=== PATIENT | female | born 1955 | race African-American/Black ===

== ENCOUNTER 2016-06-27 09:41 | Emergency (ER) ==
[2016-06-27 10:24] VITALS: BP 158/82
--- NOTE | 2016-06-27 10:49 | PROVIDER DOCUMENTATION ---
HPI-Rash/Wound/ReCheck - General Chief Complaint: Abscess Stated Complaint: ABSCESS Time Seen by Provider: 06/27/16 10:31 Source: patient Allergies/Adverse Reactions: Allergies Allergy/AdvReac Type Severity Reaction Status Date / Time amoxicillin Allergy Unknown RASH Verified 06/27/16 10:25 Home Medications: Home Medication List Medication Instructions Recorded Confirmed Last Taken Type Amlodipine [Norvasc] 5 mg PO DAILY 01/25/16 01/29/16 01/28/16 18:00 History Cyclobenzaprine [Flexeril] 10 mg PO TID 01/25/16 01/29/16 01/28/16 18:00 History Divalproex Sodium 125 mg PO DAILY 01/25/16 01/29/16 01/28/16 18:00 History Fenofibrate [Tricor] 145 mg PO QHS 01/25/16 01/29/16 01/28/16 18:00 History Gabapentin 300 mg PO DAILY 01/25/16 01/29/16 01/28/16 18:00 History Metoprolol [Lopressor] 25 mg PO DAILY 01/25/16 01/29/16 01/28/16 18:00 History Doxycycline 100 mg PO BID #20 capsule 02/01/16 Unknown Rx Oxycodone HCl/Acetaminophen 1 each PO DAILY #10 tablet 02/01/16 Unknown Rx [Endocet 7.5-325 mg Tablet] Hydrocodone/Acetaminophen [[place] 1 each PO Q4-6H PRN PRN #12 tablet 06/27/16 Unknown Rx 5-325 Tablet] - History of Present Illness-Dermatology Nature of Presenting Problem: Pt is 61 y/o F presents to the ED with pain at her perirectal region. Pt states having bilateral above the knee amputations due to poor circulation. Pt states pain has been present for 4 days. Location: reports: other (perirectal region) Quality: reports: painful Severity: reports: mild Onset/Duration: reports: 4 days ago Timing: reports: still present Context/Associated Symptoms: reports: denies symptoms Identifiable cause?: No Exposure: reports: unknown cause Locality of Occurance: Home Similar Symptoms Previously?: Yes Recently seen or treated by another doctor?: No Review of Systems - Adult - REVIEW OF SYSTEMS - ADULT Constitutional: denies: chills, fever Eyes: denies: blurred vision, double vision Ears, Nose, Mouth & Throat: denies: ear pain, nose pain, throat pain Cardiovascular: denies: chest pain, heart murmur, irregular heart rate Respiratory: denies: cough, shortness of breath, wheezing Gastrointestinal: denies: abdominal pain, diarrhea, nausea, vomiting Genitourinary: denies: dysuria, hematuria Musculoskeletal: denies: bone pain, joint pain, neck pain Integumentary: denies: hives, itching, rash Neurological: denies: dizziness/vertigo, headache/migraines Psychiatric: reports: anti-depressant use Hematologic/Lymphatic: reports: no symptoms reported Allergic/Immunologic: reports: no symptoms reported All Other Systems: Reviewed and Negative Past History - Adult - PAST MEDICAL HISTORY-ADULT Review of Records: reports: Nursing Assessment Review, Medications Reviewed, Social history reviewed & non-contributory. Major Childhood Illnesses: reports: denies history Cardiovascular: reports: CAD, HTN, hyperlipidemia, PVD Respiratory: reports: asthma, sleep apnea Gastrointestinal: reports: denies history Obstetrical/Gynecological: reports: denies history Genitourinary: reports: denies history Musculoskeletal: reports: denies history Neurological: reports: denies history Psychiatric: reports: psychiatric problems Endocrine/Immune: reports: HIV/AIDS Other Conditions: reports: other (atherosclerosis) - PRIOR SURGERIES/PROCEDURES Surgical/Procedure History: reports: hysterectomy, other (bilateral BKA, right big toe amputation) - IMMUNIZATION STATUS Childhood Immunizations: See Nurse Assessment Flu Vaccine: See Nurse Assessment - FAMILY HISTORY Family History: reviewed, not pertinent - SOCIAL HISTORY Smoking: quit greater than 1 year, cigarettes Provider spent 3-5 mins advising pt. on dangers of tobacco.: Discussed manners to quit use, and f/u contacts for add'l counseling. Substance Use: denies Living Situation: family Physical Exam-General - PHYSICAL EXAM-ADULT Initial Vital Signs Reviewed: Yes - CONSTITUTIONAL General Appearance: appears well, alert, no apparent distress - EYES Eyes: PERRL/EOMI, pink conjunctivae, fundi clear, no AV nicking - HEAD, EARS, NOSE, MOUTH & THROAT HENMT: normocephalic/atraumatic, moist mucous membranes, normal ENT inspection, TMs normal, pharynx normal - NECK Neck: non-tender, full range of motion, supple, normal inspection - RESPIRATORY Respiratory: chest non-tender, lungs clear, normal breath sounds, no pleuratic chest pain, no respiratory distress, no accessory muscle use - CARDIOVASCULAR Cardiovascular: normal peripheral pulses, regular rate, rhythm, no edema, no gallop, no JVD, no murmur - GASTROINTESTINAL (ABDOMEN) Abdominal Exam: normal bowel sounds, non tender, soft, no organomegaly, no pulsatile mass - LYMPHATIC Lymphatic: no adenopathy - MUSCULOSKELETAL Back Exam: normal inspection, no CVA tenderness, no vertebral tenderness Extremity: normal range of motion, non-tender - SKIN Integumentary: normal color, normal turgor, warm/dry, erythema (1 cm of erythema to perirectal region) - NEUROLOGIC Neurologic: 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 nml as tested, grossly normal, no motor/sensory deficits - PSYCHIATRIC Psych/Mental Status: normal mood/affect, normal thought content, normal thought process, oriented x 3 Progress - PLAN OF CARE/RESULTS Progress/Plan/Lab Results: Vital Signs - 24 hr 06/27/16 10:20 Temperature 96.5 F L Pulse Rate 78 Respiratory 18 Rate Blood Pressure 158/82 O2 Sat by Pulse 98 Oximetry Departure - Departure Time of Disposition Order: 10:50 DIAGNOSIS: Skin ulcer of perirectal region Qualifiers: Non-pressure ulcer stage: unspecified non-pressure ulcer stage Qualified Code(s ): L98.499 - Non-pressure chronic ulcer of skin of other sites with unspecified severity Disposition: HOME 01 Certified Medical Emergency: Emergent Condition: Stable Additional Instructions: Cleanse area of pain well then apply Edinson's butt paste maximum strength and place tucks pad over butt paste. ED Follow Up Instructions: You have been treated by a care provider in the Emergency Department. These instructions are being provided to you so you can have an understanding of how to care for yourself upon discharge. Upon discharge from the Emergency Department, you are responsible for making arrangements for follow-up care by a physician of your choice. Take all prescribed medications as directed. Return to the Emergency Department immediately for any new or worsening symptoms. You may call the Physician Referral phone number at [phone] to obtain a list of Physicians who are taking new patients. Attestation - Scribe Verification/Attestation Scribe:: Marline Ponce Acting as Scribe for:: Karina Melo Scribe documention review:: This chart was documented by a scribe and accurately reflects the service the provider performed and the decisions made by the provider.
== END 2016-06-27 11:03 | disposition home or self-care (01) ==
LOC: P.ED 09:41
DX: K62.6 Ulcer of anus and rectum (principal); K62.89 Other specified diseases of anus and rectum; L53.9 Erythematous condition, unspecified; I25.10 Atherosclerotic heart disease of native coronary artery without angina pectoris; I10 Essential (primary) hypertension; E78.5 Hyperlipidemia, unspecified; Z79.899 Other long term (current) drug therapy; Z89.612 Acquired absence of left leg above knee; Z89.611 Acquired absence of right leg above knee; Z89.411 Acquired absence of right great toe; Z87.891 Personal history of nicotine dependence
CPT/HCPCS: 99282

== ENCOUNTER 2016-08-29 16:20 | Inpatient (IN) ==
[2016-08-29] MEDS ORDERED: NS 1,000 ML IV ONE ×3 (19:20→23:27)
[2016-08-29] MEDS ORDERED: TYLENOL PR ONE (19:56)
[2016-08-29 20:18] LABS: ALLEN TEST YES; BLOOD TYPE ARTERIAL; DRAW SITE R RADIAL; METHB 1.9 % (0.0-1.5); O2(CT) 16.5 mL/dL (15.0-23.0); PCO2(98.6) 29 mmHg (35-45); PO2(98.6) 54 mmHg (60-100); SAMPLE BLOOD; SAO2 93.4 % (95.0-100.0); THB 13.1 g/dL (11.5-17.4); pH(98.6) 7.54 (7.35-7.45)
[2016-08-29 20:23] LABS: MODALITY CANNULA
[2016-08-29 20:36] LABS: BASO% 0.2 % (0.0-0.8); EOS# 2.49 X1000 (0.0-0.7); EOS% 13.9 % (0.0-10.0); HEMATOCRIT 36.8 % (37.0-47.0); HEMOGLOBIN 11.9 g/dL (12.0-16.0); IMM GRAN# 0.07 X1000 (0.0-0.04); IMM GRAN% 0.4 % (0.0-0.5); LYMPH# 2.12 X1000 (1.2-3.4); LYMPH% 11.8 % (20.5-51.1); MANUAL DIFF NEEDED? NO; MCH 29.2 PG (27-31); MCHC 32.3 g/dL (33-37); MCV 90.4 FL (81-99); MONO# 0.45 X1000 (0.11-0.59); MONO% 2.5 % (1.7-9.3); MPV 10.3 FL (7.4-10.4); NEUT% 71.2 % (42.2-75.2); PLT 113 X1000 (130-400); RBC 4.07 XMIL (4.2-5.4)
[2016-08-29 20:39] LABS: INR 1.34; PROTIME 14.3 Seconds (9.2-11.7)
[2016-08-29 21:01] LABS: AGAP 19; ALBUMIN 2.8 g/dL (3.5-5.0); ALKALINE PHOSPHATASE 74 U/L (32-104); BUN 15 mg/dL (8-22); CALCIUM 8.4 mg/dL (8.8-10.2); CHLORIDE 100 mmol/L (98-107); CK PROFILE 84 U/L (24-173); COSMO 284; GOT 30 U/L (10-30); GPT 10 U/L (10-36); POTASSIUM 3.8 mmol/L (3.5-5.1); SODIUM 142 mmol/L (136-145); TCO2 23 mmol/L (25-35); TOTAL BILIRUBIN 0.61 mg/dL (0.20-1.00); TOTAL PROTEIN 6.5 g/dL (6.3-8.3)
[2016-08-29 21:33] LABS: URINE SOURCE CATH
[2016-08-29 21:38] LABS: BILIRUBIN URINE SMALL (NEGATIVE); BLOOD URINE TRACE-INTACT (NEGATIVE); CLARITY CLEAR (CLEAR); COLOR YELLOW; GLUCOSE URINE NEGATIVE (NEGATIVE); LEUKOCYTES URINE NEGATIVE (NEGATIVE); NITRITE URINE NEGATIVE (NEGATIVE); PROTEIN URINE NEGATIVE (NEGATIVE); SP GRAVITY URINE 1.015; UROBILINOGEN URINE >= 8.0 EU/dL (0.2-1.0)
[2016-08-29 21:39] LABS: URINE CULTURE NEEDED? YES; URINE EPITHELIAL CELLS <10 /HPF (<10); URINE RBC <10 /HPF (<10); URINE WBC <10 /HPF (<10)
[2016-08-29 21:55] LABS: UR AMPHETAMINES QUAL NONE DETECTED (NONE DETECT); UR BARBITUATES QUAL NONE DETECTED (NONE DETECT); UR BENZODIAZEPIN QUAL NONE DETECTED (NONE DETECT); UR CANNABINOIDS QUAL NONE DETECTED (NONE DETECT); UR COCAINE QUAL NONE DETECTED (NONE DETECT); UR METHADONE QUAL NONE DETECTED (NONE DETECT); UR OPIATES QUAL NONE DETECTED (NONE DETECT); UR OXYCODONE QUAL PRESUMPTIVE POSITIVE (NONE DETECT); UR PCP QUAL NONE DETECTED (NONE DETECT)
[2016-08-29] MEDS ORDERED: LEVAQUIN 750 MG/D5W 750 MG/150 ML IVPB IV ONE (22:07)
[2016-08-29] MEDS ORDERED: OFIRMEV 1000 MG/ISOTONIC SOLN 1,000 MG/100 ML BOTTLE ONE (22:09)
[2016-08-29] MEDS ORDERED: OFIRMEV 1000 MG/ISOTONIC SOLN 1,000 MG/100 ML BOTTLE IV ONE (22:16)
[2016-08-29] MEDS ORDERED: OFIRMEV 1000 MG/ISOTONIC SOLN 1,000 MG/100 ML BOTTLE IV SCH (23:00)
[2016-08-29] MEDS ORDERED: MAXIPIME 2 GM/NS 2 GM/100 ML IVPB IV ONE (23:50)
[2016-08-29] MEDS ORDERED: VANCOMYCIN 1 GM/NS 1 GM/250 ML IVPB IV ONE (23:50)
[2016-08-30] MEDS: LEVOPHED 8 MG in D5 1/2 NS 250 ML IV SCH ×2 (01:00→09:46)
--- NOTE | 2016-08-30 02:19 | HISTORY AND PHYSICAL ---
PRIMARY CARE PHYSICIAN: Dr. Gary Calero. REASON FOR ADMISSION: Altered mental status change since this morning. HISTORY OF PRESENT ILLNESS: Ms. Makenzie Castillo is a 61-year-old lady with a past medical history of peripheral artery disease, status post left AKA and right AKA, secondary to peripheral artery disease, type 2 diabetes. Also has a history of hypertension, hyperlipidemia, bipolar disease, diverticulosis. Patient was brought in today by family members, i.e. her , because the patient began having rigors and broke out in blisters on her hands and all over her body. This was preceded by intense itching the day before. She also was brought in because she was significantly confused and restless in bed, unable to answer any questions. When I tried to communicate with the patient, she is able to tell me her name, and she knows that she is in [facility], but she keeps engaging in echolalia, and repeats the questions when I ask her, and repeats her answers over and over. She says she has been a little short of breath, and she has been coughing up some phlegm, cannot tell what color it is. Admits to having fever. She cannot tell me she has any belly problems, any neurological problems. REVIEW OF SYSTEMS: Very limited, due to patient's cognitive status. PAST MEDICAL HISTORY: Includes asthma, hyperlipidemia, and psychotic illness. She is allergic to amoxicillin, which causes her to have a rash. HOME MEDICATIONS: Amlodipine 5 mg daily, divalproex sodium 125 mg daily, Tricor 145 mg at bedtime, gabapentin 300 mg b.i.d., omeprazole 20 mg daily, oxycodone 1 tablet t.i.d., pravastatin 80 mg at bedtime, Ambien 5 mg at bedtime. SURGICAL HISTORY: Includes bilateral BKA, with subsequent left AKA. Prior toe amputations on the left foot. Exploratory laparotomy. Hysterectomy. She has also had a prior total knee replacement. SOCIAL HISTORY: Does not smoke, drink, or use illicit drugs. She lives at home. FAMILY HISTORY: Could not be obtained for obvious reasons. LABORATORY WORK: Chest film showed a questionable right middle lobe infiltrate. However, when I reviewed the CTA of her chest, I did not see any overt infiltrates. I did notice, however, that there may have been some wall thickening of the descending colon. Although, the x-ray was very poor study due to patient's movement. Also, the CT angiogram was a relatively poor study. I did not see any overt PE, but also, there was a lot of movement, motion artifact noted. CT of the head preliminary report did not show any acute bleed. White count 17,000, hemoglobin and hematocrit of 11 and 36, platelets 113,000, with 71% neutrophils. Her chemistries and troponin are totally normal. Lactate 3.4. PT 14. INR 1.3. UDS only positive for oxycodone. Alcohol level was undetected. Urinalysis just shows greater than 8 urobilinogen level, pH 7.54, pCO2 29, PO2 54, and lactulose 3.3. This was done on 2 L nasal cannula. Patient had wound cultures also sent off from both hands. She has bullous lesions, which are exuding purulent material. Other lab work: Ammonia was 56, albumin 2.8. Anion gap 19. Bicarbonate 23. EKG shows sinus tachycardia, with ST depressions in V5 and V6. PHYSICAL EXAMINATION: VITAL SIGNS: Blood pressure was initially 161/66, heart was 139, respiratory rate was in the 30s. Temperature was 103. When I saw her in the ER, her blood pressure had dropped to 80/46, and this was after 2 L. GENERAL: She is a middle-aged woman, who is in [id number] respiratory distress. She is alert and oriented to person and place, but not to time. HEENT: Head is normocephalic, atraumatic. Eyes: PERRLA, EOMI. Icteric, conjunctiva is pale. ENT and Oropharynx: Exam is grossly normal. She will follow basic commands, however. NECK: Supple. No JVD or carotid bruit. No thyromegaly. CHEST: Decreased air entry in both lung love. A few scattered wheezes. No crepitations heard. CARDIOVASCULAR: First and second heart sounds heard. No gallops, murmurs, or rubs. Rhythm is regular. ABDOMEN: Slightly protuberant, soft. No focal areas of tenderness. No rebound or guarding. Bowel sounds are hypoactive. RECTAL: Deferred at this time. EXTREMITIES: Patient has bilateral BKAs, with no breakdown of the stumps. No edema noted. No warmth or erythema of the stumps. Extremities are warm to touch. NEUROLOGICAL: Moves all extremities, including her lower extremities. No gross cranial nerve deficits. SKIN: A lot of palmar bullous lesions, with purulent material on both hands. Findings somewhat consistent probably superimposed infection of an allergic reaction preceding this. No erythema of the dorsum of her hands however, but they are warm. MUSCULOSKELETAL: Grossly unremarkable, within normal limits. ASSESSMENT AND PLAN: 1. Septicemia. Etiology could be from a skin infection. Cannot rule out an occult colitis. Start patient on vancomycin and Maxipime for broad spectrum coverage. However, patient does not seem to improve because she has a documented history of VRE and MRSA. Will consider switching the vancomycin to Zyvox. Consult ID for further management. Continue with IV fluid resuscitation. Check lactate levels to determine if we need to continue this. The patient will be initiated on Levophed in the interim. 2. Skin infection of hands. This could be from MRSA. Continue with vancomycin for now. The patient may have had an allergic reaction to her hand, i.e. pompholyx, and continued to itch, and this may have led to the infection seen on her hands. May consider starting on clindamycin for broader coverage if the patient continues to be septic. 3. Peripheral arterial disease. Consider Plavix at a later date. 4. Thrombocytopenia. Could be a sepsis effect. However, we need to follow this closely to ensure this is not an onset of disseminated intravascular coagulation. 5. Type 2 diabetes. Initiate sliding scale. Check A1c. 6. Hypertension. Withhold all antihypertensives. 7. Bipolar disorder. Withhold any ACCOUNTS PAYABLE REPRESENTATIVE-acting medications due to the patient's acute confusion, so as not to muddy the sanderson. 8. History of diverticulosis. CT scan findings will need to be assessed to see if the patient does not have infected diverticulitis. TIME SPENT: Total critical care time on this patient was 35 minutes. cc: Tyrone Shelby MD
[2016-08-30] MEDS ORDERED: VANCOMYCIN IV PER PHARMACY MISC SCH (03:21)
[2016-08-30] MEDS: PERCOCET-5 PO PRN ×2 (03:25→09:30)
[2016-08-30] MEDS: NS 1,000 ML IV SCH ×4 (03:30→22:56)
[2016-08-30] MEDS: LOVENOX SUBQ SCH (03:31)
[2016-08-30 04:23] LABS: AGAP 17; ALBUMIN 2.2 g/dL (3.5-5.0); ALKALINE PHOSPHATASE 57 U/L (32-104); BUN 14 mg/dL (8-22); CALCIUM 7.7 mg/dL (8.8-10.2); CHLORIDE 105 mmol/L (98-107); CK PROFILE 199 U/L (24-173); COSMO 285; GOT 28 U/L (10-30); GPT 7 U/L (10-36); SODIUM 144 mmol/L (136-145); TCO2 22 mmol/L (25-35); TOTAL BILIRUBIN 0.54 mg/dL (0.20-1.00); TOTAL PROTEIN 4.8 g/dL (6.3-8.3)
[2016-08-30 04:25] LABS: BASO% 0.3 % (0.0-0.8); EOS% 6.5 % (0.0-10.0); HEMATOCRIT 32.2 % (37.0-47.0); HEMOGLOBIN 10.4 g/dL (12.0-16.0); IMM GRAN# 0.07 X1000 (0.0-0.04); IMM GRAN% 0.5 % (0.0-0.5); LYMPH# 1.68 X1000 (1.2-3.4); LYMPH% 10.9 % (20.5-51.1); MANUAL DIFF NEEDED? YES; MCH 29.6 PG (27-31); MCHC 32.3 g/dL (33-37); MCV 91.7 FL (81-99); MONO# 0.91 X1000 (0.11-0.59); MONO% 5.9 % (1.7-9.3); MPV 11.5 FL (7.4-10.4); NEUT% 75.9 % (42.2-75.2); PLT 118 X1000 (130-400); RBC 3.51 XMIL (4.2-5.4)
[2016-08-30] MEDS: BLISTEX MEDICATED BERRY LIP BALM TOP PRN ×2 (04:39→19:32)
[2016-08-30 04:49] LABS: CK INDEX 1.6 (0.0-2.5); CK-MB 3.22 ng/mL (0.0-5.0)
[2016-08-30] MEDS ORDERED: VANCOMYCIN 1,400 MG in NS 250 ML IV ONE (05:00)
[2016-08-30 06:37] LABS: BANDS 2 % (0-1); EOS 8 % (1-10); LYMPHS 10 % (21-51); MONO 2 % (1-9); NRBC 3 % (0-0)
[2016-08-30 06:46] LABS: BASO% 0.3 % (0.0-0.8); EOS# 0.84 X1000 (0.0-0.7); HEMATOCRIT 31.7 % (37.0-47.0); HEMOGLOBIN 10.2 g/dL (12.0-16.0); IMM GRAN# 0.22 X1000 (0.0-0.04); IMM GRAN% 1.1 % (0.0-0.5); LYMPH# 1.94 X1000 (1.2-3.4); LYMPH% 9.3 % (20.5-51.1); MANUAL DIFF NEEDED? NO; MCH 29.4 PG (27-31); MCHC 32.2 g/dL (33-37); MCV 91.4 FL (81-99); MONO# 0.78 X1000 (0.11-0.59); MONO% 3.7 % (1.7-9.3); MPV 9.8 FL (7.4-10.4); NEUT% 81.6 % (42.2-75.2); PLT 217 X1000 (130-400); RBC 3.47 XMIL (4.2-5.4)
[2016-08-30 07:14] LABS: AGAP 15; ALBUMIN 2.1 g/dL (3.5-5.0); ALKALINE PHOSPHATASE 53 U/L (32-104); BUN 15 mg/dL (8-22); CALCIUM 7.5 mg/dL (8.8-10.2); CHLORIDE 107 mmol/L (98-107); COSMO 283; GOT 27 U/L (10-30); GPT 6 U/L (10-36); POTASSIUM 3.2 mmol/L (3.5-5.1); SODIUM 142 mmol/L (136-145); TCO2 20 mmol/L (25-35); TOTAL PROTEIN 5.1 g/dL (6.3-8.3)
--- NOTE | 2016-08-30 07:55 | Diag Imaging Result Document ---
PROCEDURE NAME: KUB ABDOMEN - 08/29/2016 PORTABLE CHEST/ABDOMEN: FINDINGS: The lung bases are clear. No free air beneath the diaphragm. The bowel loops are not dilated. No prominent stool identified. No organomegaly. Prominent atherosclerosis. IMPRESSION: No definite constipation.
--- NOTE | 2016-08-30 08:07 | CONSULTATION ---
DATE OF CONSULTATION: 08/30/2016 CONCLUSION: The patient was admitted to the hospital with an altered mental status. Unfortunately I am unable to get a history from the patient, and all the radiographic studies have been done but there are no reports of them. The feeling is that the patient is septic as manifested by low blood pressure, leukocytosis and a high lactate level. RECOMMENDATIONS: I agree with putting the patient on broad-spectrum antibiotic coverage, namely vancomycin and cefepime pending more data. DISCUSSION: The patient was unable provide for me a history. She was admitted to the hospital with an altered mental status. Her laboratory studies show a CBC that was 17,000 on admission, this morning it is 15,370. Hemoglobin is 10.4, and platelet count is 118,000. The patient has a creatinine which is 0.9 and the GFR is greater than 60. Liver function studies are negative. Blood, urine, and an x-ray from the patient's right hand are pending. The data in the computer shows that she has a medical history of asthma, hyperlipidemia, psychosis. ALLERGIES: Allergic to penicillin but is tolerating cefepime well at this time. REVIEW OF SYSTEMS: Unable to be obtained. HOME MEDICATIONS: 1. Amlodipine. 2. Divalproex. 3. Tricor. 4. Gabapentin. 5. Omeprazole. 6. Oxycodone. 7. Pravastatin. 8. Ambien. SURGICAL HISTORY: Includes bilateral arfhp-bdy-wgnf amputations with a subsequent left above-the- knee amputation. She also, even before those amputations, had amputation of her left foot. The patient has had an exploratory laparotomy, a hysterectomy, and a prior total knee arthroplasty. SOCIAL HISTORY: The patient does not smoke, drink, or use drugs. She lives at home. FAMILY HISTORY: Unable to be ascertained by me at this time. PHYSICAL EXAMINATION: Vital Signs: Temperature is 98.7 degrees, pulse 106, respirations 27, blood pressure 92/54. General: This is a somewhat ill-appearing, middle-aged female who is in no acute distress. Head, eyes, ears, nose, and throat: She appears to have decreased hearing. She was able to track with her eyes. She had very poor dental hygiene. Neck: No meningismus. Thorax: No increased AP diameter of the chest. Lungs: Clear to auscultation. Cardiovascular: Heart rate was regular. Abdomen: Soft. It was not tender. Extremities: Patient has bilateral leg amputations. Neurologic: Patient is awake. She was oriented as to place but not time. She did move her extremities to request. There was no tremor. Integument: No rash noted. Thank you for the consult. cc: Hernandez Norris MD
--- NOTE | 2016-08-30 08:08 | Diag Imaging Result Document ---
PROCEDURE NAME: HEAD W/O CONTRAST - 08/29/2016 CT HEAD WITHOUT CONTRAST: A dose-reduction protocol was used. COMPARISON: 04/25/2015. FINDINGS: There is no evidence of hemorrhage, mass effect, midline shift, or hydrocephalus. There are chronic bilateral basal ganglia calcifications. There is no evidence of infarct although acute infarcts may not be immediately visible. There is extensive paranasal sinus disease noted. IMPRESSION: No visible acute intracranial abnormality. No hemorrhage or mass effect. There is extensive paranasal sinus disease noted. A [facility] physician provided preliminary results at 10:52 p.m. on 08/29/2016.
--- NOTE | 2016-08-30 08:10 | Diag Imaging Result Document ---
PROCEDURE NAME: CHEST-PORTABLE - 08/29/2016 PORTABLE CHEST: COMPARISON: Compared to 08/25/2015. FINDINGS: The PICC line has been removed. The lungs are well expanded. The heart is not enlarged. The vessels are not distended. No pleural effusions identified. No consolidation. IMPRESSION: Negative chest except for persistent central vascular prominence.
--- NOTE | 2016-08-30 08:13 | Diag Imaging Result Document ---
PROCEDURE NAME: ANGIOGRAM/PULMONARY ARTERIES - 08/29/2016 CT ANGIOGRAM OF PULMONARY ARTERIES WITH CONTRAST: Exam performed with intravenous contrast. A dose-reduction protocol was used. Axial and coronal images are obtained. COMPARISON: No comparison exam. FINDINGS: There are artifacts from motion which limit detail. There are no filling defects identified in the pulmonary arteries. There is no indication of aortic dissection. There are emphysematous changes which are most prominent at the upper lobes. There is no consolidation, pleural effusion, or pneumothorax identified. There is mild linear atelectasis or scarring at the right base. There are scattered nonspecific subcentimeter nodular opacities in the left lung. There are nonspecific small mediastinal lymph nodes. There are nonspecific bilateral axillary lymph nodes also noted. There are extensive atherosclerotic calcifications noted. There is a 3.5 cm cyst noted at the visualized upper left kidney. IMPRESSION: 1. Motion artifacts which limit detail. No evidence of pulmonary embolism. 2. Emphysematous changes. 3. Scattered nonspecific small nodular opacities in the left lung. Follow-up CT thorax in about 3 months is recommended. 4. No pneumonia. No pneumothorax. A [facility] physician provided preliminary results at 10:49 p.m. on 08/29/2016.
--- NOTE | 2016-08-30 08:38 | Diag Imaging Result Document ---
PROCEDURE NAME: CHEST-1 VIEW - 08/30/2016 SITTING UPRIGHT AP PORTABLE CHEST: COMPARISON: 08/29/2016. FINDINGS: The lungs are well expanded. The heart is not enlarged. The vessels are not distended. There are no infiltrates. No pleural effusions identified. IMPRESSION: No pneumonia.
[2016-08-30] MEDS ORDERED: EPINEPHRINE SUBQ ONE (12:58)
[2016-08-30] MEDS ORDERED: HYDROXYZINE IM ONE (13:01)
[2016-08-30] MEDS: SOLU-MEDROL IV SCH ×2 (13:35→20:18)
[2016-08-30] MEDS: TYLENOL PO PRN ×2 (13:35→19:31)
[2016-08-30] MEDS: PEPCID IV SCH (13:35)
[2016-08-30] MEDS: SODIUM CHLORIDE 0.9% INJ SCH (13:36)
--- NOTE | 2016-08-30 13:49 | PROGRESS NOTE ---
DATE: 08/30/2016 SUBJECTIVE: Ms. Castillo got admitted yesterday. She has been having itching and some rash, especially on her hands and all over her body for the past couple of days, and facial swelling. Came into the emergency department for that. The patient was found to be hypotensive and tachycardic, was subsequently admitted for sepsis, but today she refers to be doing a little better. Continues to be itching all over. OBJECTIVE: Vital Signs: Blood pressure is 97/61, pulse is 89, respirations 23, temperature 97.3 degrees, and patient is saturating 100% on room air. General: Ms. Castillo is a 61-year-old female. She is in bed. She did not seem to be in any distress. HEENT: Mucosa is pink and moist. Anicteric. Acyanotic. Neck: Supple. There is no JVD. Chest: Air entry is bilaterally reduced. There are a few expiratory wheezes. Cardiovascular: Regular rate and rhythm. Abdomen: Soft, nontender. Extremities: Patient has bilateral AKAs. Skin: Patient has diffuse hyperemic skin, more so on the lower back. She also has erythematous papular rash all over the hands, and the hands have some blisters with some purulent material in some of them. Patient has scratch quick all over her back the upper back and lower back, where ever the hand can reach. Of note, the mouth mucosa has no lesions. LABORATORY DATA: WBC is 20.86. Hemoglobin is 10.2. Platelet count is 217,000. Patient had only 2% bands on the peripheral smear. Sodium is 142, potassium is 3.2, chloride is 107, bicarbonate is 28, BUN is 21, and glucose is 78. So far, blood cultures have shown Gram-positive cocci, 2 out of 2. ASSESSMENT: 1. Shock. Unclear of the etiology. I think this is mostly related to anaphylactic shock. Patient is having itching, has some skin rash, and skin is hyperemic. Unsure what is the offending medication or the offending food, but for now we will treat her with a dose of an epinephrine shot, start her on hydroxyzine, famotidine, and some steroids, and go from there. 2. Gram-positive cocci bacteremia. I think this is subsequent to the skin abrasions and wounds from the scratches. Will be pending on the identification and sensitivity on this Gram- positive cocci. For now, patient will continue to be on the antibiotics. 3. Hypertension noted. 4. History of bipolar disorder. 5. Hypokalemia. Will replace this. 6. Hypoxemia. So far, a CTA was negative for pulmonary embolus. There was no pneumothorax and no evidence of pneumonia. The patient sounds slightly congested. I would therefore cut back on the current fluid. cc: Jm Bell MD
[2016-08-30] MEDS: MAXIPIME 2 GM/NS 2 GM/100 ML IVPB IV SCH (14:13)
[2016-08-30] MEDS ORDERED: NS 250 ML ONE (14:14)
[2016-08-30] MEDS ORDERED: HYDROXYZINE IM SCH (19:15)
[2016-08-30] MEDS: HYDROXYZINE IM SCH (19:25)
[2016-08-31] MEDS: PEPCID IV SCH ×2 (00:45→12:54)
[2016-08-31] MEDS: HYDROXYZINE IM SCH ×4 (00:45→19:24)
[2016-08-31] MEDS: SODIUM CHLORIDE 0.9% INJ SCH ×2 (00:45→12:54)
[2016-08-31] MEDS: TYLENOL PO PRN ×3 (01:00→20:44)
[2016-08-31] MEDS: MAXIPIME 2 GM/NS 2 GM/100 ML IVPB IV SCH ×2 (02:00→13:02)
[2016-08-31] MEDS: VANCOMYCIN 1,400 MG in NS 250 ML IV SCH (04:15)
[2016-08-31] MEDS: LOVENOX SUBQ SCH (04:18)
[2016-08-31] MEDS: SOLU-MEDROL IV SCH ×3 (04:18→20:44)
[2016-08-31] MEDS: NS 1,000 ML IV SCH ×2 (05:55→12:53)
[2016-08-31 07:15] LABS: AGAP 10; ALBUMIN 1.7 g/dL (3.5-5.0); ALKALINE PHOSPHATASE 62 U/L (32-104); BUN 16 mg/dL (8-22); CALCIUM 7.2 mg/dL (8.8-10.2); CHLORIDE 113 mmol/L (98-107); COSMO 292; GOT 28 U/L (10-30); GPT 8 U/L (10-36); POTASSIUM 3.7 mmol/L (3.5-5.1); SODIUM 146 mmol/L (136-145); TCO2 23 mmol/L (25-35); TOTAL BILIRUBIN 0.47 mg/dL (0.20-1.00); TOTAL PROTEIN 4.6 g/dL (6.3-8.3)
[2016-08-31 07:26] LABS: BASO% 0.1 % (0.0-0.8); EOS# 0.11 X1000 (0.0-0.7); EOS% 0.8 % (0.0-10.0); HEMATOCRIT 27.5 % (37.0-47.0); HEMOGLOBIN 8.6 g/dL (12.0-16.0); IMM GRAN# 0.07 X1000 (0.0-0.04); IMM GRAN% 0.5 % (0.0-0.5); LYMPH# 1.72 X1000 (1.2-3.4); LYMPH% 12.4 % (20.5-51.1); MANUAL DIFF NEEDED? YES; MCHC 31.3 g/dL (33-37); MCV 92.6 FL (81-99); MONO# 0.35 X1000 (0.11-0.59); MONO% 2.5 % (1.7-9.3); MPV 9.7 FL (7.4-10.4); NEUT% 83.7 % (42.2-75.2); RBC 2.97 XMIL (4.2-5.4)
[2016-08-31 07:44] LABS: BANDS 34 % (0-1); LYMPHS 6 % (21-51); MONO 4 % (1-9)
[2016-08-31 08:14] LABS: PLT 173 X1000 (130-400)
[2016-08-31] MEDS: D5 1/2 NS 1,000 ML IV SCH (15:20)
--- NOTE | 2016-08-31 15:25 | PROGRESS NOTE ---
DATE: 08/31/2016 SUBJECTIVE: Today, Ms. Castillo referred to be doing a whole lot better. Still continues to have some generalized pains, but itching has significantly improved. OBJECTIVE: Vital signs: Blood pressure is 159/68, pulse is 79, respirations 21 , and temperature is 97.6 degrees. General: Ms. Castillo is a 61-year-old female. She is in bed, not seemingly distressed. HEENT: Mucosa is pink and moist. Anicteric. Acyanotic. Neck: Supple. Chest: Clear. Cardiovascular: Regular rate and rhythm. Abdomen: Soft, nontender. Extremities: There are bilateral AKAs. Skin: Has multiple excoriations and erythematous papular rash, especially on the hands and on the arms. LABORATORY DATA: WBC is 13.84, hemoglobin is 8.6, platelet count of 171,000. There is 34% bands on peripheral smear. Chemistry: Sodium is 146. Potassium is 3.7. Chloride is 113. Cortisol level is sufficient. Blood culture is positive for Gram-positive cocci, still pending ID. The wound culture also shows Gram-positive cocci. ASSESSMENT: 1. Shock, likely septic on top of anaphylaxis. Patient is currently off pressors. 2. Gram-positive cocci bacteremia. source is likely from the hand blister . We are still waiting on identification and sensitivity. 3. Hypertension. Noted. 4. History of bipolar disorder. 5. Severe allergic reaction. Patient will continue with the current steroid, H1 and H2 blockers. 6. Mild Hypernatremia with hyperchloremia. We will change the baseline fluid to D5 half normal saline. cc: Jm Bell MD [facility] CENTERGrazyna
--- NOTE | 2016-08-31 19:49 | PROGRESS NOTE ---
DATE: 08/31/2016 PRESENT ILLNESS: The patient has a positive blood culture for gram positive cocci and gram positive cocci also have been isolated from the patient's right hand. Therefore, it appears to me the patient has a right hand infection such as cellulitis which is the origin for the patient's gram-positive coccal bacteremia. MEDICATIONS: The patient is on vancomycin as a single agent. Cefepime was stopped. PHYSICAL EXAMINATION: Vital Signs: Temperature is 97.1 degrees, pulse 82, respirations 21, blood pressure 158/82. General: This is a fairly healthy-appearing middle-aged female. She is alert today and talking. Lungs: Clear to auscultation. Cardiovascular: Regular heart rate. Abdomen: Soft and nontender. Extremities: The patient has a left qwuec-fsy-tykg amputation and a right fyphc-tqg-pdzn amputation. The patient's right hand is less swollen today. There is no drainage, no erythema and it is not tender. LABORATORY AND X-RAY: The patient's CBC showed a white count today of 13,840, hemoglobin 8.6, and platelet count 173,000. Creatinine 0.5, GFR is greater than 60. Blood and right hand cultures are growing gram positive cocci. ASSESSMENT AND PLAN: 1. Patient has a right hand cellulitis from which bacteremia occurred. The plan would be to continue treatment with vancomycin pending culture results. 2. Patient's comorbidities include that the patient has a peripheral vascular disease. I cannot find any and any other comorbid condition. cc: Hernandez Norris MD
[2016-08-31] MEDS: MORPHINE IV PRN (21:13)
[2016-09-01] MEDS: MORPHINE IV PRN ×4 (00:29→21:20)
[2016-09-01] MEDS: PEPCID IV SCH ×2 (00:33→13:27)
[2016-09-01] MEDS: HYDROXYZINE IM SCH ×4 (00:33→18:43)
[2016-09-01] MEDS: ZOFRAN IV PRN ×2 (03:35→10:50)
[2016-09-01] MEDS: D5 1/2 NS 1,000 ML IV SCH (03:35)
[2016-09-01] MEDS: VANCOMYCIN 1,400 MG in NS 250 ML IV SCH (04:43)
[2016-09-01] MEDS: LOVENOX SUBQ SCH (04:44)
[2016-09-01] MEDS: SOLU-MEDROL IV SCH ×3 (04:45→20:10)
[2016-09-01 05:06] LABS: MANUAL DIFF NEEDED? NO
[2016-09-01 05:31] LABS: BASO% 0.1 % (0.0-0.8); EOS# 0.11 X1000 (0.0-0.7); EOS% 0.7 % (0.0-10.0); HEMATOCRIT 26.6 % (37.0-47.0); HEMOGLOBIN 8.3 g/dL (12.0-16.0); IMM GRAN# 0.08 X1000 (0.0-0.04); IMM GRAN% 0.5 % (0.0-0.5); LYMPH# 2.23 X1000 (1.2-3.4); LYMPH% 14.7 % (20.5-51.1); MCH 28.7 PG (27-31); MCHC 31.2 g/dL (33-37); MONO# 0.76 X1000 (0.11-0.59); MPV 9.7 FL (7.4-10.4); PLT 74 X1000 (130-400); RBC 2.89 XMIL (4.2-5.4)
[2016-09-01 05:37] LABS: AGAP 10; BUN 16 mg/dL (8-22); CALCIUM 7.8 mg/dL (8.8-10.2); CHLORIDE 112 mmol/L (98-107); COSMO 288; POTASSIUM 3.9 mmol/L (3.5-5.1); SODIUM 144 mmol/L (136-145); TCO2 22 mmol/L (25-35)
[2016-09-01] MEDS ORDERED: D5 1/2 NS 1,000 ML IV SCH (05:58)
--- NOTE | 2016-09-01 15:23 | PROGRESS NOTE ---
DATE: 09/01/2016 SUBJECTIVE: Today Ms. Castillo referred to be doing a little better. We actually saw her and she was sleeping. We had to wake her up for the encounter. OBJECTIVE: Vital signs: Blood pressure is 135/81, pulse of 83, respirations 23, temperature 98.3 degrees. Patient is saturating 100% on room air. General: Ms. Castillo is a 61-year-old female. She is in bed, in no distress. HEENT: Mucosa is pink and moist. Anicteric. Acyanotic. Neck: Supple. Chest: Good air entry bilaterally. No crepitations. No rhonchi. Cardiovascular: Regular rate and rhythm. No murmurs, no rubs. Abdomen: Soft, nontender. Extremities: Bilateral above-knee amputations. Skin: Has multiple excoriations and a erythematous squamous lesions all over on the hands and on the forearms. INTEGRATION AIDE: Patient is alert and oriented. LABORATORY DATA: WBC is slightly up to 15.17, hemoglobin is 8.3, platelet count is 74,000. Chemistry: Sodium is 144, potassium is 3.9, chloride is 102, bicarb is 22. So far blood cultures strep equisim and the right wound culture also has grown the same strep equisim and staphylococcal areas MRSA. ASSESSMENT: 1. Shock on presentation, likely septic on top of anaphylaxis. 2. Strep equisim bacteremia. Patient is currently on antibiotics. A subsequent blood culture is still pending. 3. Cellulitis with strep and staph infection. 4. Severe allergic reaction, improved. 5. Hypertension. We will restart the patient on her home medications. 6. Bipolar disorder. Noted. PLAN: In general I think Ms. Castillo is relatively stable now. Her blood pressures and now high. We are going to restart her on her home blood pressure medications. We will discontinue the IV fluids and encourage the patient to drink more. We are going to discontinue the Serrano catheter. We will encourage the staff to sit the patient up in bed. We will transfer the patient from the ICU to regular floor. cc: Jm Bell MD
[2016-09-01] MEDS: BENADRYL PO PRN ×2 (15:55→21:57)
--- NOTE | 2016-09-01 17:07 | PROGRESS NOTE ---
DATE: 09/01/2016 PRESENT ILLNESS: The patient has a strep bacteremia and an infection in her right hand from which strep and MRSA were grown. Therefore, it appears that the right hand was the source of the patient's bacteremia. MEDICATIONS: Patient is on vancomycin as a single agent. PHYSICAL EXAMINATION: Vital Signs: Temperature is 97 degrees, pulse 74, respirations 21, blood pressure 182/94. General: This is a fairly a fairly healthy-appearing, middle-aged female who is in no acute distress. Lungs: Clear to auscultation. Cardiovascular: Heart rate was regular. Abdomen: Soft and tender. Extremities: Patient has a right dulir-drp-weul amputation and a left qtbqq-uzv-buew amputation. The patient's right hand is less swollen. She can move it and it is not painful. There is no drainage coming from it. LAB AND X-RAY: The patient's CBC today shows a white count of 15,170, hemoglobin 8.3, and platelet count 74,000. Creatinine 0.4. GFR is greater than 60. The patient's hand grew methicillin-resistant Staph aureus and strep and the patient's blood culture grew the same strep. ASSESSMENT AND PLAN: The patient has a right hand cellulitis from which the bacteremia occurred. The patient's comorbidities include peripheral vascular disease. When the patient moves to the floor I intend to get an MRI of her right hand just to make sure that the infection has not involved bone. cc: Hernandez Norris MD
[2016-09-02] MEDS: HYDROXYZINE IM SCH ×4 (00:31→20:02)
[2016-09-02] MEDS: PEPCID IV SCH ×2 (00:31→13:06)
[2016-09-02] MEDS: MORPHINE IV PRN ×3 (01:17→20:01)
[2016-09-02 05:02] LABS: BASO% 0.3 % (0.0-0.8); EOS# 0.03 X1000 (0.0-0.7); EOS% 0.3 % (0.0-10.0); HEMATOCRIT 27.1 % (37.0-47.0); HEMOGLOBIN 8.6 g/dL (12.0-16.0); IMM GRAN% 1.7 % (0.0-0.5); LYMPH# 2.42 X1000 (1.2-3.4); LYMPH% 20.5 % (20.5-51.1); MANUAL DIFF NEEDED? YES; MCH 28.9 PG (27-31); MCHC 31.7 g/dL (33-37); MCV 90.9 FL (81-99); MONO# 0.55 X1000 (0.11-0.59); MONO% 4.6 % (1.7-9.3); MPV 11.2 FL (7.4-10.4); NEUT% 72.6 % (42.2-75.2); PLT 58 X1000 (130-400); RBC 2.98 XMIL (4.2-5.4)
[2016-09-02 05:28] LABS: AGAP 9; ALBUMIN 2.2 g/dL (3.5-5.0); ALKALINE PHOSPHATASE 62 U/L (32-104); BUN 16 mg/dL (8-22); CHLORIDE 109 mmol/L (98-107); COSMO 286; GOT 27 U/L (10-30); GPT 12 U/L (10-36); POTASSIUM 4.2 mmol/L (3.5-5.1); SODIUM 143 mmol/L (136-145); TCO2 25 mmol/L (25-35); TOTAL BILIRUBIN 0.29 mg/dL (0.20-1.00); TOTAL PROTEIN 4.8 g/dL (6.3-8.3)
[2016-09-02 06:16] LABS: BANDS 14 % (0-1); LYMPHS 2 % (21-51); MONO 2 % (1-9); NRBC 1 % (0-0)
[2016-09-02 06:18] LABS: HYPOCHROM 1+
[2016-09-02 06:19] LABS: LARGE PLATELETS OCCASIONAL
[2016-09-02] MEDS: VANCOMYCIN 1,400 MG in NS 250 ML IV SCH (06:23)
[2016-09-02] MEDS: LOVENOX SUBQ SCH (06:23)
[2016-09-02] MEDS: SOLU-MEDROL IV SCH ×3 (06:24→20:03)
[2016-09-02] MEDS: TYLENOL PO PRN (09:52)
--- NOTE | 2016-09-02 15:35 | PROGRESS NOTE ---
DATE: 09/02/2016 SUBJECTIVE: Today Ms. Castillo referred to be doing a whole lot better. Shortness of breath has remarkably improved. OBJECTIVE: Vital signs: Blood pressure is 164/77, pulse of 52, respirations 15 , temperature is 97.1 degrees. General: On general exam, Ms. Castillo is a 61-year-old, female. She is in bed, not seemingly distressed. HEENT: Mucosa is pink and moist. Anicteric. Acyanotic. Neck: Supple. Chest: Good air entry bilateral. A few bibasilar crepitations. Cardiovascular: Regular rate and rhythm. Abdomen: Soft, nontender. Extremities: There are bilateral BKAs. Skin: Multiple excoriations and erythematous squamous lesions in the arm and the forearm, which is itchy. LABORATORY DATA: WBC is 11.83, hemoglobin is 8.6, platelet count went down to 58. There is 14% bands. There are no schistocytes. Chemistries reviewed and completely unremarkable. ASSESSMENT: 1. Shock on presentation likely septic on top of anaphylaxis. 2. Streptococcus equisim bacteremia. Patient is on antibiotics and is being followed by Dr. Norris. Subsequent blood cultures have been 48 hours negative. 3. Cellulitis with Streptococcus and Staphylococcus infections, improving. 4. Severe allergy reaction. This is also improving. 5. Hypertension. We will restart the patient on her home medications. 6. Bipolar disorder noted. MEDICATIONS: Currently the patient is on: 1. Benadryl 25 mg p.o. q. 4-6 hours. 2. Pepcid 20 mg IV q. 12 hours. 3. Prednisone 20 mg IV q. 8 hours. 4. Vancomycin. 5. Zofran. 6. Morphine. cc: MD GINNY Guzman
--- NOTE | 2016-09-02 20:12 | PROGRESS NOTE ---
DATE: 09/02/2016 PRESENT ILLNESS: The patient has a strep and methicillin-resistant Staph aureus infection of her right hand and a streptococcal bacteremia. MEDICATIONS: Patient is receiving vancomycin as a single agent. This is day 2 of treatment since the patient has had negative blood cultures. PHYSICAL EXAMINATION: Vital Signs: Temperature is 99.7 degrees, pulse 60, respirations 18, blood pressure 165/66. General: This is a fairly healthy-appearing middle-aged female. She is in no acute distress. Lungs: Clear to auscultation. Cardiovascular: Regular heart rate. Abdomen: Soft and nontender. Extremities: The patient's right hand is very minimally swollen. It is not erythematous or tender. LAB AND X-RAY: The patient's CBC today showed a white count of 11,830, hemoglobin 8.6 and platelet count 58,000. Patient's creatinine 0.5. The GFR is greater than 60. ASSESSMENT AND PLAN: Patient has right hand cellulitis with an associated bacteremia. I plan to continue the patient's antibiotic and I have also ordered an MRI of the right hand to look for underlying osteomyelitis. COMORBIDITIES: Include peripheral vascular disease. cc: Hernandez Norris MD
[2016-09-03] MEDS: MORPHINE IV PRN ×6 (00:34→23:20)
[2016-09-03] MEDS: PEPCID IV SCH (00:37)
[2016-09-03] MEDS: HYDROXYZINE IM SCH ×2 (00:37→06:20)
[2016-09-03] MEDS: SODIUM CHLORIDE 0.9% INJ SCH (00:38)
[2016-09-03] MEDS: VANCOMYCIN 1,600 MG in NS 250 ML IV SCH (05:09)
[2016-09-03] MEDS: SOLU-MEDROL IV SCH (05:09)
[2016-09-03 06:45] LABS: INR 1.2; PROTIME 12.7 Seconds (9.2-11.7)
[2016-09-03] MEDS ORDERED: NORVASC PO SCH (09:15)
[2016-09-03 09:40] LABS: AGAP 10; BUN 19 mg/dL (8-22); CALCIUM 7.8 mg/dL (8.8-10.2); CHLORIDE 108 mmol/L (98-107); COSMO 288; POTASSIUM 4.1 mmol/L (3.5-5.1); SODIUM 143 mmol/L (136-145); TCO2 25 mmol/L (25-35)
[2016-09-03 09:42] LABS: BASO% 0.4 % (0.0-0.8); EOS# 0.02 X1000 (0.0-0.7); EOS% 0.2 % (0.0-10.0); HEMATOCRIT 27.5 % (37.0-47.0); HEMOGLOBIN 8.7 g/dL (12.0-16.0); IMM GRAN# 0.22 X1000 (0.0-0.04); IMM GRAN% 2.3 % (0.0-0.5); LYMPH# 2.89 X1000 (1.2-3.4); LYMPH% 30.6 % (20.5-51.1); MANUAL DIFF NEEDED? YES; MCH 29.1 PG (27-31); MCHC 31.6 g/dL (33-37); MONO# 0.82 X1000 (0.11-0.59); MONO% 8.7 % (1.7-9.3); MPV 11.1 FL (7.4-10.4); NEUT% 57.8 % (42.2-75.2); PLT 69 X1000 (130-400); RBC 2.99 XMIL (4.2-5.4)
[2016-09-03 10:10] LABS: BANDS 6 % (0-1); LYMPHS 26 % (21-51); MONO 10 % (1-9)
--- NOTE | 2016-09-03 12:40 | PROGRESS NOTE ---
DATE: 09/03/2016 SUBJECTIVE: Today, Ms. Castillo refers to be doing a whole lot better. Has generalized pains, but that is not new. No acute medical problems. OBJECTIVE: Vital signs: Blood pressure is 179/69, pulse of 73, respirations 20 , temperature 98.1 degrees, and patient is saturating in ambient air. General: Ms. Casitllo is a 61- year-old female. She is in bed, not seemingly distressed. HEENT: Mucosa is pink and moist. Anicteric. Acyanotic. Neck: Supple. Chest: Good air entry bilaterally. No crepitations. No rhonchi. Cardiovascular: Regular rate and rhythm. Abdomen: Soft, nontender. Extremities: Bilateral AKAs. Integument: Rash on the skin has significantly improved. LABORATORY DATA: WBC is down to 9.44, hemoglobin is 8.7, platelet count of 69, 000, which is slightly improved from yesterday. There are only 6% bands on peripheral smear. Chemistry is reviewed, completely normal. ASSESSMENT: 1. Shock on presentation, likely septic on top of anaphylaxis. 2. Streptococcus equisim bacteremia. The patient is getting vancomycin. 3. Staphylococcal with streptococcal cellulitis of the hand. This has significantly improved. 4. Severe allergic reaction has improved. 5. Hypertension. The patient has been started on amlodipine. 6. Bipolar disorder. Noted. 7. Chronic pain syndrome. In general, Ms. Castillo is doing a whole lot better. We are going to remove the EJ from the neck and will switch most of her medications to oral except the IV antibiotics, which she will continue having through the PICC line. I think clinically Ms. Castillo has significantly improved. We will be waiting on Dr. Norris to make a decision as to how long she is going to be on IV antibiotics and we can plan for her discharge. We will get the assistance team to help her sit up in the chair. Patient normally moves around at home in a wheelchair. We will get one for her and get her to move around. cc: Jm Bell MD [facility]
[2016-09-03] MEDS: TYLENOL PO PRN (13:00)
[2016-09-03] MEDS: PRAVACHOL PO SCH (21:52)
[2016-09-03] MEDS: BENADRYL PO SCH (21:52)
[2016-09-03] MEDS: NEURONTIN PO SCH (21:53)
[2016-09-04] MEDS: MORPHINE IV PRN ×5 (05:05→23:12)
[2016-09-04] MEDS: VANCOMYCIN 1,600 MG in NS 250 ML IV SCH (05:05)
[2016-09-04] MEDS: PRILOSEC PO SCH (06:49)
[2016-09-04] MEDS: PREDNISONE PO SCH (08:49)
[2016-09-04] MEDS: BENADRYL PO SCH ×2 (08:49→21:51)
[2016-09-04] MEDS: NEURONTIN PO SCH ×2 (08:49→21:52)
[2016-09-04] MEDS: NORVASC PO SCH (08:53)
[2016-09-04] MEDS: BIDIL PO SCH ×3 (08:53→21:51)
--- NOTE | 2016-09-04 12:40 | Diag Imaging Result Document ---
PROCEDURE NAME: KNEE 1-2 VIEWS-RIGHT - 09/04/2016 PLAIN RADIOGRAPH OF THE RIGHT KNEE, 2 VIEWS: COMPARISON: 08/16/2016. FINDINGS: There has been a previous below the knee amputation. There has been a previous right knee arthroplasty. There is mild lucency adjacent to the femoral component of the hardware which could indicate loosening. There is a bony fragment at the lateral aspect of the distal fibula that is stable and probably represents dystrophic calcification or a chronic bony fragment related to prior surgery and/or injury. Otherwise, no definite fracture, dislocation or intrinsic osseous lesion is appreciated. There is soft tissue edema at the lateral aspect of the knee. IMPRESSION: 1. Soft tissue edema at the lateral aspect of the knee and a bony fragment lateral to the distal femur. This fragment appears to be stable and it probably is chronic representing a dystrophic calcification or a residual fragment related to prior trauma or surgery. Please correlate clinically. 2. Postsurgical changes related to below the knee amputation and knee arthroplasty. There is some stable lucency adjacent to the femoral hardware component suggesting possible loosening. [facility]
--- NOTE | 2016-09-04 16:47 | PROGRESS NOTE ---
DATE: 09/04/2016 SUBJECTIVE: Today, Ms. Castillo referred to be doing fine. She continues to have some pain in the right knee. OBJECTIVE: Vital signs: Blood pressure is 181/69, pulse of 79, respirations 16 , temperature is 98.6 degrees. General Examination: Ms. Castillo is a 61-year-old female. She is in bed, not in any distress. HEENT: Mucosa is pink and moist. Anicteric. Acyanotic. Neck: Supple. Chest: Good air entry bilateral. No crepitations. No rhonchi. Cardiovascular: Regular rate and rhythm. Abdomen: Soft. Extremities: The right knee is slightly tender. There is bilateral below the knee amputations. LABORATORY DATA: WBC is down to 9.44, hemoglobin is 8.9, platelet count of 69, 000. There is only 6% of bands on peripheral smear now. Chemistries reviewed completely normal. ASSESSMENT: 1. Shock on presentation, likely septic on top of some anaphylaxis. Streptococcus equisimilis bacteremia. Subsequent blood cultures have been negative. 2. Staphylococcal aureus and strep cellulitis of the hand. This is significantly improved. 3. Allergy reaction, resolved. 4. Hypertension. This continues to be uncontrolled. We have added Bidil to the amlodipine. 5. Bipolar disorder, stable. 6. Chronic pain syndrome, noted. 7. Right knee pain. Unsure. We did an x-ray which shows there is some postsurgical changes; however, the x-rays reveal some stable lucency adjacent to the femoral hardware components suggesting possible loosening. We would discuss this with orthopedic colleagues to see if there is anything that they would want to do urgently. cc: Jm Bell MD [facility]
[2016-09-04] MEDS: PRAVACHOL PO SCH (21:52)
[2016-09-05] MEDS: MORPHINE IV PRN ×5 (03:59→20:48)
[2016-09-05] MEDS: VANCOMYCIN 1,600 MG in NS 250 ML IV SCH (05:29)
[2016-09-05] MEDS: PRILOSEC PO SCH (06:25)
[2016-09-05 07:19] LABS: BASO% 0.2 % (0.0-0.8); EOS# 0.49 X1000 (0.0-0.7); EOS% 4.4 % (0.0-10.0); HEMATOCRIT 24.8 % (37.0-47.0); HEMOGLOBIN 7.7 g/dL (12.0-16.0); IMM GRAN# 0.23 X1000 (0.0-0.04); IMM GRAN% 2.1 % (0.0-0.5); LYMPH# 4.62 X1000 (1.2-3.4); LYMPH% 41.9 % (20.5-51.1); MANUAL DIFF NEEDED? YES; MCH 28.6 PG (27-31); MCV 92.2 FL (81-99); MONO# 1.68 X1000 (0.11-0.59); MONO% 15.2 % (1.7-9.3); MPV 10.1 FL (7.4-10.4); NEUT% 36.2 % (42.2-75.2); PLT 205 X1000 (130-400); RBC 2.69 XMIL (4.2-5.4)
[2016-09-05 07:50] LABS: AGAP 8; ALBUMIN 2.1 g/dL (3.5-5.0); ALKALINE PHOSPHATASE 51 U/L (32-104); BUN 11 mg/dL (8-22); CALCIUM 7.3 mg/dL (8.8-10.2); CHLORIDE 105 mmol/L (98-107); COSMO 284; GOT 18 U/L (10-30); GPT 11 U/L (10-36); POTASSIUM 3.2 mmol/L (3.5-5.1); SODIUM 144 mmol/L (136-145); TCO2 31 mmol/L (25-35); TOTAL BILIRUBIN 0.39 mg/dL (0.20-1.00); TOTAL PROTEIN 4.8 g/dL (6.3-8.3)
[2016-09-05] MEDS: NORVASC PO SCH (08:14)
[2016-09-05] MEDS: BIDIL PO SCH ×3 (08:14→20:48)
[2016-09-05] MEDS: PREDNISONE PO SCH (08:15)
[2016-09-05] MEDS: NEURONTIN PO SCH ×2 (08:15→20:48)
[2016-09-05] MEDS: BENADRYL PO SCH ×2 (08:15→20:48)
[2016-09-05 08:24] LABS: HYPOCHROM 2+; LYMPHS 52 % (21-51); MONO 6 % (1-9)
[2016-09-05 08:26] LABS: LARGE PLATELETS 1+
--- NOTE | 2016-09-05 13:00 | CONSULTATION ---
DATE OF CONSULTATION: 09/05/2016 REASON FOR CONSULT: Right knee pain. HISTORY OF PRESENT ILLNESS: Ms. Castillo is a 61-year-old female with a past medical history of peripheral artery disease. She is status post left and right below the knee amputations. She has a history of diabetes, hypertension, hyperlipidemia and bipolar disease as well as diverticulitis. The patient was brought to the emergency department after having rigors and breaking out blisters on her body. She had some intense itching as well. She also took a fall about a week ago complaining of pain in the right knee. X-rays were obtained showing possible loose hardware and we were asked to further evaluate the patient. PAST MEDICAL HISTORY: 1. Asthma. 2. Hyperlipidemia. 3. Psychotic illness. SURGICAL HISTORY: 1. Bilateral yjyvx-qsz-aufy amputation. 2. Exploratory laparotomy. 3. Hysterectomy. 4. Right total knee replacement in the past. SOCIAL HISTORY: She lives at home. Denies using tobacco or alcohol. FAMILY HISTORY: Noncontributory. REVIEW OF SYSTEMS: Ten point review of systems performed. The patient answered negative in all areas except for her right knee pain. PHYSICAL EXAMINATION: A physical examination performed on the patient reveals pain in the medial and lateral portions of the right knee and also noted that the patient is a bilateral below-the- knee amputee. The patient has good sensation to dull touch. There is no bruising or erythema noted. IMAGING STUDIES: X-rays obtained of the of Ms. Castillo' right knee reveals hilum some soft tissue edema at the lateral aspect of the right knee. There is a fragment of bone that shows up there. It also looks like there is some loosening in the femoral hardware component. This appears stable. IMPRESSION: The patient has a periprosthetic fracture which is stable at the right total knee in which appears some loosening of the femoral component of the right knee. PLAN: At this point, we will proceed with nonsurgical treatment of the fracture. The patient is nonambulatory, and we would like to have her follow up with Dr. Orozco in about 2 weeks. We can assist with management of pain control as necessary, but we would like to have her followup in 2 weeks for x-rays. Dictated by LARISSA Kelly for Zhen Orozco MD cc: LARISSA Kelly, MD
--- NOTE | 2016-09-05 14:25 | Diag Imaging Result Document ---
PROCEDURE NAME: MRI UPPER EXT W/WO CONT-RIGHT - 09/02/2016 MRI OF THE RIGHT WRIST WITH AND WITHOUT GADOLINIUM: COMPARISON: There are no plain radiographs available for comparison. FINDINGS: There are some subchondral cysts present particularly in the heads of the metacarpals which suggests arthritic change. No evidence of bone marrow edema is present in the visualized portions of the radius, ulna, or carpal bones. There is some subcutaneous edema dorsally over the metacarpals extending over the carpal region. There is also some apparent edema in the thenar region also in the subcutaneous fat. Some edema extends into the dewitt fascia region on the lateral aspect. There is no evidence of significant contrast enhancement. IMPRESSION: No evidence of osteomyelitis. Apparent arthritic changes in the metacarpophalangeal joints. Soft tissue edema in the dorsal subcutaneous tissues as described. The latter may be indicative of cellulitis.
--- NOTE | 2016-09-05 17:36 | PROGRESS NOTE ---
DATE: 09/05/2016 PRESENT ILLNESS: Patient has a strep and methicillin-resistant Staph aureus infection of her right hand and streptococcal bacteremia originating from that hand. MEDICATIONS: The patient is on vancomycin as a single agent. This is day 5 of treatment, since the patient had negative blood cultures. PHYSICAL EXAMINATION: Vital Signs: Temperature is 98.6 degrees, pulse 88, respirations 20, blood pressure 125/57. Generally: This is a fairly healthy-appearing, middle-aged female. Unfortunately, she does have bilateral amputations of her legs. Patient has a PICC in her right arm. The PICC site is not swollen or tender. Lungs: Clear to auscultation. Cardiovascular: Regular heart rate. Abdomen: Soft and nontender. LABORATORY AND X-RAY: Complete blood count for today shows a white count of 11,030, hemoglobin 7.7 and platelet count 205,000. Creatinine 0.4. GFR is greater than 60. MRI of the right hand show cellulitis and arthritis, but no osteomyelitis. ASSESSMENT AND PLAN: 1. The patient has cellulitis and bacteremia. She has a PICC in place. I am going to consult [facility] to complete the patient's antibiotics at home. 2. Comorbidities include peripheral vascular disease. cc: Hernandez Norris MD
--- NOTE | 2016-09-05 17:47 | PROGRESS NOTE ---
DATE: 09/05/2016 PRESENT ILLNESS: The patient has a streptococcal and methicillin-resistant Staph aureus cellulitis of the hand and a streptococcal bacteremia. MEDICATIONS: The patient is receiving vancomycin 1600 mg IV every 24 hours as a single agent. PHYSICAL EXAMINATION: Vital Signs: Temperature is 98.6 degrees, pulse 88, respirations 20, blood pressure 125/57. General: This is a fairly healthy-appearing, middle-aged female. She is in no acute distress. She does have bilateral leg amputations, however. Lungs: Clear to auscultation. Cardiovascular: Regular heart rate. Abdomen: Soft and nontender. Extremities: The patient's right hand is less swollen. It is not draining and it is not erythematous. LABORATORY AND X-RAY: CBC for today shows a white count of 11,030, hemoglobin 7.7, platelet count 205,000. Creatinine is 0.4, GFR is greater than 60. MRI shows cellulitis, but no osteomyelitis of the right hand. ASSESSMENT AND PLAN: 1. Our plan is to send the patient home tomorrow on IV antibiotics. I have put a consult in for [facility] to supply the vancomycin to treat the patient's hand cellulitis and bacteremia. 2. Comorbidity: She has peripheral vascular disease. I will see the patient 2 weeks after discharge. cc: Hernandez Norris MD
[2016-09-05] MEDS: PRAVACHOL PO SCH (20:48)
--- NOTE | 2016-09-05 21:46 | PROGRESS NOTE ---
DATE: 09/05/2016 SUBJECTIVE: Today, Ms. Castillo refers to feel okay; however, she said she has nobody at home, so she cannot be discharged. OBJECTIVE: Vital signs: Blood pressure is 125/57, pulse of 88, respiration is 20, temperature 98.6 degrees. General: Ms. Castillo is a 61-year-old female. She is in bed, not seemingly distress. HEENT: Mucosa is pink and moist. Anicteric. Acyanotic. Chest: Clear. Cardiovascular: Regular rate and rhythm. Abdomen: Soft. Extremities: Bilateral BKA. Patient right knee is slightly swollen. X-ray has been done. SPARES SCHEDULER: Patient is alert and oriented x4. No focal neurological deficit. DIAGNOSTICS: X-ray of the right knee is consistent with stable lucency adjacent to the femoral hardware, component suggesting possible loosening. MRI of the upper extremity was unremarkable except may be indicative of cellulitis. ASSESSMENT: 1. Septic shock on presentation likely due to septic on top of anaphylaxis. 2. Streptococcus equisimilis bacteremia. 3. Staphylococcus aureus and strep cellulitis of the hand, improved. 4. Allergy reaction. Resolved. 5. Hypertension. Controlled. 6. Bipolar disorder. Noted. 7. Chronic pain syndrome. 8. Right knee pain secondary to periprostatic fracture with some loosening. The patient has been evaluated by Orthopedics and they do not plan to do anything surgical. They will follow up with the patient in 2 weeks at clinic. PLAN: In general, Ms. Castillo is clinically stable. She came in septic, bacteremic. Also had severe anaphylaxis which has resolved. She got a PICC line and she is going to be on IV antibiotics which has been dictated by Dr. Norris and will follow up with him. From a medical standpoint, I think she is ready to be discharged today. However, she said there is nobody at home to help her so she cannot be discharged since she is not ambulatory herself, has bilateral above-knee amputation, so she needs total care. We will therefore wait for the family members to come home tomorrow and then discharge her 1st thing in the morning. cc: Jm Bell MD
[2016-09-06] MEDS: MORPHINE IV PRN ×5 (01:12→19:34)
[2016-09-06] MEDS: PRILOSEC PO SCH (06:16)
[2016-09-06] MEDS: VANCOMYCIN 1,800 MG in NS 250 ML IV SCH (09:24)
[2016-09-06] MEDS: NORVASC PO SCH (09:25)
[2016-09-06] MEDS: PREDNISONE PO SCH (09:25)
[2016-09-06] MEDS: NEURONTIN PO SCH ×2 (09:25→21:56)
[2016-09-06] MEDS: BENADRYL PO SCH ×2 (09:25→21:56)
[2016-09-06] MEDS: BIDIL PO SCH ×3 (09:25→21:56)
--- NOTE | 2016-09-06 15:39 | PROGRESS NOTE ---
DATE: 09/06/2016 PRESENT ILLNESS: The patient has a streptococcal bacteremia originating from a streptococcal and methicillin-resistant Staph aureus cellulitis of the right hand. MEDICATIONS: Patient is receiving vancomycin 1600 mg IV daily. PHYSICAL EXAMINATION: Vital Signs: Temperature is 98 degrees, pulse 87, respirations 18, blood pressure 151/67. General: This is a fairly healthy-appearing, middle-aged female. Lungs: Clear to auscultation. Cardiovascular: Heart rate is regular. Extremities: The right hand is much less swollen. Skin is peeling from it, but there is no erythema. Patient does have bilateral amputation of the legs. LABORATORY AND X-RAY: There is no new x-ray for today. The lab shows a CBC with a white count of 11,030, hemoglobin 7.7 and platelet count 205,000. Creatinine is 0.4, GFR is greater than 60. The vancomycin level was low today at 6.1. ASSESSMENT AND PLAN: 1. The plan is to send the patient home today on IV antibiotics. I have requested [facility] to supply the patient with them. I plan to see the patient back in my office in 2 weeks. 2. Patient's comorbidity ability is that she has peripheral vascular disease. cc: Hernandez Norris MD
--- NOTE | 2016-09-06 16:26 | PROGRESS NOTE ---
DATE: 09/06/2016 SUBJECTIVE: Ms. Castillo presented. She is a patient Dr. Gary Calero. Presented on 08/30/2016 with altered mental status beginning the morning of admission. Past medical history of peripheral artery disease, status post left and right AKA secondary to peripheral artery disease, type 2 diabetes. Has a history of hypertension, hyperlipidemia, bipolar disease, and diverticulosis. The patient was brought in and had rigors, broke out in blisters on her hands and over her body, preceded by intense itching the day before, significantly confused. She was able to communicate her name and answer simple questions. They felt she was in septicemia and possible occult colitis. I put her on vancomycin and Maxipime for broad-spectrum coverage. She had a skin infection on her hands from MRSA and continued with vancomycin. History of peripheral artery disease, thrombocytopenia, diabetes mellitus type 2, hypertension, bipolar disease. Today the patient appears comfortable. OBJECTIVE: Vital signs: Temperature 98, pulse 87, respirations 18, blood pressure 151/67. HEENT: Pupils are equal and round. Neck: CVP less than 6 cm. Lungs: Clear in all lung love. Cardiovascular: Regular rhythm and rate without murmur or S3. : Good urine output. LAB: From yesterday, white count 11,030, hematocrit was 24, platelet count 205,000. Chemistry: Sodium 144, potassium 3.2, chloride 105, bicarb 31, BUN 11, creatinine 0.4. Liver functions unremarkable. Albumin 2.1. ASSESSMENT: 1. Staphylococcal bacteremia originating from Staphylococcal and methicillin-resistant Staph aureus cellulitis of the right hand. Continue present antibiotics. Seems to be improving. 2. Streptococcus equisimilis bacteremia. 3. Staphylococcus aureus and strep cellulitis of the hand. Improved. 4. Allergic reaction, resolved. 5. Hypertension. 6. Bipolar disease. 7. Chronic pain syndrome. 8. Right knee pain secondary of periprosthetic fracture and some loosening. The patient has been evaluated by orthopedics. PLAN: Appears to be doing better. She got a PICC line. Going to stay on IV antibiotics. Followed by Dr. Norris. There is nobody at home to help her and so we will have to get discharge plans arranged. She has bilateral [id number] amputations so she needs total care. So I will wait on placement options. REVIEW OF ORDERS: I do not see any changes at this time this. cc: Demetrius Lee MD
[2016-09-06] MEDS: PRAVACHOL PO SCH (21:56)
[2016-09-07] MEDS: MORPHINE IV PRN ×5 (00:12→20:24)
[2016-09-07] MEDS: PRILOSEC PO SCH ×2 (05:35→06:31)
[2016-09-07] MEDS: VANCOMYCIN 1,800 MG in NS 250 ML IV SCH (08:08)
[2016-09-07] MEDS: BIDIL PO SCH ×3 (08:09→20:25)
[2016-09-07] MEDS: BENADRYL PO SCH ×2 (08:09→20:25)
[2016-09-07] MEDS: PREDNISONE PO SCH (08:09)
[2016-09-07] MEDS: NORVASC PO SCH (08:09)
[2016-09-07] MEDS: NEURONTIN PO SCH ×2 (08:09→20:25)
[2016-09-07] MEDS ORDERED: MILK OF MAGNESIA PO ONE (14:18)
[2016-09-07] MEDS ORDERED: DULCOLAX PR ONE (15:15)
--- NOTE | 2016-09-07 17:30 | PROGRESS NOTE ---
DATE: 09/07/2016 PRESENT ILLNESS: Patient has a streptococcal methicillin-resistant cellulitis of the right hand with a resulting streptococcal bacteremia. MEDICATIONS: Patient is receiving vancomycin. This is the 8th day of treatment with vancomycin. PHYSICAL EXAMINATION: Vital Signs: Temperature is 98.3 degrees, pulse 91, respirations 20, blood pressure 143/67. General: This is a fairly healthy-appearing, middle-aged female. She is in no acute distress. Cardiovascular: Her heart rate is regular. Lungs: Clear to auscultation. Abdomen: Soft and nontender. Extremities: The right hand continues to be less swollen. It is not erythematous. Some skin is peeling from it. LABORATORY AND X-RAY: There is no new lab or x-ray. ASSESSMENT AND PLAN: 1. The patient has a cellulitis with resulting bacteremia. The plan will be to continue vancomycin. 2. Comorbidity in this patient is mainly peripheral vascular disease. cc: Hernandez Norris MD
[2016-09-07] MEDS: PRAVACHOL PO SCH (20:25)
--- NOTE | 2016-09-07 23:54 | PROGRESS NOTE ---
DATE: 09/07/2016 SUBJECTIVE: Ms. Castillo is feeling much better. She is actually talking about going home. She feels stronger. OBJECTIVE: Vital Signs: Temperature 98.4 degrees, pulse 86, respirations 16, blood pressure 140/57. Lungs: Clear in all lung love. Cardiovascular: Regular rhythm and rate, without murmur or S3. Abdomen: Soft. Skin: Warm and dry. LABORATORY STUDIES: Urine output 2600 mL. Labs reviewed from the 8th. ASSESSMENT AND PLAN: 1. Streptococcal methicillin-resistant cellulitis to right hand, resulting in a streptococcal bacteremia. The patient is doing much better on her 8th day of treatment with vancomycin, so continue the vancomycin. I think we will probably set her up for antibiotics at home. 2. The patient has peripheral vascular disease. Aware. She states she has not had a bowel movement. We tried some milk of magnesia. 3. Hypertension. 4. Bipolar disease. 5. Chronic pain syndrome. She has had some right knee pain due to a periprosthetic fracture, some loosening. The patient evaluated by Orthopedics, said she can go home tomorrow. cc: Demetrius Lee MD
[2016-09-08] MEDS: MORPHINE IV PRN ×4 (00:44→13:47)
[2016-09-08] MEDS: PRILOSEC PO SCH (07:43)
[2016-09-08] MEDS: BENADRYL PO SCH (08:31)
[2016-09-08] MEDS: NEURONTIN PO SCH (08:31)
[2016-09-08] MEDS: BIDIL PO SCH ×2 (08:31→14:35)
[2016-09-08] MEDS: NORVASC PO SCH (08:31)
[2016-09-08] MEDS: PREDNISONE PO SCH (08:31)
[2016-09-08] MEDS: VANCOMYCIN 1,800 MG in NS 250 ML IV SCH (09:16)
--- NOTE | 2016-09-08 10:06 | DISCHARGE SUMMARY ---
ADMISSION DATE: 08/30/2016 DISCHARGE DATE: 09/08/2016 HOSPITAL COURSE: Ms. Castillo is a 61-year-old who was admitted on 08/30/2016. She presented with altered mental status. She is followed by Dr. Gary Calero. She has a history of peripheral vascular disease status post left and right [id number] amputation. Peripheral artery disease. Diabetes mellitus type 2. History of hypertension, hyperlipidemia, bipolar disease, diverticulitis. She was brought in by family members because she had been having rigors and broke out in blisters in her hands and body. This was received by intense itching the day before. I tried to communicate to the patient, but she was confused at the time. She was treated with antibiotics. She was treated for septicemia, and she showed steady improvement. Skin infection in her hands improved. She was put on vancomycin. History of diabetes mellitus, type 2. Sugars have been followed by Dr. Hernandez Norris. The patient has cellulitis bacteremia. We plan to continue vancomycin. We will set her up as an outpatient to continue to get IV vancomycin. This is day 9. Grew out Staphylococcus aureus in the right hand and Strep dysgalactiae from one of the blood cultures. So, the plan is for further antibiotics followed by Dr. Norris. See if we can send her home. She is requesting to go home today. DISCHARGE MEDICATIONS: 1. Norvasc 10 mg a day. 2. Neurontin 300 mg b.i.d. 3. Isosorbide dinitrate/hydralazine combination. She takes b.i.d. and then IV vancomycin, prednisone 20 mg a day. 4. Pravastatin 80 mg at bedtime. cc: Demetrius Lee MD
[2016-09-08 14:05] VITALS: BP 156/58
--- NOTE | 2016-09-08 14:38 | PROGRESS NOTE ---
DATE: 09/08/2016 PRESENT ILLNESS: The patient has a streptococcal and methicillin-resistant Staphylococcus aureus infection of her right hand with a resulting streptococcal bacteremia. MEDICATIONS: This is the 9th day of treatment with vancomycin for her infection. PHYSICAL EXAMINATION: Vital Signs: Temperature is 98.1 degrees, pulse 93, respirations 19, blood pressure 156/58. General: This is a fairly healthy-appearing, middle-aged female. She is in no acute distress. Lungs: Clear to auscultation. Cardiovascular: Heart rate is regular. Abdomen: Soft and nontender. Extremities: The right hand continues to be less swollen. Patient has a PICC in place. The site is not erythematous or draining. LABORATORY AND X-RAY: There is no new laboratory or x-ray. ASSESSMENT AND PLAN: Patient has cellulitis with bacteremia. The plan is to continue vancomycin for a total of 2 weeks. COMORBIDITY: Peripheral vascular disease. cc: Hernandez Norris MD
--- NOTE | 2016-09-14 01:43 | PROVIDER DOCUMENTATION ---
This chart was entered by Lisa Lee Scribe, acting as scribe for Aristeo Hitchcock CRNP. HPI-General Adult - General Chief Complaint: General Adult Stated Complaint: POSS CONSTIPATION/GENERAL Time Seen by Provider: 08/29/16 18:44 Source: family Allergies/Adverse Reactions: Patient Allergies Allergy/AdvReac Type Severity Reaction Status Date / Time amoxicillin Allergy Unknown RASH Verified 06/27/16 10:25 Home Medications: Home Medication List Medication Instructions Recorded Confirmed Last Taken Type Amlodipine [Norvasc] 5 mg PO DAILY 01/25/16 08/29/16 01/28/16 18:00 History Divalproex Sodium 125 mg PO DAILY 01/25/16 08/29/16 01/28/16 18:00 History Fenofibrate [Tricor] 145 mg PO QHS 01/25/16 08/29/16 01/28/16 18:00 History Gabapentin 300 mg PO BID 01/25/16 08/29/16 01/28/16 18:00 History Omeprazole 20 mg PO DAILY 08/29/16 08/29/16 Unknown History Oxycodone HCl/Acetaminophen 1 each PO TID 08/29/16 08/29/16 Unknown History [Endocet 7.5-325 mg Tablet] Pravastatin Sodium [Pravachol] 80 mg PO HS 08/29/16 08/29/16 Unknown History Zolpidem [Ambien] 5 mg PO QHS 08/29/16 08/29/16 Unknown History - History of Present Illness -Gen Adult Nature of Presenting Problems: Family states that pt has not had a bowel movement x1.5 weeks. Pt has also had foul smelling urine x1 week. Yesterday pt began scratching at skin but it was worse today. Family states that this morning pt was able to carry on a conversation but she is now altered and hallucinating and screaming in pain holding ABD. Pt had a fever of 103 on arrival. Location of Pain/Injury: reports: abdomen Pain Radiation: reports: no radiation Quality of Pain: reports: aching Severity: reports: moderate Onset/Duration: reports: last week Timing: reports: still present Associated Symptoms: reports: constipation, genitourinary problems, rash Similar Symptoms Previously?: No Recently seen or treated by another doctor?: No Review of Systems - Adult - REVIEW OF SYSTEMS - ADULT Constitutional: reports: fever. denies: chills Eyes: reports: no symptoms reported Ears, Nose, Mouth & Throat: reports: no symptoms reported Cardiovascular: reports: no symptoms reported Respiratory: denies: cough, shortness of breath Gastrointestinal: reports: abdominal pain, constipation Genitourinary: reports: other (foul smelling urine). denies: hematuria Musculoskeletal: reports: no symptoms reported Integumentary: reports: itching. denies: skin thickening Neurological: reports: no symptoms reported Psychiatric: reports: no symptoms reported Endocrine: reports: no symptoms reported Hematologic/Lymphatic: reports: no symptoms reported Allergic/Immunologic: reports: no symptoms reported All Other Systems: Reviewed and Negative Past History - Adult - PAST MEDICAL HISTORY-ADULT Review of Records: reports: Nursing Assessment Review, Medications Reviewed Major Childhood Illnesses: reports: denies history Cardiovascular: reports: CAD, HTN, hyperlipidemia Respiratory: reports: asthma, sleep apnea Gastrointestinal: reports: denies history Obstetrical/Gynecological: reports: denies history Genitourinary: reports: denies history Musculoskeletal: reports: denies history Neurological: reports: denies history Psychiatric: reports: psychiatric problems Other Conditions: reports: other (atherosclerosis) - PRIOR SURGERIES/PROCEDURES Surgical/Procedure History: reports: hysterectomy, other (bilateral BKA, right big toe amputation) - IMMUNIZATION STATUS Childhood Immunizations: See Nurse Assessment Flu Vaccine: See Nurse Assessment - FAMILY HISTORY Family History: reviewed, not pertinent - SOCIAL HISTORY Smoking: non-smoker Physical Exam-General - PHYSICAL EXAM-ADULT Initial Vital Signs Reviewed: Yes - CONSTITUTIONAL General Appearance: other (confused, attempting to get out of wheelchair, not following commands) - HEAD, EARS, NOSE, MOUTH & THROAT HENMT: normocephalic/atraumatic - NECK Neck: non-tender, full range of motion, supple, normal inspection - RESPIRATORY Respiratory: lungs clear, normal breath sounds - CARDIOVASCULAR Cardiovascular: bradycardia - GASTROINTESTINAL (ABDOMEN) Abdominal Exam: normal bowel sounds, non tender, soft, no organomegaly, no pulsatile mass - LYMPHATIC Lymphatic: no adenopathy - MUSCULOSKELETAL Back Exam: normal inspection, no CVA tenderness, no vertebral tenderness Extremity: normal inspection, no calf tenderness, normal capillary refill, pelvis stable, other (bilateral BKA) - SKIN Integumentary: warm/dry, rash (dry skin, pus filled blisters to bilateral hands and wrist) - NEUROLOGIC Neurologic: grossly normal - PSYCHIATRIC Psych/Mental Status: other (confused, not following commands) Progress - PLAN OF CARE/RESULTS Progress/Plan/Lab Results: Vital Signs - 8 hr 08/29/16 16:28 Temperature 103.0 F H Pulse Rate 44 L Respiratory Rate 18 Blood Pressure 116/89 O2 Sat by Pulse Oximetry 100 Result Diagrams: 09/05/16 06:40 09/08/16 15:21 - EKG 1 Time of EKG reading by physician:: 21:23 EKG Read and Signed by:: Evan Kelley EKG Interpretation (*Must complete 3 of following elements*): Abnormal Rate: 147 Rhythm: sinus tachycardia ST Wave: non-specific ST changes (ST & T wave abnormality, consider inferolateral ischemia) - XRAY 1 XRAY Study: Abdomen Impression: See EMR Report (Right Middle lobe infiltrate per Dr. Kelley.) 2 XRAY Study: Abdomen Impression: See EMR Report (Constipation per dr. kelley.) - CT/MRI 1 CT Study: Angiogram Impression: Normal (Motion artiface limits the study. No definate PE is identified: Dr. Velázquez([facility])) 2 CT Study: Head Impression: Normal (No acute intracranial abnormality is identified:Dr. Velázquez( [facility])) - CONSULTS/PCP/HOSPITALIST Notification #1 *Consult/PCP/Hospitalist*: Dr. Shelby(hospitalist) Time Discussed: 23:32 Consult Disposition: Admit Departure - Departure Time of Disposition Decision: 23:33 DIAGNOSIS: Pneumonia, Sepsis Disposition: ADMITTED INPATIENT 09 Certified Medical Emergency: Emergent Condition: Critical - Critical Care Note This patient required my direct & personal management of CC.: Yes Total Time (mins): 45 Critical Care Statement: This patient required my direct personal management to treat or rule out processes, the absence of which, could potentiallly result in sudden, clinically significant life or limb threatening deterioration. Attestation - Physician/ JOLLY Attestation Patient care was provided by Advanced Practice Provider:: Yes Advanced Practice Provider:: Aristeo Hitchcock Advanced Practice Provider documentation review:: The Mid-level provider documentation, treatment plan and medical decision making was reviewed by the physician who agrees with all treatment and medical decision making by the [facility]. The physician spent face to face time with patient:: Yes (Dr. Kelley directly evaluated patient.) Advanced Practice Provider documentation review:: The physician spent face to face time with this patient and agrees with all MLP documentation, treatment, and medical decision making by the MLP. See provider notes for further information. This chart was documented by the indicated scribe, (Lisa Lee Scribe) and accurately reflects the services I performed and decisions made by me, Aristeo Hitchcock CRNP, as attested by the provider's signature.
--- NOTE | 2016-10-12 19:19 | PROGRESS NOTE ---
DATE: 10/12/2016 PRESENT ILLNESS: The patient has an infected right total knee arthroplasty. Fluid was drawn which showed evidence of infection involving the knee prosthesis. I have aspirated fluid from her leg also and it was sanguinopurulent in nature. It should be noted also that the patient's urinalysis indicates that she has a urinary tract infection as well. MEDICATIONS: Today the patient was started on a combination of meropenem and vancomycin pending culture results. PHYSICAL EXAMINATION: Vital Signs: Temperature is 99.6 degrees. Pulse 102. Respirations 20, blood pressure 156/69. General: This is a chronically an ill-appearing middle- aged female. She is in no acute distress. Lungs: Clear to auscultation. Cardiovascular: Regular heart rate. Abdomen: Soft and nontender. Extremities: Patient has bilateral below the knee amputations. The right leg felt fluctuant and was swollen as well as tender. After cleaning the leg with alcohol, I withdrew fluid. It was sanguinopurulent in nature. This has been sent for culture. LABORATORY AND X-RAY: CBC shows a white count of 21,170, hemoglobin 11.9, platelet count 193,000. Creatinine 0.4, GFR is greater than 60. Liver function studies are normal. Blood and urine cultures are pending. Urinalysis showed small amount of white cells and 1+ bacteria. The patient had a chest x-ray performed and there was no pneumonia or effusions noted. Patient also had an x- ray performed of her right knee and it showed the gilwl-lsg-bkfi amputation and a chronic compression fracture of the femoral shaft into the condyles. ASSESSMENT AND PLAN: The patient has cellulitis, infection of her leg possibly with an associated bacteremia. The patient's main comorbidity is peripheral vascular disease. cc: MD GINNY Walter
== END 2016-09-08 16:03 | disposition home health service (06) ==
LOC: ED 16:20 → ICU 08-30 02:35 → SUATTDRO 08-30 02:40 → ICU 08-30 02:40 → 3N 09-02 15:18
PROVIDERS: ATTEND Emergency Medicine

== ENCOUNTER 2016-10-12 10:44 | Inpatient (IN) ==
[2016-10-12] MEDS ORDERED: NS 1,000 ML IV ONE (11:52)
[2016-10-12 12:13] LABS: BASO% 0.1 % (0.0-0.8); HEMATOCRIT 37.1 % (37.0-47.0); HEMOGLOBIN 11.9 g/dL (12.0-16.0); IMM GRAN# 0.07 X1000 (0.0-0.04); IMM GRAN% 0.3 % (0.0-0.5); LYMPH# 2.41 X1000 (1.2-3.4); LYMPH% 11.4 % (20.5-51.1); MANUAL DIFF NEEDED? YES; MCHC 32.1 g/dL (33-37); MCV 90.3 FL (81-99); MONO# 2.77 X1000 (0.11-0.59); MONO% 13.1 % (1.7-9.3); MPV 12.1 FL (7.4-10.4); NEUT% 75.1 % (42.2-75.2); PLT 193 X1000 (130-400); RBC 4.11 XMIL (4.2-5.4)
[2016-10-12] MEDS ORDERED: MORPHINE IV ONE (12:27)
[2016-10-12] MEDS ORDERED: ZOFRAN IV ONE (12:27)
[2016-10-12] MEDS ORDERED: VANCOMYCIN 1 GM/NS 1 GM/250 ML IVPB IV ONE (12:28)
[2016-10-12 12:36] LABS: LYMPHS 19 % (21-51); MONO 6 % (1-9)
--- NOTE | 2016-10-12 12:36 | Diag Imaging Result Doc PS360 ---
EXAM: CHEST-PORTABLE HISTORY: Cough TECHNIQUE: Portable upright COMPARISON: 08/30/2016 FINDINGS: The lungs are well expanded. The heart is mildly prominent. The vessels are not distended. No pneumonia. No effusions identified. IMPRESSION: Stable chest. Electronically signed by Griffin Almodovar 10/12/2016 12:34 PM
[2016-10-12 12:45] LABS: AGAP 16; ALBUMIN 3.8 g/dL (3.5-5.0); ALKALINE PHOSPHATASE 69 U/L (32-104); BUN 10 mg/dL (8-22); CALCIUM 8.8 mg/dL (8.8-10.2); CHLORIDE 96 mmol/L (98-107); COSMO 267; GOT 14 U/L (10-30); GPT < 5 U/L (10-36); POTASSIUM 3.4 mmol/L (3.5-5.1); SODIUM 134 mmol/L (136-145); TCO2 22 mmol/L (25-35); TOTAL BILIRUBIN 0.62 mg/dL (0.20-1.00); TOTAL PROTEIN 7.4 g/dL (6.3-8.3)
--- NOTE | 2016-10-12 13:26 | Diag Imaging Result Doc PS360 ---
EXAM: KNEE 3 VIEWS RIGHT HISTORY: Pain TECHNIQUE: COMPARISON: 09/14/2016 FINDINGS: There has been a [id number] amputation. Orthopedic replacement of the knee. No change in the position of the femoral component or tibial component. There is collapse of the femoral condyles with compression of the shaft into the femoral condyles. Prominent atherosclerosis. IMPRESSION: Below the knee amputation with prior orthopedic replacement of the knee and a chronic compression fracture of the femoral shaft into the condyles. Electronically signed by Griffin Almodovar 10/12/2016 1:24 PM
--- NOTE | 2016-10-12 13:34 | PROVIDER DOCUMENTATION ---
This chart was entered by Sarai Foley Scribe, acting as scribe for Magan Melissa MD. HPI-Fever - General Chief Complaint: Possible Sepsis-D Stated Complaint: CONFUSED Time Seen by Provider: 10/12/16 11:34 Source: patient, family (son) Allergies/Adverse Reactions: Patient Allergies Allergy/AdvReac Type Severity Reaction Status Date / Time amoxicillin Allergy Unknown RASH Verified 10/12/16 12:09 Home Medications: Home Medication List Medication Instructions Recorded Confirmed Last Taken Type Amlodipine [Norvasc] 5 mg PO DAILY 01/25/16 10/12/16 01/28/16 18:00 History Divalproex Sodium 125 mg PO DAILY 01/25/16 10/12/16 01/28/16 18:00 History Fenofibrate [Tricor] 145 mg PO QHS 01/25/16 10/12/16 01/28/16 18:00 History Gabapentin 300 mg PO BID 01/25/16 10/12/16 01/28/16 18:00 History Oxycodone HCl/Acetaminophen 1 each PO TID 08/29/16 10/12/16 Unknown History [Endocet 7.5-325 mg Tablet] Pravastatin Sodium [Pravachol] 80 mg PO HS 08/29/16 10/12/16 10/11/16 History - History of Present Illness-Fever Nature of Presenting Problem: 61 y/o F presents to ED cc edema and pain. Pt has bilat amputee. Pt amputation right at the knee. Pt complains of R leg swelling and pain of a 10/10. Pt is very tearful and crying on exam. Pt was treated in hospital for MRSA over a month ago . Son states the swelling has been off and on . Pain just increasingly worse today. Pt is alert. Denies fever/ CP/SOB. Amputation happened a year and half ago. Fever Severity/Quality: reports: no fever Onset/Duration: reports: gradual Timing: reports: still present Severity: reports: mild Context: reports: other (R leg swelling.) Recent Illness?: reports: MRSA (per family) Cognitive Baseline: alert, oriented x3 Modifying Factors: improves with: nothing Associated Symptoms: reports: other (swelling and pain in R leg.). denies: chest pain, cough, diaphoresis, fever/chills, genitourinary problems, headaches , sinus congestion/drainage, nausea, seizure, shortness of breath, swelling/ mass in abdomen, vomiting, weakness Similar Symptoms Previously?: No Recently seen or treated by another doctor?: Yes Review of Systems - Adult - REVIEW OF SYSTEMS - ADULT Constitutional: denies: chills, fever Eyes: denies: discharge, dry eyes, blurred vision, double vision Ears, Nose, Mouth & Throat: denies: ear pain, nose pain Cardiovascular: denies: chest pain, irregular heart rate, orthopnea, palpitations Respiratory: denies: cough, pleurisy, shortness of breath, wheezing Gastrointestinal: denies: abdominal pain, diarrhea, frequent heartburn, nausea, rectal bleeding, vomiting Genitourinary: denies: discharge, frequency, hematuria, hesitency Musculoskeletal: reports: other (R leg edema and swelling). denies: bone pain, back pain Neurological: denies: dizziness/vertigo, headache/migraines, seizure, slurred speech Past History - Adult - PAST MEDICAL HISTORY-ADULT Review of Records: reports: Old Records Reviewed, Nursing Assessment Review Major Childhood Illnesses: reports: denies history Cardiovascular: reports: CAD, HTN, hyperlipidemia Respiratory: reports: asthma, sleep apnea Gastrointestinal: reports: denies history Obstetrical/Gynecological: reports: denies history Genitourinary: reports: denies history Musculoskeletal: reports: denies history Neurological: reports: denies history Psychiatric: reports: psychiatric problems Endocrine/Immune: reports: HIV/AIDS Other Conditions: reports: other (atherosclerosis) - PRIOR SURGERIES/PROCEDURES Surgical/Procedure History: reports: hysterectomy, other (bilateral BKA, right big toe amputation) - IMMUNIZATION STATUS Childhood Immunizations: See Nurse Assessment Flu Vaccine: See Nurse Assessment - FAMILY HISTORY Family History: reviewed, not pertinent - SOCIAL HISTORY Smoking: greater than 1 pack/day Provider spent 3-5 mins advising pt. on dangers of tobacco.: Discussed manners to quit use, and f/u contacts for add'l counseling. Substance Use: denies Physical Exam-General - PHYSICAL EXAM-ADULT Initial Vital Signs Reviewed: Yes - CONSTITUTIONAL General Appearance: alert, no apparent distress, other (crying) - EYES Eyes: pink conjunctivae - HEAD, EARS, NOSE, MOUTH & THROAT HENMT: normocephalic/atraumatic, moist mucous membranes, normal ENT inspection - NECK Neck: non-tender - RESPIRATORY Respiratory: chest non-tender, lungs clear, normal breath sounds - CARDIOVASCULAR Cardiovascular: normal peripheral pulses, tachycardia - GASTROINTESTINAL (ABDOMEN) Abdominal Exam: normal bowel sounds, non tender, soft - MUSCULOSKELETAL Back Exam: no CVA tenderness, no vertebral tenderness Extremity: tenderness (to R amputated leg), other (edema) - SKIN Integumentary: normal color, normal turgor, warm/dry - NEUROLOGIC Neurologic: grossly normal, no motor/sensory deficits - PSYCHIATRIC Psych/Mental Status: oriented x 3, tearful Progress - PLAN OF CARE/RESULTS Progress/Plan/Lab Results: Vital Signs - 8 hr 10/12/16 11:10 Temperature 99.3 F Pulse Rate 100 H Respiratory Rate 22 Blood Pressure 166/85 O2 Sat by Pulse Oximetry 98 Laboratory Results - last 24 hr 10/12/16 10/12/16 10/12/16 11:20 11:20 11:20 WBC 21.17 H RBC 4.11 L Hgb 11.9 L Hct 37.1 MCV 90.3 MCH 29.0 MCHC 32.1 L RDW Std Deviation 15.6 H Plt Count 193 MPV 12.1 H Immature Gran % (Auto) 0.3 Neut % (Auto) 75.1 Lymph % (Auto) 11.4 L Cedar % (Auto) 13.1 H Eos % (Auto) 0.0 Baso % (Auto) 0.1 Immature Gran # (Auto) 0.07 H Neut # (Auto) 15.90 H Lymph # (Auto) 2.41 Cedar # (Auto) 2.77 H Eos # (Auto) 0.00 Baso # (Auto) 0.02 Segmented Neutrophils 75 Lymphocytes 19 L Monocytes 6 Sodium 134 L Potassium 3.4 L Chloride 96 L Carbon Dioxide 22 L Anion Gap 16 BUN 10 Creatinine 0.4 L Estimated GFR/1.73 m2 > 60 BUN/Creatinine Ratio 25 Glucose 89 Calculated Osmolality 267 Uric Acid Calcium 8.8 Total Bilirubin 0.62 AST 14 ALT < 5 L Alkaline Phosphatase 69 Total Protein 7.4 Albumin 3.8 Globulin 3.6 Albumin/Globulin Ratio 1.1 Plasma Lactate 1.4 10/12/16 11:20 WBC RBC Hgb Hct MCV MCH MCHC RDW Std Deviation Plt Count MPV Immature Gran % (Auto) Neut % (Auto) Lymph % (Auto) Cedar % (Auto) Eos % (Auto) Baso % (Auto) Immature Gran # (Auto) Neut # (Auto) Lymph # (Auto) Cedar # (Auto) Eos # (Auto) Baso # (Auto) Segmented Neutrophils Lymphocytes Monocytes Sodium Potassium Chloride Carbon Dioxide Anion Gap BUN Creatinine Estimated GFR/1.73 m2 BUN/Creatinine Ratio Glucose Calculated Osmolality Uric Acid 2.9 Calcium Total Bilirubin AST ALT Alkaline Phosphatase Total Protein Albumin Globulin Albumin/Globulin Ratio Plasma Lactate Orders Category Date Time Status CHEST-PORTABLE [RAD] Stat Exams 10/12/16 11:57 Completed KNEE 3 VIEWS RIGHT [RAD] Stat Exams 10/12/16 13:07 Completed BLOOD CULTURE [BLDCUL] Stat Lab 10/12/16 12:32 Received CBC WITH DIFF [HEME] Stat Lab 10/12/16 11:20 Completed COMPREHENSIVE METABOLIC PANEL [CHEM] Stat Lab 10/12/16 11:20 Completed LACTATE, PLASMA [CHEM] Stat Lab 10/12/16 11:20 Completed UA NIMS W/REFLEX CULT [URINALYSIS] Stat Lab 10/12/16 11:57 Uncollected UDS [URINE DRUG SCREEN] Stat Lab 10/12/16 11:57 Uncollected URIC ACID [CHEM] Stat Lab 10/12/16 11:20 Completed 0.9% Sodium Chloride Inj [Ns] 1,000 ml Med 10/12/16 11:52 Discontinued IV 999 mls/hr Morphine Med 10/12/16 12:27 Discontinued 4 mg IV NOW ONE Ondansetron [Zofran] Med 10/12/16 12:27 Discontinued 4 mg IV NOW ONE Vancomycin 1 gm/Ns Med 10/12/16 12:28 Discontinued 1 gm in 250 ml IV NOW PLAN: LABS , MONITOR PT, TREAT PAIN Result Diagrams: 10/12/16 11:20 10/12/16 11:20 - CONSULTS/PCP/HOSPITALIST Notification #1 *Consult/PCP/Hospitalist*: Admit to Hospitalist- Dr. Ogden Time Discussed: 13:08 Consult Disposition: Will see in ED, Admit Departure - Departure Date of Disposition Decision: 10/12/16 Time of Disposition Decision: 13:08 DIAGNOSIS: Cellulitis Disposition: ADMITTED INPATIENT 09 Certified Medical Emergency: Emergent Condition: Stable Referrals and Follow-Ups: Gary Calero [Primary Care Provider] - - Critical Care Note This patient required my direct & personal management of CC.: No This chart was documented by the indicated scribe, (Sarai Foley Scribe) and accurately reflects the services I performed and decisions made by me, Magan Melissa MD, as attested by the provider's signature.
[2016-10-12] MEDS ORDERED: MERREM 1 GM in NS 50 ML IV ONE (14:05)
--- NOTE | 2016-10-12 14:59 | Diag Imaging Result Doc PS360 ---
EXAM: HEAD W/O CONTRAST HISTORY: ams TECHNIQUE: Dose reduction protocol COMPARISON: 08/29/2016 FINDINGS: No parenchymal hemorrhage. No epidural or subdural hematoma. No subarachnoid hemorrhage. No mass identified on this noncontrasted exam. No hydrocephalus. No sinus opacification. IMPRESSION: 1.No hemorrhage. 2.Interval improvement in sinusitis Electronically signed by Griffin Almodovar 10/12/2016 2:57 PM
--- NOTE | 2016-10-12 15:03 | HISTORY AND PHYSICAL ---
PRIMARY CARE PROVIDER: Dr. Gary Calero. CHIEF COMPLAINT: Right knee pain. HISTORY OF PRESENT ILLNESS: Ms. Castlilo is a 61-year-old female, well known to our service. She has a history of severe peripheral vascular disease, status post bilateral BKA's with subsequent cellulitis of the right knee stump. She was actually discharged from our service around a month ago, which she was here for bacteremia and cellulitis of the hands. She comes in today for worsening right knee pain around the area of her right BKA. This has also had swellings, erythema and increased temperature to touch. She went to her PCP, who apparently did a knee joint aspiration. She was subsequently sent to Dr. Norris' office, who examined the patient and decided to send her to the ER because she has what appears to be right knee cellulitis and some altered mental status. The patient indeed is confused, she is unable to answer orientation questions. However, she follows commands without focal deficits. Her lab work and vital signs are consistent with sepsis. Blood cultures have been obtained and broad- spectrum antibiotics have been initiated. We are now going to admit her for further treatment and evaluation. PAST MEDICAL HISTORY: 1. Severe peripheral arterial disease status post bilateral niofj-cwi-fdyc amputations. 2. Hypertension. 3. Asthma. 4. Bipolar disorder. 5. GERD. 6. Hyperlipidemia. 7. Peripheral neuropathy. 8. Chronic pain. PAST SURGICAL HISTORY: She has had bilateral BKA's and, prior to that, she has had other amputations of the lower extremities. She has also had exploratory laparotomy, hysterectomy, and total knee replacement. SOCIAL HISTORY: Patient denies tobacco, alcohol or drug use. FAMILY HISTORY: Noncontributory. REVIEW OF SYSTEMS: Difficult to obtain secondary to the neuro status, but she denies any other complaints at this time. ALLERGIES: Amoxicillin. HOME MEDICATIONS: 1. Norvasc 5 mg daily. 2. Divalproex sodium 125 mg p.o. daily. 3. Tricor 145 mg p.o. at bedtime. 4. Neurontin 300 mg p.o. b.i.d. 5. [place] as needed for pain. 6. Pravachol 80 mg p.o. at bedtime. PHYSICAL EXAMINATION: VITAL SIGNS: Blood pressure is 166/85, heart rate is 100, respiratory rate 22, O2 saturation 98% on room air, temperature is 99.3 degrees. GENERAL: This is a chronically ill-appearing, 61-year-old female, lying in hospital bed in no acute distress. NEUROLOGIC: The patient is confused. She is able to tell me her name. She does follow commands without focal deficits. Obviously, her lower extremity exam is limited secondary to BKA's, but she is able to move those extremities. HEENT: Head atraumatic and normocephalic. Her pupils are equal, round, and reactive to light. Oral mucosa is dry. NECK: Trachea is midline. There is no JVD. CHEST: Clear to auscultation bilaterally. CV: Regular rate and rhythm. S1, S2 is noted. No murmurs, gallops, clicks, or rubs. GI: Soft, nondistended, nontender. Bowel sounds positive. EXTREMITIES: Right BKA mildly edematous and warm to touch. Left BKA without edema or erythema. Pulses and neurovascular are intact bilaterally. DIAGNOSTIC DATA: Knee x-ray shows bnoyy-dvm-dgrd amputation with prior orthopedic replacement of the knee and chronic compression fracture of the femoral shaft into the condyles. Chest x-ray is negative. LABORATORY DATA: WBC 21.17, hemoglobin 11.9, hematocrit 37.1, platelet count 193. Sodium 134, potassium 3.4, chloride 96, CO2 22, anion gap 16. BUN 10, creatinine 0.4, glucose 89, uric acid 2.9. Calcium 8.8, bilirubin 0.62. AST 14, ALT less than 5, albumin 3.8, lactate 1.4. ASSESSMENT AND PLAN: 1. Sepsis: Source likely to be her right knee. Blood cultures have been obtained. We will start vancomycin and meropenem. We will consult Dr. Norris and orthopedics. Lactic acid is within normal limits. Will continue light intravenous fluid hydration and monitor response. 2. Toxic metabolic encephalopathy: Unclear as to the source. Will check a drug screen, UA and head CT. We will monitor neuro status on the floor. 3. Hypertension: Chronic and stable. Will continue her home medications. 4. Gastroesophageal reflux disease: Continue her omeprazole. 5. Bipolar disorder: We will continue her divalproex and check levels. 6. Deep vein thrombosis prophylaxis will be provided with Lovenox. Further recommendations to follow. Dictated by LARISSA Valdez for Baldemar Ogden MD cc: LARISSA Valdez Addendum: I personally evaluated and examined the patient in conjunction to the PASSENGER BARGE MASTER and agreed with his assessment and plan. Significant effusion on the right knee noted on my exam. GINNY
[2016-10-12 15:20] LABS: URINE MICRO REVIEW NEEDED? NO; URINE SOURCE CLEAN CATCH
[2016-10-12 15:24] LABS: BILIRUBIN URINE NEGATIVE (NEGATIVE); BLOOD URINE TRACE (NEGATIVE); COLOR YELLOW; GLUCOSE URINE NEGATIVE (NEGATIVE); LEUKOCYTES URINE SMALL (NEGATIVE); NITRITE URINE NEGATIVE (NEGATIVE); PH URINE 6.5; PROTEIN URINE 30 mg/dL (NEGATIVE); SP GRAVITY URINE 1.016; TURBIDITY URINE CLEAR (CLEAR); UR EPITHELIAL CELLS <10 /HPF (<10); URINE BACTERIA 1+ /HPF; URINE CULTURE NEEDED? YES; URINE RBC <10 /HPF (<10); URINE WBC <10 /HPF (<10); UROBILINOGEN URINE 3 mg/dL (NORMAL)
[2016-10-12 16:02] LABS: UR AMPHETAMINES QUAL NONE DETECTED (NONE DETECT); UR BARBITUATES QUAL NONE DETECTED (NONE DETECT); UR BENZODIAZEPIN QUAL NONE DETECTED (NONE DETECT); UR CANNABINOIDS QUAL NONE DETECTED (NONE DETECT); UR COCAINE QUAL NONE DETECTED (NONE DETECT); UR METHADONE QUAL NONE DETECTED (NONE DETECT); UR OPIATES QUAL PRESUMPTIVE POSITIVE (NONE DETECT); UR OXYCODONE QUAL NONE DETECTED (NONE DETECT); UR PCP QUAL NONE DETECTED (NONE DETECT)
[2016-10-12] MEDS ORDERED: NORCO-10 PO ONE (16:24)
[2016-10-12] MEDS ORDERED: VANCOMYCIN IV PER PHARMACY MISC SCH (17:27)
[2016-10-12] MEDS ORDERED: VANCOMYCIN 1 GM in NS 250 ML IV ONE (20:00)
[2016-10-12] MEDS: NEURONTIN PO SCH (20:40)
[2016-10-12] MEDS: PRAVACHOL PO SCH (20:40)
[2016-10-12] MEDS: TRICOR PO SCH (20:40)
[2016-10-12] MEDS: PERCOCET-5 PO PRN (22:27)
[2016-10-13] MEDS: MERREM 1 GM in NS 50 ML IV SCH ×3 (00:50→16:48)
[2016-10-13] MEDS: BENADRYL PO PRN (04:07)
[2016-10-13 07:11] LABS: HEMATOCRIT 35.1 % (37.0-47.0); MCH 28.9 PG (27-31); MCHC 31.3 g/dL (33-37); MCV 92.4 FL (81-99); MPV 11.4 FL (7.4-10.4); RBC 3.8 XMIL (4.2-5.4)
[2016-10-13] MEDS: PERCOCET-5 PO PRN ×3 (07:31→19:53)
[2016-10-13 07:39] LABS: AGAP 11; BUN 10 mg/dL (8-22); CALCIUM 8.8 mg/dL (8.8-10.2); CHLORIDE 104 mmol/L (98-107); COSMO 281; POTASSIUM 3.4 mmol/L (3.5-5.1); SODIUM 142 mmol/L (136-145); TCO2 27 mmol/L (25-35)
[2016-10-13] MEDS: DEPAKOTE PO SCH (08:36)
[2016-10-13] MEDS: NEURONTIN PO SCH ×2 (08:36→20:00)
[2016-10-13] MEDS: LOVENOX SUBQ SCH (08:36)
[2016-10-13] MEDS: NORVASC PO SCH (08:36)
--- NOTE | 2016-10-13 08:43 | PROGRESS NOTE ---
DATE: 10/13/2016 HISTORY OF PRESENT ILLNESS: This is 61-year-old female was admitted to the hospital. She has developed an infection in her right knee. MEDICATIONS: The patient has been started on vancomycin and meropenem. LAB AND X-RAY: The patient's CBC shows a white count of 12,060, hemoglobin 11, platelet count 142,000. The creatinine is 0.5. The GFR is greater than 60. Chest x-ray shows no pneumonia. An x-ray of the right knee shows a bzxtd-bei-omia amputation with prior orthopedic replacement of the knee and a chronic compression fracture of the femoral shaft into the condyles. There is collapse of the femoral condyles with compression of the shaft into the femoral condyles. Also, there is prominent atherosclerosis. PHYSICAL EXAMINATION: Vital Signs: Temperature is 98.4 degrees, pulse 93, respirations 21, blood pressure 152/56. Patient weighs 148 pounds. General: This is a chronically ill-appearing, middle-aged female. She is in no acute distress. Lungs: Clear to auscultation. Cardiovascular: Regular heart rate. Abdomen: Soft and nontender. Extremities: Patient has bilateral below-the- knee amputations. The right leg feels fluctuant. I aspirated some fluid from the patient's leg. It was serosanguineous in color. This morning, Dr. Keene aspirated fluid from the knee. It was cloudy. The right leg shows swelling and it is tender. I had aspirated some fluid from the leg. It was sanguinopurulent and Dr. Keene had performed an arthrocentesis. The fluid he got was cloudy. ASSESSMENT AND PLAN: The patient is on antibiotics, the combination of vancomycin and meropenem pending culture results. We have put a consult in for surgery to do a dkyrt-obp-xxap amputation of the right leg. COMORBIDITIES: Include peripheral vascular disease. cc: Hernandez Norris MD
--- NOTE | 2016-10-13 11:00 | PROGRESS NOTE ---
DATE: 10/13/2016 SUBJECTIVE: The patient is feeling better. Still has complaint of having knee pain. No fever. No chills. No nausea, vomiting, or diarrhea. OBJECTIVE: Vital Signs: Blood pressure 152/56, pulse of 93, respirations 21, temperature of 98.4 degrees, saturation of 97% on room air. General Appearance: Black female in mild to moderate distress due to pain in her right knee. HEENT: Anicteric sclerae. Clear conjunctivae. Neck: Supple. No JVD. No bruit. Cardiovascular: S1 and S2. Normal rate and rhythm. No murmur, rubs, or gallops. Pulmonary: Clear to auscultation bilaterally. GI: Soft, nontender, nondistended. Normoactive bowel sounds. Musculoskeletal: No clubbing, cyanosis, or edema. Laboratory: White count 12.06, hemoglobin 11, hematocrit of 35.1, platelets of 142,000. Chemistry: Sodium 142, potassium 3.4, chloride 104, bicarb 27, BUN 10, creatinine 0.5, glucose of 79. Urine grew out gram-negative rods. Sensitivities still pending. ASSESSMENT AND PLAN: This is a 61-year-old, black female admitted to the hospital for right knee pain. 1. Right knee pain with effusion, status post thoracentesis. Dr. Keene was consulted. So far, cultures have remained negative. The patient is on broad-spectrum antibiotics. Infectious disease is also following. The patient had recent below knee amputation on the right side as well. General surgery was consulted as well. 2. Hypertension. We will continue her on Norvasc. 3. Hyperlipidemia. We will continue her on TriCor and pravastatin. 4. Peripheral neuropathy. Continue on Neurontin. 5. Deep vein thrombosis prophylaxis. The patient on Lovenox. 6. Code Status. The patient is a full code. 7. Urinary tract infection. Again, there is a gram-negative braydon in the urine. We are waiting for identification and sensitivity.
[2016-10-13] MEDS: NS 1,000 ML IV SCH (15:16)
[2016-10-13] MEDS ORDERED: LOPRESSOR IV ONE (16:34)
--- NOTE | 2016-10-13 18:42 | CONSULTATION ---
DATE OF CONSULTATION: 10/13/2016 CHIEF COMPLAINT: Right knee pain. HISTORY OF PRESENT ILLNESS: This is a 61-year-old female with known peripheral vascular disease, hypertension and asthma who has had a previous bilateral below knee amputations who presented to the hospital with right knee swelling and pain which has been progressing over the last couple of weeks. She had some confusion on presentation. This has improved. She denies fever, chills, nausea, vomiting, or other systemic complaints. PAST MEDICAL HISTORY: Severe peripheral arterial disease status post bilateral below knee amputations. Hypertension, asthma, bipolar disorder, GERD, hyperlipidemia, peripheral neuropathy, chronic pain. PAST SURGICAL HISTORY: Bilateral below-knee amputations, exploratory laparotomy, hysterectomy, total knee replacement. FAMILY HISTORY: Reviewed and noncontributory. SOCIAL HISTORY: Negative for tobacco, alcohol, or illicit drugs. ALLERGIES: Amoxicillin. REVIEW OF SYSTEMS: Ten systems reviewed and negative except as noted above. PHYSICAL EXAMINATION: Vital Signs: Temperature 99.8 degrees, pulse 92, respirations 18, blood pressure 153/58, O2 saturation 94%. General: Elderly somewhat frail appearing female in no acute distress who looks her stated age. HEENT: Normocephalic, atraumatic. Extraocular muscles intact. Pupils equal, round, reactive to light. Sclerae anicteric. Neck: Supple. No thyromegaly. CV: Regular rate and rhythm. Respiratory: Bilateral breath sounds. No work of breathing. GI: Soft, nontender, nondistended. No organomegaly or mass. Extremities: She has bilateral BKA. The right knee is significantly swollen and tender and warm to touch. This is more of the knee joint and not the BKA stump. LABORATORY: White blood cell count 44041. It was 21,000 yesterday. Hemoglobin 11, platelet count 142,000. Electrolytes reviewed and unremarkable. A knee joint aspiration was performed which showed cloudy possibly purulent fluid. However, the Gram stain shows no bacteria. The Gram stain has some gram-positive cocci present. Urine culture is positive for greater than 100,000 gram-negative rods. ASSESSMENT/PLAN: A 61-year-old female with infected right knee joint and urinary tract infection. She is on broad-spectrum antibiotics per Dr. Norris. She is nonambulatory at baseline and at this point, it would be best to perform a right above knee amputation. I have discussed this also with Dr. Keene. He is in agreement. I have discussed the risks and benefits with the patient including bleeding, continued wound infection or wound healing problems after the amputation, chronic pain and other imponderables. She understands and agrees to proceed. cc: Baldemar Dunaway MD
[2016-10-13] MEDS: VANCOMYCIN 1,700 MG in NS 250 ML IV SCH (19:59)
[2016-10-13] MEDS: TRICOR PO SCH (20:00)
[2016-10-13] MEDS: PRAVACHOL PO SCH (20:00)
[2016-10-13] MEDS: LOPRESSOR PO SCH (20:00)
--- NOTE | 2016-10-13 20:07 | CONSULTATION ---
DATE OF CONSULTATION: 10/13/2016 CHIEF COMPLAINT: Right knee pain. HISTORY OF PRESENT ILLNESS: Patient is a 61-year-old female with multiple medical problems including peripheral vascular disease, hypertension, asthma, peripheral neuropathy and chronic pain who presented to the emergency room with swelling and pain in the right knee. Patient is status post bilateral below-knee amputations. She is status post right total knee arthroplasty. She had significant pain and discomfort with increased redness and appears to have undergone evaluation by Dr. Norris's office and was noted to have cellulitis as well as some altered mental status and presented to the emergency room and subsequently was admitted to the hospital. The patient was in the hospital last month with skin infections as well as cellulitis bacteremia and has been treated by Dr. Norris. She had worsening of her symptoms. She was also noted to have underwent evaluation by Dr. Orozco last month and was noted to have while in the hospital a supracondylar femur fracture with some suspicion for some loosening of the femoral component. The plan was treatment nonoperatively. She has continued with again worsening symptoms and presented back to the hospital and orthopedic consultation was requested. She was admitted to the hospital and placed on medications. Orthopedic consultation was requested. PAST MEDICAL HISTORY: Is significant for severe peripheral artery disease status post bilateral below-knee amputation, hypertension, asthma, bipolar disorder, gastroesophageal reflux disease, hyperlipidemia, peripheral neuropathy, and chronic pain. PAST SURGICAL HISTORY: Bilateral below-knee amputation, exploratory laparotomy , hysterectomy and right total knee arthroplasty. ALLERGIES: Amoxicillin. PHYSICAL EXAMINATION: Patient is awake, alert, and cooperative. Right lower extremity has a well- healed incision scar with diffuse swelling, increased warmth. There is significant tenderness to palpation. Tenderness to gentle movement. She has no breakdown of the stump or her incision. X- rays were reviewed and revealed evidence of supracondylar femur fracture with some collapse of the femoral condyle and indwelling implant. IMPRESSION: Right septic total knee arthroplasty with subacute supracondylar femur fracture. PLAN: At this point, discussed treatment options with the patient. At this time, would recommend to proceed aspiration of the knee approximately 15 mL of purulent fluid was obtained and will obtain gram stain, culture and sensitivity. Discussed with Dr. Norris and given the patient's nonambulatory status, and having a septic total knee arthroplasty joint infection. It was felt that the patient would benefit from right by phvrj-ttu-hnsg amputation. General Surgery will be consulted for further evaluation treatment recommendations. We will await culture results. cc: Anatoly Keene MD MTDD
[2016-10-14] MEDS: MERREM 1 GM in NS 50 ML IV SCH ×4 (00:58→23:59)
[2016-10-14] MEDS: PERCOCET-5 PO PRN ×2 (04:00→21:20)
[2016-10-14 06:58] LABS: AGAP 10; BUN 11 mg/dL (8-22); CALCIUM 8.5 mg/dL (8.8-10.2); CHLORIDE 105 mmol/L (98-107); COSMO 280; POTASSIUM 3.5 mmol/L (3.5-5.1); SODIUM 141 mmol/L (136-145); TCO2 26 mmol/L (25-35)
[2016-10-14 07:12] LABS: HEMATOCRIT 28.8 % (37.0-47.0); HEMOGLOBIN 8.9 g/dL (12.0-16.0); MCH 28.9 PG (27-31); MCHC 30.9 g/dL (33-37); MCV 93.5 FL (81-99); MPV 11.8 FL (7.4-10.4); RBC 3.08 XMIL (4.2-5.4)
[2016-10-14] MEDS: LOPRESSOR PO SCH ×2 (08:23→21:14)
[2016-10-14] MEDS: NORVASC PO SCH (08:23)
[2016-10-14] MEDS ORDERED: VERSED ONE (11:54)
[2016-10-14] MEDS ORDERED: DIPRIVAN 1% ONE (11:54)
[2016-10-14] MEDS: MORPHINE ONE ×5 (12:00→12:50)
--- NOTE | 2016-10-14 12:25 | OPERATIVE NOTE ---
PROCEDURE DATE: 10/14/2016 PREOPERATIVE DIAGNOSES: 1. Infected right knee joint. 2. Peripheral arterial disease. POSTOPERATIVE DIAGNOSES: 1. Infected right knee joint. 2. Peripheral arterial disease. 3. Infected prosthetic graft. SURGEON: Dr. Baldemar Dunaway. CASTING CHIPPER: Dr. Bahman Sims. PROCEDURES: 1. Right above-knee amputation. 2. Excision of infected prosthetic graft. ANESTHESIA: General. ESTIMATED BLOOD LOSS: 150 mL. COMPLICATIONS: None apparent. SPECIMENS: None. FINDINGS: The right knee remained swollen, tender, and hot to touch preoperatively. The soft tissues of the qlx-ll-imibcy thigh within our skin flaps were not grossly infected; however, the femoral popliteal PTFE graft had pus in it. There was no flow throughout the graft. There was apparent adequate collateral flow though to the muscle compartments and skin in the thigh. TECHNIQUE: She was brought to the operating room and placed supine on the table. General anesthesia was induced. She was prepped and draped in usual sterile fashion. A fishmouth-shaped incision was made 1 handsbreadth above the patella in the right thigh. This was carried down through the soft tissues with cautery, dividing perforating arteries and veins. As we went, some required clamping and ligation with 2-0 or 3-0 silk ties. We came down to the tibia and exposed it with cautery. A periosteal elevator was used to push the periosteum and muscle off of the tibia proximally and distally. I also encountered the PTFE graft in her medial thigh. I clamped it proximally and distally and divided it and found pus inside. I released the clamps. There was no blood flow throughout the graft. I left each limb clamped and continued our amputation. The superficial femoral artery and vein were both individually clamped, ligated, and divided. They were ligated with 2-0 silk stick ties. The artery was heavily calcified. There was some back bleeding in the distal artery. I then divided the tibia with a Gigli saw an inch or 2 proximal to our skin incision. The bone was filed with the rasp for a smooth edge. The remaining soft tissues were divided along the posterior flap with the amputation knife. I then passed the specimen off the field. Dr. Sims joined me at this point and, together, we dissected out the femoral graft as proximal as we could in the wound. I did extend my medial incision a couple of inches for better exposure. I think we got down very close to the anastomosis. I placed a right angle clamp across the graft near the anastomosis and divided and removed the distal portion. I then sewed the stump with a 4- 0 Prolene in two directions and tied it in the middle. The clamp was removed. There was no bleeding. I then thoroughly irrigated out the soft tissues with saline. Our muscle flaps were checked for bleeding. Dr. Sims was present and very helpful in assisting with exposing the proximal graft and getting it excised and ligated. He then left the field, and I continued with preparing for closure. Prior to excising the graft, I should also point out that we did wash out the muscle flaps and obtain hemostasis by cautery as well as several 3-0 silk ties on muscle perforating branches. Once I satisfied with hemostasis, the fascia was approximated with 0 Vicryl [id number] interrupted sutures. The skin was brought together with skin clips. There was very good coverage over the bone, and it was not under severe tension. A sterile dressing was applied. There were no apparent complications. She was awakened in stable condition and transferred to the recovery room. cc: Baldemar Dunaway MD
--- NOTE | 2016-10-14 14:21 | PROGRESS NOTE ---
DATE: 10/14/2016 HISTORY: The patient is status post right lbled-jpi-betq amputation and excision of an infected prosthetic graft. MEDICATIONS: The patient currently is receiving vancomycin and meropenem. PHYSICAL EXAMINATION: Vital Signs: Temperature is 100 degrees, pulse 84, respirations 18, blood pressure 108/47. Generally: This is an ill-appearing, middle-aged female. She is in no acute distress. Neurologic: She is alert. She can move her extremities. Lungs: Clear to auscultation. Cardiovascular: Regular heart rate. Abdomen: Soft and nontender. Extremities: The patient has a large dressing around the right leg. The dressing is intact. LABORATORY AND X-RAY: The patient's CBC shows a white count of 9030, hemoglobin 8.9, and platelet count 113,000. Creatinine 0.5. GFR is greater than 60. Urine is growing Escherichia coli. The patient's right leg grew methicillin-resistant Staphylococcus aureus and a gram-negative braydon. ASSESSMENT AND PLAN: The patient is status post amputation of an infected knee joint. It was found during surgery that the patient's arterial graft was involved. The graft was excised as high as Dr. Dunaway could get in the leg. He does mention that there was pus found around the graft. Since the arterial graft is involved, I plan on treating the patient for 6 weeks with the current antimicrobial agents namely vancomycin and meropenem pending final culture results. The patient's comorbidities include the peripheral vascular disease. cc: Hernandez Norris MD
[2016-10-14] MEDS: LOVENOX SUBQ SCH (14:58)
[2016-10-14] MEDS: DEPAKOTE PO SCH (14:59)
[2016-10-14] MEDS: NEURONTIN PO SCH ×2 (14:59→21:14)
[2016-10-14] MEDS ORDERED: TORADOL ONE (16:40)
[2016-10-14] MEDS ORDERED: NEOSTIGMINE ONE (16:40)
[2016-10-14] MEDS ORDERED: OFIRMEV 1000 MG/ISOTONIC SOLN 1,000 MG/100 ML BOTTLE ONE (16:41)
[2016-10-14] MEDS ORDERED: ROBINUL ONE (16:41)
[2016-10-14] MEDS ORDERED: XYLOCAINE-MPF 2% ONE (16:41)
[2016-10-14] MEDS ORDERED: ZEMURON ONE (16:41)
[2016-10-14] MEDS ORDERED: EPHEDRINE ONE (16:41)
[2016-10-14] MEDS ORDERED: NS 1,000 ML ONE (16:41)
[2016-10-14] MEDS: MORPHINE IV PRN ×2 (17:12→23:53)
[2016-10-14] MEDS: TRICOR PO SCH (21:14)
[2016-10-14] MEDS: PRAVACHOL PO SCH (21:14)
[2016-10-14] MEDS: VANCOMYCIN 1,700 MG in NS 250 ML IV SCH (21:19)
[2016-10-14] MEDS: NS 1,000 ML IV SCH (23:54)
[2016-10-15] MEDS: BENADRYL PO PRN (02:05)
[2016-10-15] MEDS ORDERED: TYLENOL PO PRN (05:33)
[2016-10-15] MEDS: NS 1,000 ML IV SCH ×2 (05:42→20:19)
[2016-10-15 07:09] LABS: HEMATOCRIT 24.7 % (37.0-47.0); HEMOGLOBIN 7.7 g/dL (12.0-16.0); MCH 30.1 PG (27-31); MCHC 31.2 g/dL (33-37); MCV 96.5 FL (81-99); MPV 11.1 FL (7.4-10.4); RBC 2.56 XMIL (4.2-5.4)
[2016-10-15 07:30] LABS: AGAP 11; BUN 10 mg/dL (8-22); CALCIUM 7.7 mg/dL (8.8-10.2); CHLORIDE 106 mmol/L (98-107); COSMO 285; POTASSIUM 3.7 mmol/L (3.5-5.1); SODIUM 143 mmol/L (136-145); TCO2 26 mmol/L (25-35)
[2016-10-15] MEDS: LOPRESSOR PO SCH ×2 (09:38→19:59)
[2016-10-15] MEDS: DEPAKOTE PO SCH (09:38)
[2016-10-15] MEDS: NEURONTIN PO SCH ×2 (09:38→19:59)
[2016-10-15] MEDS: NORVASC PO SCH (09:38)
[2016-10-15] MEDS: LOVENOX SUBQ SCH (09:38)
[2016-10-15] MEDS: MORPHINE IV PRN ×3 (09:42→20:29)
[2016-10-15] MEDS: ROCEPHIN 1 GM/NS 1 GM/50 ML IVPB IV SCH (09:55)
--- NOTE | 2016-10-15 11:28 | PROGRESS NOTE ---
DATE: 10/15/2016 SUBJECTIVE: The patient is feeling well. Her pain is somewhat under control. No fever. No chills. No nausea, vomiting or diarrhea. OBJECTIVE: Vital signs: Blood pressure 121/53, pulse of 71, respirations 16, temperature 98.2 degrees, satting 100% on room air. General appearance: Well-developed, well-nourished black female in no acute distress. HEENT: Anicteric sclerae. Clear conjunctivae. Neck: Supple. No JVD. No bruit. Cardiovascular: S1, S2. Normal rate and rhythm. No murmur, rubs, or gallops. Pulmonary: Clear to auscultation bilaterally. GI: Soft, nontender, nondistended. Normoactive bowel sounds. Musculoskeletal: Bilateral amputee now. The dressing on her right stump has fallen off. The wound looks good. LABORATORY: Sodium 143, potassium 3.7, chloride 106, bicarbonate 24, BUN 10, creatinine 0.4, glucose 124. WBC 6.70, hemoglobin and hematocrit 7.7 and 24.7, platelets 120. ASSESSMENT/PLAN: A 61-year-old, black female admitted to the hospital for right knee infection. 1. Right knee infection with methicillin-resistant Staphylococcus aureus with prosthetic knee status post amputation above the knee. She has been doing well. We will keep the patient on vancomycin for another day. We are stopping vancomycin after today. 2. Escherichia coli urinary tract infection. We will continue Rocephin. 3. Hyperlipidemia. Continue Pravachol. 4. Hypertension. Continue Norvasc and Lopressor. 5. Seizures disorder. Continue Depakote. CODE STATUS: The patient is a full code.
--- NOTE | 2016-10-15 12:19 | PROGRESS NOTE ---
DATE: 10/14/2016 SUBJECTIVE: The patient went down for the right AKA. I saw her after she got back. The patient is well. OBJECTIVE: Vital signs: Blood pressure 121/53, pulse of 71, temperature 98.2, sat 100% on room air. General appearance: Black female in no acute distress. HEENT: Anicteric sclerae and conjunctivae. Neck: Supple, no JVD, no bruit. Cardiovascular: S1 and S2, normal rate and rhythm, no murmur, rubs, or gallop. Pulmonary: Clear to auscultation bilaterally. GI: Soft, nontender, nondistended, normoactive bowel sounds. Musculoskeletal: Right AKA with dressing in place. No bleeding through noted. LABORATORY: White count 9.03, hemoglobin 8.9, hematocrit of 28.9, platelets of 113,000. Chemistry: Sodium 142, potassium 3.4, chloride 104, bicarb 27, BUN 10, creatinine 0.5, glucose 79. ASSESSMENT AND PLAN: This is a 63-year-old black female admitted to the hospital for right knee pain, status post methicillin-resistant Staphylococcus aureus on the arthrocentesis fluid. 1, Right knee infected with foreign material, status post gegnm-zqj-gxxq amputation to remove the hardware. 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 Will continue antibiotics for the next 24-48 hours then will stop antibiotics since the source of infection has been removed. Will continue to follow. Pain control. 2. Seizure disorder noted. Continue Depakote. 3. Hypertension. Continue Norvasc and metoprolol, 4. Urinary tract infection with E. coli. Change antibiotics to Rocephin. E. coli is pansensitive. 5. Hyperlipidemia. Continue Pravachol. 6. DVT prophylaxis. The patient is on Lovenox. Will check lab work tomorrow.
[2016-10-15] MEDS: PERCOCET-5 PO PRN ×2 (13:04→18:48)
--- NOTE | 2016-10-15 15:00 | PROGRESS NOTE ---
DATE: 10/15/2016 Ms. Makenzie Castillo is now postop day 1 from a right mnqcg-dje-jkdg amputation per Dr. Dunaway. She has had a Elberfeld-Avelino graft placed involving her right lower extremity in the past and we had to remove that graft close to its insertion right common femoral artery. Today postop day 1, she is awake, cooperative, comfortable. Her wound had to be redressed and is intact. cc: Livier Sims MD
[2016-10-15] MEDS: TRICOR PO SCH (19:59)
[2016-10-15] MEDS: PRAVACHOL PO SCH (19:59)
[2016-10-15] MEDS: VANCOMYCIN 1,700 MG in NS 250 ML IV SCH (20:18)
[2016-10-16] MEDS: MORPHINE IV PRN ×5 (05:05→22:12)
[2016-10-16 06:51] LABS: MANUAL DIFF NEEDED? NO
[2016-10-16 06:57] LABS: BASO% 0.2 % (0.0-0.8); EOS# 0.21 X1000 (0.0-0.7); EOS% 2.3 % (0.0-10.0); HEMATOCRIT 25.8 % (37.0-47.0); HEMOGLOBIN 7.9 g/dL (12.0-16.0); LYMPH# 2.22 X1000 (1.2-3.4); LYMPH% 24.6 % (20.5-51.1); MCH 28.4 PG (27-31); MCHC 30.6 g/dL (33-37); MCV 92.8 FL (81-99); MONO# 1.74 X1000 (0.11-0.59); MONO% 19.3 % (1.7-9.3); MPV 11.2 FL (7.4-10.4); NEUT% 53.6 % (42.2-75.2); PLT 145 X1000 (130-400); RBC 2.78 XMIL (4.2-5.4)
[2016-10-16] MEDS: PERCOCET-5 PO PRN ×3 (07:34→21:26)
[2016-10-16 07:37] LABS: AGAP 10; BUN 6 mg/dL (8-22); CALCIUM 7.9 mg/dL (8.8-10.2); CHLORIDE 106 mmol/L (98-107); COSMO 283; POTASSIUM 3.8 mmol/L (3.5-5.1); SODIUM 144 mmol/L (136-145); TCO2 28 mmol/L (25-35)
--- NOTE | 2016-10-16 08:40 | PROGRESS NOTE ---
DATE: 10/16/2016 SUBJECTIVE: The patient is having moderate pain on her right stump but no fever, no chills overnight. PHYSICAL EXAMINATION: Vital Signs: Blood pressure 165/62, pulse of 85, respirations 20, temperature of 99, T-max of 99.9 degrees. General Appearance: Well-developed, well-nourished, black female in no acute distress. HEENT: Anicteric sclerae. Clear conjunctivae. Neck: Supple. No JVD. No bruit. Cardiovascular: S1 and S2. Normal rate and rhythm. No murmur, rubs, or gallops. Pulmonary: Clear to auscultation bilaterally. GI: Soft, nontender, nondistended. Normoactive bowel sounds. Musculoskeletal: No clubbing, cyanosis, or edema. LABORATORY: White count 9.02, hemoglobin 7.9, hematocrit of 25.8, platelets 145,000. Chemistry: Sodium 144, potassium 3.8, chloride 106, bicarb 28, BUN 6, creatinine 0.3, glucose of 80. ASSESSMENT AND PLAN: This is a 61-year-old, black female admitted to the hospital for right knee pain. 1. Right knee methicillin-resistant Staphylococcus aureus with foreign material, status post above knee amputation. We will keep the patient on vancomycin for another day. Can stop after today. We will monitor her for 24 hours to make sure she does not have any fever. 2. Urinary tract infection,Escherichia coli. We will keep the patient on Rocephin. 3. Dhbxp-nay-kgsd amputation. Surgery is following. We will continue to manage her pain and place her back on her Lovenox. 4. Hypertension. Increase her Norvasc to twice a day today. Keep the patient on Lopressor and we will monitor the patient. 5. Overall, the patient is doing well. Hopefully we can discharge the patient home within the next several days.
[2016-10-16] MEDS: ROCEPHIN 1 GM/NS 1 GM/50 ML IVPB IV SCH (09:20)
[2016-10-16] MEDS: LOVENOX SUBQ SCH (09:20)
[2016-10-16] MEDS: DEPAKOTE PO SCH (09:21)
[2016-10-16] MEDS: NEURONTIN PO SCH ×2 (09:21→21:32)
[2016-10-16] MEDS: NORVASC PO SCH ×2 (09:21→21:32)
[2016-10-16] MEDS: LOPRESSOR PO SCH ×2 (09:21→21:32)
--- NOTE | 2016-10-16 10:37 | PROGRESS NOTE ---
DATE: 10/16/2016 DATE: 10/16/2016. SUBJECTIVE: Ms. Makenzie Castillo is now postoperative day 2 from a right mrfbq-vir-iixv amputation per Dr. Dunaway. OBJECTIVE: The wound seems to be healing well. She is awake, cooperative. Her hematocrit is 25%. Her white blood cell count is normal. BUN and creatinine are 6 and 0.3. Her heart rate is 85. Blood pressure 165/62, O2 saturation is 100% on nasal cannula O2. Her T-max is 99 degrees. She is receiving vancomycin and Rocephin. PLAN: We will continue supportive care, possibly physical therapy this week. cc: Livier Sims MD
[2016-10-16] MEDS: NS 1,000 ML IV SCH (18:55)
[2016-10-16] MEDS: VANCOMYCIN 1,700 MG in NS 250 ML IV SCH (21:28)
[2016-10-16] MEDS: PRAVACHOL PO SCH (21:32)
[2016-10-16] MEDS: TRICOR PO SCH (21:32)
[2016-10-17] MEDS: MORPHINE IV PRN ×5 (01:59→19:54)
[2016-10-17] MEDS: NS 1,000 ML IV SCH ×2 (03:17→14:27)
[2016-10-17] MEDS: PERCOCET-5 PO PRN ×2 (04:27→16:57)
[2016-10-17 07:13] LABS: AGAP 9; BUN 7 mg/dL (8-22); CALCIUM 8.4 mg/dL (8.8-10.2); CHLORIDE 103 mmol/L (98-107); COSMO 282; POTASSIUM 3.6 mmol/L (3.5-5.1); SODIUM 143 mmol/L (136-145); TCO2 31 mmol/L (25-35)
[2016-10-17 07:49] LABS: BASO% 0.2 % (0.0-0.8); EOS# 0.31 X1000 (0.0-0.7); EOS% 3.6 % (0.0-10.0); HEMATOCRIT 26.1 % (37.0-47.0); HEMOGLOBIN 8.1 g/dL (12.0-16.0); LYMPH# 2.74 X1000 (1.2-3.4); LYMPH% 31.4 % (20.5-51.1); MANUAL DIFF NEEDED? YES; MCH 29.3 PG (27-31); MCV 94.6 FL (81-99); MONO# 1.22 X1000 (0.11-0.59); NEUT% 50.8 % (42.2-75.2); PLT 125 X1000 (130-400); RBC 2.76 XMIL (4.2-5.4)
[2016-10-17 08:30] LABS: BANDS 2 % (0-1); EOS 4 % (1-10); HYPOCHROM 2+; LYMPHS 36 % (21-51); MONO 10 % (1-9)
[2016-10-17] MEDS: NEURONTIN PO SCH ×2 (09:33→19:59)
[2016-10-17] MEDS: DEPAKOTE PO SCH (09:33)
[2016-10-17] MEDS: NORVASC PO SCH ×2 (09:33→19:59)
[2016-10-17] MEDS: LOPRESSOR PO SCH ×2 (09:33→19:59)
[2016-10-17] MEDS: ROCEPHIN 1 GM/NS 1 GM/50 ML IVPB IV SCH (09:34)
[2016-10-17] MEDS: LOVENOX SUBQ SCH (09:34)
--- NOTE | 2016-10-17 14:02 | PROGRESS NOTE ---
DATE: 10/17/2016 SUBJECTIVE: The patient says she feels okay. She has some soreness in her thigh but no severe pain. OBJECTIVE: Vital Signs: She is afebrile. Vital signs are stable. General: She is alert and oriented x3. No acute distress. Extremities: Her right AKA stump wound was examined. It is clean, dry, and intact. There is no erythema. There is some mild edema. Her right groin also is mildly tender but no fluctuance or fluid collection appreciated. LABORATORY: White blood cell count 8.7, hemoglobin 8.1. ASSESSMENT/PLAN: A 61-year-old female, status post right lwgps-ljm-rlra amputation for infected right knee joint as well as infected prosthetic graft. Most of the graft has been excised. Her wound appears to be healing. She will continue with IV antibiotics for 6 weeks. cc: Baldemar Dunaway MD
[2016-10-17] MEDS ORDERED: VANCOMYCIN IV PER PHARMACY MISC SCH (16:00)
--- NOTE | 2016-10-17 16:23 | PROGRESS NOTE ---
DATE: 10/17/2016 SUBJECTIVE: Patient is still complaining of moderate pain on the right stump. No fever or chill reported. OBJECTIVE: Vital Signs: Temperature 99.2 degrees, heart rate 88, respiratory rate 18, blood pressure 138/53. O2 saturation 95% on room air. General: This is a 61-year-old female lying in bed, in no acute distress. HEENT: Head is normocephalic, atraumatic. Anicteric sclerae and pale conjunctivae. Mucous membranes moist. Neck: Supple. No JVD noted. No carotid bruits. No lymphadenopathy. No thyromegaly. Cardiovascular: S1, S2 heard. No murmurs, gallops, or rubs. Regular rate and rhythm. Respiratory: Clear bilaterally to auscultation. No work of breathing or using accessory muscles. Abdomen: Soft, nontender to palpation. Bowel sounds present. No organomegaly. Extremities: No clubbing, cyanosis, or edema. Peripheral pulses present in both legs. Neurological: Patient alert oriented x3. Moves 4 extremities. LABORATORY DATA: Reviewed. ASSESSMENT AND PLAN: 1. Status post right etdgs-ssj-bmaj amputation for infected right knee joint as well as infected prosthetic graft. Almost all the graft has been excised by Dr. Dunaway from General Surgery. Wound appears to be healing. In any case, as we mentioned before, she is currently on IV antibiotics for 6 weeks. 2. Urinary tract infection. Patient is on Rocephin. 3. Following amputation, Surgery following. 4. Hypertension. We are going to continue with the same doses of Norvasc. 5. Also, we will continue with Lopressor. 6. Overall, this patient is doing good and will discharge this patient when okay with General Surgery. cc: Tr Mckeon MD
--- NOTE | 2016-10-17 16:27 | PROGRESS NOTE ---
DATE: 10/17/2016 PRESENT ILLNESS: The patient is status post right xcbje-jav-jzjg amputation and excision of an infected prosthetic graft. MEDICATIONS: The patient is receiving Rocephin. PHYSICAL EXAMINATION: Vital Signs: Temperature is 99.2 degrees, pulse 88, respirations 18, blood pressure 138/53. General: This is a fairly healthy-appearing, middle-aged female. She is in no acute distress. Lungs: Clear to auscultation. Cardiovascular: Regular heart rate. Abdomen: Soft and nontender. Extremities: The patient has a right wouck-txu-tuab amputation. The incision site is clean and intact. There is no drainage. LABORATORY AND X-RAY: The CBC today showed a white count is 8720, hemoglobin 8.1 and platelet count 125,000. Creatinine 0.4. GFR is greater than 60. The culture from the right knee grew methicillin-resistant Staph aureus. ASSESSMENT AND PLAN: 1. Patient has methicillin-resistant Staph aureus septic knee arthritis. The patient does have an orcjt-ilu-pinl amputation. However, it is of interest to note that the patient's graft was infected and it was attempted to remove as much of the graft as possible, but possibly there still could be some remaining infected graft. My plan would be to continue with vancomycin and discontinue Rocephin. The patient did have a urinary tract infection, but I think that it is asymptomatic and no further antibiotic treatment is necessary. I plan to treat the patient for a total of 6 weeks with the intravenous vancomycin and possibly putting the patient on a long-term oral antibiotic which has activity against methicillin-resistant Staphylococcus aureus, including doxycycline or Septra. This is postoperative day 3 for the patient's leg amputation. 2. The patient's main comorbidity is that she has peripheral vascular disease. cc: Hernandez Norris MD
[2016-10-17] MEDS: TRICOR PO SCH (19:59)
[2016-10-17] MEDS: PRAVACHOL PO SCH (19:59)
[2016-10-17] MEDS: BENADRYL PO PRN (20:03)
[2016-10-17] MEDS ORDERED: VANCOMYCIN 1,700 MG in NS 250 ML IV SCH (21:00)
[2016-10-18] MEDS: MORPHINE IV PRN ×5 (00:28→21:08)
[2016-10-18] MEDS: PERCOCET-5 PO PRN ×3 (05:43→18:54)
[2016-10-18 07:38] LABS: AGAP 11; BUN 6 mg/dL (8-22); CALCIUM 7.7 mg/dL (8.8-10.2); CHLORIDE 102 mmol/L (98-107); COSMO 281; SODIUM 143 mmol/L (136-145); TCO2 30 mmol/L (25-35)
[2016-10-18] MEDS: DEPAKOTE PO SCH (08:56)
[2016-10-18] MEDS: LOPRESSOR PO SCH ×2 (08:56→21:16)
[2016-10-18] MEDS: LOVENOX SUBQ SCH (08:56)
[2016-10-18] MEDS: NEURONTIN PO SCH ×2 (08:56→21:17)
[2016-10-18] MEDS: NORVASC PO SCH ×2 (08:56→21:17)
[2016-10-18] MEDS: ROCEPHIN 1 GM/NS 1 GM/50 ML IVPB IV SCH (09:07)
[2016-10-18 16:10] LABS: MANUAL DIFF NEEDED? NO
[2016-10-18] MEDS: NS 1,000 ML IV SCH ×2 (16:19→16:25)
[2016-10-18 16:26] LABS: BASO% 0.4 % (0.0-0.8); EOS# 0.28 X1000 (0.0-0.7); EOS% 3.4 % (0.0-10.0); HEMATOCRIT 24.4 % (37.0-47.0); HEMOGLOBIN 7.7 g/dL (12.0-16.0); IMM GRAN# 0.03 X1000 (0.0-0.04); IMM GRAN% 0.4 % (0.0-0.5); LYMPH# 2.21 X1000 (1.2-3.4); LYMPH% 26.6 % (20.5-51.1); MCH 28.5 PG (27-31); MCHC 31.6 g/dL (33-37); MCV 90.4 FL (81-99); MONO# 1.19 X1000 (0.11-0.59); MONO% 14.3 % (1.7-9.3); MPV 10.7 FL (7.4-10.4); NEUT% 54.9 % (42.2-75.2); PLT 185 X1000 (130-400)
--- NOTE | 2016-10-18 16:37 | PROGRESS NOTE ---
DATE: 10/18/2016 SUBJECTIVE: Patient complaining of less pain in the right stump. No fever or chills reported. OBJECTIVE: Vital Signs: Temperature 99.4 degrees, heart rate 90, respiratory rate 173/67, O2 saturation 90% 3 L nasal cannula. General Examination: This is a chronically ill-looking and frail, 61-year-old female lying in bed, in no acute distress. HEENT: Head is normocephalic and atraumatic. Anicteric sclerae and pale conjunctivae. Mucous membranes moist. Neck: Supple. No JVD noted. No carotid bruits. No lymphadenopathy. No thyromegaly. Cardiovascular: S1, S2 heard. No murmurs, gallops, or rubs. Regular rate and rhythm. Respiratory: Clear bilaterally to auscultation. No work of breathing or using accessory muscles. Abdomen: Soft, nontender to palpation. Bowel sounds present. No organomegaly. Extremities: No clubbing, cyanosis, or edema. Above the knee amputation in both lower extremities. Neurological: Patient alert and oriented x3. Moves 4 extremities. LABORATORY DATA: Reviewed. ASSESSMENT AND PLAN: 1. Status post right ucsbp-uvz-phrh amputation for infected right knee joint as well as infected prosthetic graft. has been taking care of this patient and almost all the graft has been excised. They report that the wound is healing well. So I think at this point, from surgical standpoint, she can be discharged. Dr. Norris is also following this patient and she is on IV antibiotics. We will talk to him to on what antibiotic this patient will need so she can be sent home. Patient lives with daughter so I do not think there will be a problem that she can stay there. 2. Urinary tract infection. Dr. Norris is following this patient. I believe he does not think that this patient needs to be on antibiotics. We will follow recommendations. 3. Hypertension. We will continue with Norvasc, last reading was a little bit higher, but on checking all the trend from today the patient is doing good. 4. Overall this patient is doing good, and will try to send this patient tomorrow with antibiotics at the discretion of Dr. Norris, infectious disease doctor. cc: Tr Mckeon MD
--- NOTE | 2016-10-18 18:04 | PROGRESS NOTE ---
DATE: 10/18/2016 SUBJECTIVE: The patient complains of some pain around her incision on the medial side of her right AKA stump. OBJECTIVE: Vital signs: She is afebrile. Vital signs are stable. General: Alert, orient x4. No acute distress. Extremities: Her right AKA stump is mildly edematous, but no erythema, foul drainage, induration or odor are appreciated. It appears to be healing appropriately. ASSESSMENT/PLAN: A 61-year-old female with peripheral arterial disease status post recent above- knee amputation for infected knee joint as well as removal of infected prosthetic graft. She appears to be healing appropriately. She will go home on long-term antibiotics per Dr. Norris. She may need a PICC line for that. cc: Baldemar Dunaway MD
[2016-10-18] MEDS: VANCOMYCIN 1.2 GM in NS 250 ML IV SCH (21:16)
[2016-10-18] MEDS: PRAVACHOL PO SCH (21:17)
[2016-10-18] MEDS: TRICOR PO SCH (21:17)
[2016-10-19] MEDS: MORPHINE IV PRN ×4 (05:14→20:59)
[2016-10-19 06:49] LABS: MANUAL DIFF NEEDED? NO
[2016-10-19] MEDS: PERCOCET-5 PO PRN ×2 (06:52→15:45)
[2016-10-19 07:01] LABS: BASO% 0.3 % (0.0-0.8); EOS# 0.38 X1000 (0.0-0.7); EOS% 5.3 % (0.0-10.0); HEMATOCRIT 24.9 % (37.0-47.0); HEMOGLOBIN 7.8 g/dL (12.0-16.0); LYMPH# 2.17 X1000 (1.2-3.4); LYMPH% 30.2 % (20.5-51.1); MCH 28.3 PG (27-31); MCHC 31.3 g/dL (33-37); MCV 90.2 FL (81-99); MONO# 0.91 X1000 (0.11-0.59); MONO% 12.7 % (1.7-9.3); MPV 10.2 FL (7.4-10.4); NEUT% 51.5 % (42.2-75.2); PLT 183 X1000 (130-400); RBC 2.76 XMIL (4.2-5.4)
[2016-10-19] MEDS: NORVASC PO SCH ×3 (07:33→21:01)
[2016-10-19] MEDS: DEPAKOTE PO SCH ×2 (07:33→08:07)
[2016-10-19] MEDS: NEURONTIN PO SCH ×3 (07:33→21:01)
[2016-10-19] MEDS: LOVENOX SUBQ SCH ×2 (07:33→08:07)
[2016-10-19] MEDS: LOPRESSOR PO SCH ×3 (07:33→21:01)
[2016-10-19] MEDS: VANCOMYCIN 1.2 GM in NS 250 ML IV SCH ×2 (09:03→21:01)
--- NOTE | 2016-10-19 14:19 | PROGRESS NOTE ---
DATE: 10/19/2016 SUBJECTIVE: She complains of some soreness and pain in her right AKA stump. OBJECTIVE: Vital Signs: She is afebrile. Vital signs are stable. General: Alert and oriented x4. In no acute distress. Extremities: Her right AKA stump is mildly edematous, but soft. No fluctuance, erythema, warmth, or drainage. LABORATORY: White blood cell count 7.2, hemoglobin 7.8, and this is stable. ASSESSMENT/PLAN: A 61-year-old female, status post right above-knee amputation and removal of infected prosthetic graft. I think she is healing appropriately and could be discharged per the primary team to continue long-term IV antibiotics per Dr. Norris. She can follow up in my office in the next 10 days or so for a wound check. cc: Baldemar Dunaway MD
--- NOTE | 2016-10-19 14:50 | PROGRESS NOTE ---
DATE: 10/19/2016 PRESENT ILLNESS: The patient is status post right ghbjf-gtk-xshv amputation. She was found to have an infection on her arterial graft. Dr. Dunaway removed as much of the graft as he was able to get to. MEDICATIONS: The patient is on vancomycin. This is day 2 of being on vancomycin. PHYSICAL EXAMINATION: Vital Signs: Temperature is 98.8 degrees, pulse 81, respirations 20, blood pressure 168/63. General: This is a somewhat ill-appearing middle-aged female. She is in no acute distress. Lungs: Clear to auscultation. Cardiovascular: Regular heart rate. Abdomen: Soft and not tender. Extremities: The patient's right leg incision is intact. There is no drainage coming from the incision. The leg is a little swollen today and we have elevated it on some foam rubber. LABORATORY AND X-RAY: CBC today shows a white count of 7190. Hemoglobin 7.8. Platelet count 183,000. Creatinine is 0.3. GFR is greater than 60. ASSESSMENT AND PLAN: 1. Since the patient's graft was involved and not all the graft could be removed, I plan to treat the patient for 6 weeks with IV vancomycin. As mentioned above, this is day 2 of treatment with it. I told the patient we will need a PICC and she asked if it could be put in tomorrow and not today. Therefore, I have ordered that a PICC be placed tomorrow and we will continue with her vancomycin. 2. Comorbidity is that she has peripheral vascular disease. cc: Hernandez Norris MD
--- NOTE | 2016-10-19 16:51 | PROGRESS NOTE ---
DATE: 10/19/2016 SUBJECTIVE: Patient complaining of less pain. No fever or chills. OBJECTIVE: Vital Signs: Temperature 98.6 degrees, heart rate 86, respiratory rate 20, blood pressure 163/63, O2 saturation 100% 3 L nasal cannula. General Examination: This is a chronically ill-looking and frail, looking older than her age, 61-year-old female lying in bed, in no acute distress. HEENT: Head is normocephalic and atraumatic. Anicteric sclerae and pale conjunctivae. Mucous membranes moist. Neck: Supple. No JVD noted. No carotid bruits. No lymphadenopathy. No thyromegaly. Cardiovascular: S1, S2 heard. No murmurs, gallops, or rubs. Regular rate and rhythm. Respiratory: Clear bilaterally to auscultation. No work of breathing or using accessory muscles. Abdomen: Soft, nontender to palpation. Bowel sounds present. No organomegaly. Extremities: There is bilateral above-the- knee amputation. Neurological: Patient is alert and oriented x3. LABORATORY DATA: Reviewed. ASSESSMENT AND PLAN: 1. Status post right oswep-bqf-zfxr amputation for infected right knee as well as infected prosthetic graft. Dr. Dunaway has been following this patient, he is okay to let this patient go with IV antibiotics. Dr. Norris has been following this patient and he ordered a PICC line to be placed tomorrow and from there the patient can be discharged. The patient requests one more day in the hospital because she does not have anybody that is going to be there at home. We will see what we can do for this patient. 2. Urinary tract infection. Patient is not on any antibiotics. Dr. Norris was following this patient. 3. Hypertension. Blood pressure is well controlled. We will continue with [facility]. cc: Tr Mckeon MD
[2016-10-19] MEDS: NS 1,000 ML IV SCH ×2 (17:07)
[2016-10-19] MEDS: PRAVACHOL PO SCH (21:01)
[2016-10-19] MEDS: TRICOR PO SCH (21:01)
[2016-10-20] MEDS: PERCOCET-5 PO PRN ×3 (00:20→17:41)
[2016-10-20 06:36] LABS: MANUAL DIFF NEEDED? NO
[2016-10-20] MEDS: MORPHINE IV PRN ×5 (06:38→23:09)
[2016-10-20 06:53] LABS: INR 1.1; PROTIME 11.6 Seconds (9.2-11.7)
[2016-10-20 06:57] LABS: BASO% 0.2 % (0.0-0.8); EOS# 0.38 X1000 (0.0-0.7); EOS% 6.1 % (0.0-10.0); HEMATOCRIT 24.1 % (37.0-47.0); HEMOGLOBIN 7.6 g/dL (12.0-16.0); LYMPH# 2.22 X1000 (1.2-3.4); LYMPH% 35.9 % (20.5-51.1); MCH 28.7 PG (27-31); MCHC 31.5 g/dL (33-37); MCV 90.9 FL (81-99); MONO% 12.9 % (1.7-9.3); MPV 9.7 FL (7.4-10.4); NEUT% 44.9 % (42.2-75.2); PLT 162 X1000 (130-400); RBC 2.65 XMIL (4.2-5.4)
[2016-10-20] MEDS: LOVENOX SUBQ SCH (08:09)
[2016-10-20] MEDS: LOPRESSOR PO SCH ×2 (08:09→22:51)
[2016-10-20] MEDS: NORVASC PO SCH ×2 (08:09→22:51)
[2016-10-20] MEDS: NEURONTIN PO SCH ×2 (08:09→22:51)
[2016-10-20] MEDS: DEPAKOTE PO SCH (08:09)
[2016-10-20] MEDS: VANCOMYCIN 1.2 GM in NS 250 ML IV SCH ×2 (08:15→23:09)
[2016-10-20] MEDS ORDERED: NS 250 ML ONE (09:11)
[2016-10-20] MEDS: NS 1,000 ML IV SCH ×2 (09:41→14:46)
--- NOTE | 2016-10-20 17:04 | PROGRESS NOTE ---
DATE: 10/20/2016 SUBJECTIVE: Patient has no focal complaints. OBJECTIVE: Vital signs: Blood pressure 166/60, heart rate 77, respiratory rate 18, temperature 98.4 degrees, 94% on room air. Cardiovascular: Regular rate and rhythm. Pulmonary: Bilateral breath sounds. Clear to auscultation. GI: Soft, nontender, nondistended. Bowel sounds are positive. Extremities: No clubbing or cyanosis. Lymphatics: No peripheral edema. Neurological: Nonfocal. LABORATORY DATA: White count 6, hemoglobin and hematocrit 7 and 24, platelets 162,000. Chemistries: Potassium 3, but that was a couple days ago. PROBLEM LIST: 1. Methicillin-resistant Staphylococcus aureus infection of her right knee prosthetic graft. We will continue IV antibiotics per Dr. Norris. She has a PICC line. Home health is being set up. Plan for discharge tomorrow. 2. Urinary tract infection is stable. We are not treating that actively at this point, because she is asymptomatic. DISPOSITION: Likely home tomorrow if the patient stabilizes on home IV therapy. cc: Palomo De La Torre MD
[2016-10-20] MEDS: MIRALAX PO SCH (18:59)
[2016-10-20] MEDS: LACTULOSE PO SCH (22:50)
[2016-10-20] MEDS: TRICOR PO SCH (22:51)
[2016-10-20] MEDS: PRAVACHOL PO SCH (22:51)
[2016-10-21] MEDS: PERCOCET-5 PO PRN ×3 (00:54→15:30)
[2016-10-21 06:38] LABS: MANUAL DIFF NEEDED? NO
[2016-10-21 07:04] LABS: BASO% 0.1 % (0.0-0.8); EOS# 0.46 X1000 (0.0-0.7); EOS% 6.8 % (0.0-10.0); HEMATOCRIT 24.3 % (37.0-47.0); HEMOGLOBIN 7.5 g/dL (12.0-16.0); LYMPH# 2.42 X1000 (1.2-3.4); MCHC 30.9 g/dL (33-37); MCV 90.7 FL (81-99); MONO# 0.68 X1000 (0.11-0.59); MONO% 10.1 % (1.7-9.3); MPV 9.8 FL (7.4-10.4); PLT 151 X1000 (130-400); RBC 2.68 XMIL (4.2-5.4)
[2016-10-21 07:08] LABS: AGAP 11; BUN 5 mg/dL (8-22); CALCIUM 8.2 mg/dL (8.8-10.2); CHLORIDE 103 mmol/L (98-107); COSMO 281; POTASSIUM 3.3 mmol/L (3.5-5.1); SODIUM 143 mmol/L (136-145); TCO2 29 mmol/L (25-35)
[2016-10-21 07:37] VITALS: BP 156/59
[2016-10-21] MEDS: LACTULOSE PO SCH (08:37)
[2016-10-21] MEDS: MIRALAX PO SCH (08:37)
[2016-10-21] MEDS: DEPAKOTE PO SCH (08:37)
[2016-10-21] MEDS: NORVASC PO SCH (08:37)
[2016-10-21] MEDS: LOVENOX SUBQ SCH (08:37)
[2016-10-21] MEDS: VANCOMYCIN 1.2 GM in NS 250 ML IV SCH (08:37)
[2016-10-21] MEDS: NEURONTIN PO SCH (08:37)
[2016-10-21] MEDS: LOPRESSOR PO SCH (08:37)
[2016-10-21] MEDS ORDERED: KLOR-CON PO ONE (09:34)
[2016-10-21] MEDS: MORPHINE IV PRN (10:46)
--- NOTE | 2016-10-21 11:47 | DISCHARGE SUMMARY ---
ADMISSION DATE: 10/12/2016 DISCHARGE DATE: 10/21/2016 ADMISSION DIAGNOSES: 1. Sepsis. 2. Toxic metabolic encephalopathy. 3. Hypertension. 4. Gastroesophageal reflux disease. 5. Bipolar. DISCHARGE DIAGNOSES: 1. Sepsis. 2. Toxic metabolic encephalopathy. 3. Hypertension. 4. Gastroesophageal reflux disease. 5. Bipolar. 6. Right kcabk-qxj-hjhh amputation infection with methicillin-resistant Staphylococcus aureus cultured from the wound. CONSULTATIONS: 1. Baldemar Dunaway MD with Surgery. 2. Hernandez Norris MD with Infectious Disease. DIAGNOSTIC PROCEDURES AND FINDINGS: 1. Chest x-ray done on 10/12/2016 shows stable chest. 2. Knee x-ray done on 10/12/2016 shows below the knee amputation with prior orthopedic replacement of the knee and chronic compression fracture of the femoral shaft into the condyles. 3. Head CT done on 10/12/2016 shows no hemorrhage. Interval improvement of sinusitis. HOSPITAL COURSE: Mrs. Castillo is a 61-year-old female, well known to our service. She has severe PVD status post lower extremity amputations bilaterally who came in with worsening right AKA pain and swelling. She went to Dr. Norris' office who felt that she had cellulitis and possible deeper infection and sent her to the ER. There was also some confusion on the patient's part on arrival to the ER so a head CT was done, this did not show anything acute. However, her laboratory data and vital signs were consistent with sepsis and the patient was admitted. Knee x- ray did show some effusion. We consulted Dr. Dunaway with General Surgery who took the patient to the operating room on 10/14/2016. He did find infected right knee joint and infected prosthetic graft. Cultures were taken which ultimately grew MRSA. Dr. Norris added IV vancomycin which has been infusing daily. She has stabilized nicely, her labs have normalized, and she is now stable for discharge home with home health and IV antibiotics. MEDICATIONS: Norvasc 5 mg b.i.d., divalproex 125 mg daily, TriCor 145 mg at bedtime, Neurontin 300 mg b.i.d., Lopressor 25 mg b.i.d., [place] 7.5 mg 1 t.i.d., Pravachol 80 mg p.o. at bedtime, vancomycin per Dr. Norris. DISCHARGE LABORATORY STUDIES: WBC 6.73, hemoglobin 7.5, hematocrit 24.3, and platelet count 151,000. PT 11.6, INR 1.1. Sodium 143, potassium 3.3, chloride 103, CO2 29, anion gap 11, BUN 5, creatinine 0.3, glucose 77. Calcium 8.2. PHYSICAL EXAMINATION: General: Chronically ill-appearing 61-year-old female, lying in hospital bed in no acute distress. Neurologic: She is awake and alert. Exam is nonfocal. HEENT: Head is atraumatic, normocephalic. Neck: Supple. Trachea is midline. Chest: Clear to auscultation. Cardiovascular: Regular rate and rhythm. S1-S2 is noted. Gastrointestinal: Soft, nondistended, nontender. Extremities: Right above-the -knee amputation site is clean, dry, and intact. Schuyler are without dehiscence and no drainage is noted. DISCHARGE DIET: Heart healthy. DISCHARGE ACTIVITY: Resume activity as tolerated. DISPOSITION AND DISCHARGE INSTRUCTIONS: 1. Patient is discharged home with home health. 2. She is to follow up with Dr. Dunaway and Dr. Norris within the next few weeks as directed. 3. She is to continue on IV antibiotics. 4. She is to return to the ER or call 911 for any worsening complaints or concerns. All questions have been answered. TIME SPENT: Discharge time is greater than 35 minutes. Dictated by LARISSA Valdez for Palomo De La Torre MD cc: LARISSA Valdez MD Leroy F. Harris, MD Jason R. Seale, MD pt examined, agree with above APENOT MTDD
--- NOTE | 2016-10-21 12:03 | PROGRESS NOTE ---
DATE: 10/21/2016 PRESENT ILLNESS: The patient is status post uigww-lsw-tqsi amputation. It was found that the patient had an infection on her arterial graft. Dr. Dunaway, who operated on the patient, removed as much of the graft as he was able to get to. MEDICATIONS: The patient is on vancomycin. This is day 4 of vancomycin. PHYSICAL EXAMINATION: Vital Signs: Temperature is 98.7 degrees, pulse 76, respirations 18, blood pressure 156/59. General: This is a fairly healthy-appearing middle-aged female. She is in no acute distress. Lungs: Clear to auscultation. Cardiovascular: Regular heart rate. Abdomen: Soft and nontender. Extremities: The patient's right leg is somewhat swollen. The incision is intact. There is no erythema. There is no drainage coming from the incision. The patient has a PICC in the right arm. The site is not swollen or erythematous. LABORATORY AND X-RAY: The CBC for today shows a white count of 6730, hemoglobin 7.5, and platelet count 151,000. Creatinine is 0.3 GFR is greater than 60. ASSESSMENT AND PLAN: The patient has a graft infection. My plan is to give the patient a 6-week course of intravenous treatment for this with vancomycin. As mentioned above, I plan to treat the patient for 6 weeks with intravenous vancomycin through her peripherally inserted central catheter. I have consulted [facility] to supply the home antibiotics. I am going to see the patient back in the office in 3 weeks. COMORBIDITY: She has peripheral vascular disease. cc: Hernandez Norris MD
== END 2016-10-21 16:46 | disposition home health service (06) ==
LOC: ED 10:44 → SUATTDRO 14:33 → EDIPHOLD 14:33 → 3N 16:47
PROVIDERS: ATTEND Internal Medicine

== ENCOUNTER 2019-05-03 00:45 | Inpatient (IN) ==
[2019-05-03] MEDS ORDERED: MAXIPIME 2 GM in NS 100 ML IV ONE (01:22)
[2019-05-03] MEDS ORDERED: NS 1,000 ML IV ONE (01:22)
[2019-05-03] MEDS ORDERED: NS 500 ML IV ONE (01:22)
[2019-05-03] MEDS ORDERED: MORPHINE IV ONE (01:57)
[2019-05-03] MEDS ORDERED: ATIVAN IV ONE ×2 (01:57→11:36)
[2019-05-03 02:08] LABS: BASO# 0.01 X1000 (0.0-0.2); BASO% 0.1 % (0.0-0.8); EOS# 0.14 X1000 (0.0-0.7); EOS% 1.1 % (0.0-10.0); HEMATOCRIT 48.5 % (37.0-47.0); HEMOGLOBIN 15.7 g/dL (12.0-16.0); IMM GRAN# 0.05 X1000 (0.0-0.04); IMM GRAN% 0.4 % (0.0-0.5); LYMPH# 3.45 X1000 (1.2-3.4); LYMPH% 26.4 % (20.5-51.1); MCH 27.7 PG (27-31); MCHC 32.4 g/dL (33-37); MCV 85.5 FL (81-99); MONO# 0.71 X1000 (0.11-0.59); MONO% 5.4 % (1.7-9.3); MPV 11.4 FL (7.4-10.4); NEUT% 66.6 % (42.2-75.2); PLT 241 X1000 (130-400); RBC 5.67 XMIL (4.2-5.4); RDW 14.9 % (11.5-14.5); WBC 13.06 X1000 (4.8-10.8)
[2019-05-03 02:23] LABS: INR 1.01; PROTIME 13.4 Seconds (11.0-16.0)
[2019-05-03 02:24] LABS: PTT 34.2 Seconds (22.3-41.8)
[2019-05-03 02:41] LABS: AGAP 20; ALB/GLOB RATIO 1.5; ALBUMIN 4.7 g/dL (3.5-5.0); ALKALINE PHOSPHATASE 115 U/L (32-104); BUN 16 mg/dL (8-22); CALCIUM 9.7 mg/dL (8.8-10.2); CHLORIDE 102 mmol/L (98-107); CK PROFILE 96 U/L (24-173); COSMO 288; CREATININE 0.7 mg/dL (0.5-0.9); ESTIMATED GFR > 60; GLUCOSE 133 mg/dL (70-104); GOT 20 U/L (10-30); GPT 12 U/L (10-36); POTASSIUM 3.9 mmol/L (3.5-5.1); SODIUM 143 mmol/L (136-145); TCO2 21 mmol/L (25-35); TOTAL BILIRUBIN 0.37 mg/dL (0.20-1.00); TOTAL PROTEIN 7.9 g/dL (6.3-8.3)
[2019-05-03] MEDS ORDERED: DILAUDID IV ONE ×2 (02:55→10:07)
[2019-05-03 04:01] LABS: URINE SOURCE CATH
[2019-05-03 04:04] LABS: BILIRUBIN URINE NEGATIVE (NEGATIVE); BLOOD URINE TRACE (NEGATIVE); COLOR YELLOW; GLUCOSE URINE NEGATIVE (NEGATIVE); KETONE URINE TRACE mg/dL (NEGATIVE); LEUKOCYTES URINE NEGATIVE (NEGATIVE); NITRITE URINE NEGATIVE (NEGATIVE); PROTEIN URINE 200 mg/dL (NEGATIVE); SP GRAVITY URINE 1.021; TURBIDITY URINE CLEAR (CLEAR); UROBILINOGEN URINE NORMAL (NORMAL)
[2019-05-03 04:05] LABS: UR EPITHELIAL CELLS <10 /HPF (<10); URINE BACTERIA NEGATIVE /HPF; URINE RBC <10 /HPF (<10); URINE WBC <10 /HPF (<10)
--- NOTE | 2019-05-03 05:21 | PROVIDER DOCUMENTATION ---
This chart was entered by Kathy Brink Scribe, acting as scribe for Srinivasan Wilkins MD. HPI-Abdominal Pain/GI Problem - General Chief Complaint: Abdominal Pain Stated Complaint: AMS Time Seen by Provider: 05/03/19 01:16 Source: patient Allergies/Adverse Reactions: Patient Allergies Allergy/AdvReac Type Severity Reaction Status Date / Time amoxicillin Allergy Unknown RASH Verified 10/12/16 12:09 Home Medications: Home Medication List Medication Instructions Recorded Confirmed Last Taken Type Divalproex Sodium 125 mg PO DAILY 01/25/16 10/12/16 01/28/16 18:00 History Fenofibrate [Tricor] 145 mg PO QHS 01/25/16 10/12/16 01/28/16 18:00 History Gabapentin 300 mg PO BID 01/25/16 10/12/16 01/28/16 18:00 History Oxycodone HCl/Acetaminophen 1 each PO TID 08/29/16 10/12/16 Unknown History [Endocet 7.5-325 mg Tablet] Pravastatin Sodium [Pravachol] 80 mg PO HS 08/29/16 10/12/16 10/11/16 History Amlodipine [Norvasc] 5 mg PO BID #60 tablet 10/21/16 Unknown Rx Metoprolol [Lopressor] 25 mg PO BID #60 tablet 10/21/16 Unknown Rx - History of Present Illness-ABD Nature of Presenting Problems: 64yof presents to ED cc severe abdominal pain, diarrhea and runny nose for last 5hrs. Pt denies F/france/V. Pt has hx of HTN, anxiety and chronic pain. Pt is writhing in pain upon exam. Abdominal Pain Onset Location: reports: generalized abdomen Quality of Pain: reports: cramping Severity in ED: reports: moderate Onset/Duration: reports: 4-6 hours ago Timing: reports: still present Activities at Onset: reports: light activity Modifying Factors: improves with: nothing Associated Symptoms: reports: diarrhea, sinus congestion/drainage Similar Symptoms Previously?: No Recently seen or treated by another doctor?: No Review of Systems - Adult - REVIEW OF SYSTEMS - ADULT Constitutional: reports: see HPI. denies: chills, fever, fatique Eyes: reports: no symptoms reported Ears, Nose, Mouth & Throat: reports: no symptoms reported Cardiovascular: reports: no symptoms reported Respiratory: reports: no symptoms reported Gastrointestinal: reports: see HPI, abdominal pain, diarrhea. denies: nausea, vomiting Genitourinary: reports: no symptoms reported Musculoskeletal: reports: no symptoms reported Integumentary: reports: no symptoms reported Neurological: reports: see HPI, headache/migraines Psychiatric: reports: no symptoms reported Endocrine: reports: no symptoms reported Hematologic/Lymphatic: reports: no symptoms reported Allergic/Immunologic: reports: no symptoms reported All Other Systems: Reviewed and Negative Past History - Adult - PAST MEDICAL HISTORY-ADULT Review of Records: reports: Nursing Assessment Review, Medications Reviewed, Social history reviewed & non-contributory. Major Childhood Illnesses: reports: denies history Cardiovascular: reports: CAD, HTN, hyperlipidemia Respiratory: reports: asthma, sleep apnea Gastrointestinal: reports: denies history Obstetrical/Gynecological: reports: denies history Genitourinary: reports: denies history Musculoskeletal: reports: denies history Neurological: reports: denies history Psychiatric: reports: psychiatric problems Endocrine/Immune: reports: HIV/AIDS Other Conditions: reports: other (atherosclerosis) - PRIOR SURGERIES/PROCEDURES Surgical/Procedure History: reports: hysterectomy, other (bilateral BKA, right big toe amputation) - IMMUNIZATION STATUS Childhood Immunizations: See Nurse Assessment Flu Vaccine: See Nurse Assessment - FAMILY HISTORY Family History: reviewed, not pertinent - SOCIAL HISTORY Smoking: denies Physical Exam-General - PHYSICAL EXAM-ADULT Initial Vital Signs Reviewed: Yes - CONSTITUTIONAL General Appearance: alert, moderate distress, anxious. negative: combative - EYES Eyes: PERRL/EOMI, pink conjunctivae. negative: photophobia - HEAD, EARS, NOSE, MOUTH & THROAT HENMT: normocephalic/atraumatic, moist mucous membranes. negative: angioedema - NECK Neck: normal inspection - RESPIRATORY Respiratory: chest non-tender, lungs clear, normal breath sounds. negative: rales, rhonchi - CARDIOVASCULAR Cardiovascular: normal peripheral pulses, regular rate, rhythm, no edema. negative: bradycardia, tachycardia - GASTROINTESTINAL (ABDOMEN) Abdominal Exam: soft, abnormal bowel sounds (decreased), tenderness (generalized). negative: normal bowel sounds, distended, guarding - MUSCULOSKELETAL Back Exam: normal inspection, no CVA tenderness, no vertebral tenderness Extremity: deformity (BKA-left; AKA-right) - SKIN Integumentary: normal color. negative: diaphoresis, jaundice - PSYCHIATRIC Psych/Mental Status: normal mood/affect, oriented x 3. negative: disheveled Progress - PLAN OF CARE/RESULTS Progress/Plan/Lab Results: Vital Signs - 8 hr 05/03/19 00:49 Temperature 98.0 F Pulse Rate 99 H Respiratory Rate 28 H Blood Pressure 235/85 O2 Sat by Pulse Oximetry 95 Result Diagrams: 05/03/19 01:31 05/03/19 01:31 - XRAY 1 XRAY Study: Chest Impression: Normal - CT/MRI 2 CT Study: Abdomen, Pelvis Impression: Normal (advanced atherosclerotic disease with in abd aorta, advanced stenosis @ origin of SMA and bilat renal arteries) - CONSULTS/PCP/HOSPITALIST Notification #1 *Consult/PCP/Hospitalist*: Mukul Time Discussed: 05:19 Consult Disposition: Will see in ED, Admit Departure - Departure Date of Disposition Decision: 05/03/19 Time of Disposition Decision: 05:13 DIAGNOSIS: Sepsis Qualifiers: Sepsis type: sepsis due to unspecified organism Sepsis acute organ dysfunction status: without acute organ dysfunction Qualified Code(s): A41.9 - Sepsis, unspecified organism Abdominal pain Qualifiers: Abdominal location: generalized Qualified Code(s): R10.84 - Generalized abd ominal pain Diarrhea Qualifiers: Diarrhea type: unspecified type Qualified Code(s): R19.7 - Diarrhea, unspecified Disposition: ADMITTED INPATIENT 09 Certified Medical Emergency: Emergent Condition: Stable Referrals and Follow-Ups: Tucker Calero [NON-STAFF PROVIDER] - - Critical Care Note This patient required my direct & personal management of CC.: No Attestation - Physician/ JOLLY Attestation Patient care was provided by Advanced Practice Provider:: No The physician spent face to face time with patient:: Yes Advanced Practice Provider documentation review:: Supervising physician onsite and consulted in the evaluation and care of this patient. The physician did have a face to face encounter with the patient. This chart was documented by the indicated scribe, (Kathy Brink Scribe) and accurately reflects the services I performed and decisions made by me, Srinivasan Wilkins MD, as attested by the provider's signature.
[2019-05-03] MEDS ORDERED: ZOFRAN IV ONE (05:28)
--- NOTE | 2019-05-03 07:34 | Diag Imaging Result Doc PS360 ---
EXAM: CT ABD/PELVIS W/IV CONT ONLY 05/03/2019 HISTORY: Diarrhea, no bowel sounds TECHNIQUE: This exam was performed using automated exposure control, adjustment of mA or kV according to patient size, and/or use of iterative reconstruction technique. COMMENT: There is platelike atelectasis in the lateral costophrenic sulcus of the right lower lobe. There is extensive calcification in the distal descending thoracic and abdominal aorta. There is dense calcification in the proximal superior mesenteric artery and the proximal renal arteries bilaterally. The inferior mesenteric artery appears to be patent. There is dense calcification and probable stenosis in both common iliac arteries. The liver and spleen are unremarkable. The adrenal glands are not enlarged. The pancreas is within normal limits. There is some dilatation of the distal common bile duct to over 10 mm however there has been cholecystectomy and this is probably physiologic. There are multiple cysts present in both kidneys particularly in the upper pole of the left kidney where there is a cyst measuring over 4 cm. There are numerous diverticula in the left colon. There is fluid throughout the colon. There is no apparent mucosal thickening. The small bowel is not distended. There is no evidence of mucosal fold thickening where there is fluid outlining the mucosa. There is no significant adenopathy. Pelvis: There is marked diverticulosis in the sigmoid colon without evidence of acute diverticulitis. There is a Serrano catheter in the bladder. There has been hysterectomy. There is no evidence of significant adenopathy or free fluid. The regional skeleton appears to be intact. IMPRESSION: Severe vascular atherosclerotic changes. This is particularly true in the proximal renal and superior mesenteric arteries. There is nonspecific fluid in the colon and to a lesser extent the small bowel which may be indicative of enterocolitis. No mucosal thickening is present to suggest ischemic colitis, however the possibility of abdominal angina in this setting cannot be excluded. Other nonacute findings as described above. Electronically signed by Oumar Quiroz 05/03/2019 7:31 AM
[2019-05-03] MEDS ORDERED: ZOFRAN IV PRN (07:57)
--- NOTE | 2019-05-03 08:11 | Diag Imaging Result Doc PS360 ---
EXAM: CHEST-1 VIEW 05/03/2019 HISTORY: AMS TECHNIQUE: AP portable upright at 0224. COMMENT: The inspiration is less optimal than on 10/12/2016. Considering this there has been no appreciable change. IMPRESSION: Stable chest. Electronically signed by Oumar Quiroz 05/03/2019 8:09 AM
[2019-05-03] MEDS ORDERED: TYLENOL PO PRN (08:38)
[2019-05-03] MEDS: DILAUDID IV PRN (08:44)
[2019-05-03] MEDS: LOVENOX SUBQ SCH (09:45)
[2019-05-03] MEDS: PRILOSEC PO SCH ×2 (09:46→22:47)
[2019-05-03] MEDS: NEURONTIN PO SCH ×2 (09:46→22:47)
[2019-05-03] MEDS: NORVASC PO SCH (09:47)
[2019-05-03] MEDS: LOPRESSOR PO SCH ×2 (09:47→22:47)
[2019-05-03] MEDS: APRESOLINE IV PRN (09:50)
[2019-05-03] MEDS: ASPIRIN PO SCH (09:51)
[2019-05-03] MEDS: DEPAKOTE PO SCH (09:52)
[2019-05-03] MEDS: XANAX PO PRN (09:55)
[2019-05-03] MEDS: NS 1,000 ML IV SCH ×2 (10:01→23:09)
[2019-05-03] MEDS ORDERED: PHENERGAN IV PRN (10:06)
[2019-05-03] MEDS ORDERED: SODIUM CHLORIDE 0.9% INJ PRN (10:06)
[2019-05-03] MEDS ORDERED: LEVAQUIN 750 MG/D5W 750 MG/150 ML IVPB IV SCH (10:15)
[2019-05-03] MEDS: DUONEB (A & A) INH PRN (11:22)
[2019-05-03] MEDS ORDERED: HALDOL PO PRN (11:24)
--- NOTE | 2019-05-03 11:26 | EKG Report ---
Test Performed on : 05/03/2019 11:18:58 AM Test Reason : rythm eval Blood Pressure : / mmHG Vent. Rate : 123 BPM Atrial Rate : 123 BPM P-R Int : 138 ms QRS Dur : 088 ms QT Int : 324 ms P-R-T Axes : 062 044 092 degrees QTc Int : 463 ms Sinus tachycardia. Left ventricular hypertrophy with repolarization abnormality Abnormal ECG When compared with ECG of 29-JAN-2016 05:30, ST now depressed in Lateral leads Best of multiple attempts. KJohnRRT Confirmed by Cedric IVAN, Nitish Rivas ([id number]) on 05/06/2019 9:27:32 AM
--- NOTE | 2019-05-03 11:31 | HISTORY AND PHYSICAL ---
PRIMARY CARE PROVIDER: Polly Fuentes. CHIEF COMPLAINT: Abdominal pain. HISTORY OF PRESENT ILLNESS: Ms Makenzie Castillo is a 64-year-old female with a medical history of severe arterial disease with bilateral [id number] amputations, bipolar disorder primarily anxiety, GERD, hyperlipidemia, chronic pain, which she states is phantom pains in the lower extremities and diverticulosis. She apparently most recently actually had some popcorn and started developing pain around 4 or 5 p.m. yesterday. The pain was pretty severe and it would not ease up, so she came to the emergency department. Along with that pain she has had watery brown stools, nausea, vomiting that was mostly just the food she had been eating. The pain is currently stabbing. It is a 8/10. It is across the umbilicus from uvip-ya-dylos. Does not radiate anywhere. Most recently, she has been having bowel movements every 15 minutes and it is green in color. It does not smell. The patient feels like she has had fever. She has been having some chills. Imaging of the abdomen and pelvis shows severe vascular atherosclerotic changes particularly of the proximal renal and superior mesenteric arteries. There is nonspecific fluid in the colon which may represent enterocolitis. It does not show any suggestion of ischemic colitis. However, possibility of abdominal angina could not be excluded. Lactate initially was elevated, but after IV fluids, resolved, and we will admit her for further treatment and evaluation to PVC and trend her lactate. PAST MEDICAL HISTORY: 1. Renal artery stenosis with preserved kidney function. 2. Superior mesenteric artery stenosis. 3. Severe peripheral arterial disease, status post bilateral [id number] amputations. 4. Hypertension. 5. Asthma. 6. Bipolar disorder with primarily anxiety. 7. GERD. 8. Hyperlipidemia. 9. Peripheral neuropathy. 10. Chronic pain, primarily phantom pain of the lower extremities. 11. Diverticulosis. SURGICAL HISTORY: 1. Bilateral pdqbt-hni-tako amputations. 2. Exploratory laparotomy with hysterectomy and cholecystectomy. 3. Hysterectomy. 4. Cholecystectomy. 5. Total knee replacement. SOCIAL HISTORY: Quit smoking in 2013. She said she had never smoked every day. It was only on a rare occasion when she would drink beer. Currently, she denies drinking beer at all. No alcohol. No illicit drug use. She lives at home with her youngest daughter. Currently her oldest daughter is at the bedside. She is wheelchair bound. She does not use prostheses. FAMILY HISTORY: Mother: No medical conditions and her father was by the time she was born. ALLERGIES: Amoxicillin HOME MEDICATIONS: 1. Tricor 445 mg p.o. nightly. 2. Depakote 125 mg p.o. daily. 3. Percocet 7.5 one tablet p.o. t.i.d. scheduled. 4. Neurontin 300 mg p.o. b.i.d. 5. Pravachol 80 mg p.o. nightly. 6. Lopressor 25 mg p.o. twice daily. 7. Norvasc. Amlodipine 5 mg p.o. twice daily. REVIEW OF SYSTEMS: Fourteen point review of systems are complete and all were negative except for those mentioned above HPI. PHYSICAL EXAMINATION: VITAL SIGNS: Temperature 98.2 degrees, heart rate 145, respiratory rate 16, blood pressure 132/92, saturation 97% on 2 L nasal cannula. GENERAL: Ms. Makenzie Mccall is a 64-year-old female. She appears to be in acute distress with the abdominal pain. She is able to answer questions appropriately. HEENT: Atraumatic, normocephalic. Pupils equal, round, reactive to light. Extraocular movements intact. Mucous membranes are dry. NECK: Trachea midline. CARDIOVASCULAR: S1, S2. Tachycardic rate and rhythm. No rubs, gallops, murmurs. No lower extremity edema. +2 popliteal pulses +2 radial pulses. Negative JVD or carotid bruits. PULMONARY: Clear to auscultate. Bilateral breath sounds. No accessory muscle use or work of breathing noted. Tolerating 2 L nasal cannula next. GI: Soft. Hypoactive bowel sounds. Tender all along the mid abdomen from left to right around the umbilicus as well. EXTREMITIES: Moves all extremities equally. Full range of motion. NEUROLOGIC: A and O x3. Follows commands. Sensory is intact. SKIN: Warm, dry, intact. LABORATORY DATA: White blood cells 13,000, hemoglobin 15, hematocrit 48, platelet count 241,000. INR is 1.01, PTT is 34.2. Sodium 143, potassium 3.9, BUN 16, creatinine 0.7, glucose 133, calcium 9.7, bilirubin 0.37, AST 20, ALT 12, CK 96, troponin less than 0.01. Albumin is 4.7. Amylase 81, lipase 27, lactate 2.3, then 2.1 to 2. 1 again, urinalysis 200 protein, trace ketones, trace blood. Depakote level 74. IMAGING: Chest x-ray: No acute findings. Abdominal pelvic CT: Severe vascular atherosclerotic changes particularly true in the proximal renal and superior mesenteric arteries. Nonspecific fluid in the colon and to a lesser extent the small bowel which may be indicative of enterocolitis. No mucosal thickening is present to suggest ischemic colitis. However, the possibility of abdominal angina in this setting cannot be excluded. ASSESSMENT AND PLAN: 1. Abdominal pain, possible abdominal angina secondary to superior mesenteric artery stenosis. Back in 2014 she had a CTA which showed stenosis 20/50 and 70% at that time. She may benefit from taking aspirin on a daily basis, but we will go ahead and start doing daily lactate just to evaluate any type of ischemia and possibility of ischemia. We will continue her statin and for pain control it will be Dilaudid and her routine Percocet from home per her home dosing. 2. Renal artery stenosis with preserved kidney function. We will keep an eye on that on a daily basis. She is going to begin some IV fluids and she has also received a dose of IV dye for the imaging she has had. She is at risk for kidney dysfunction. 3. Bipolar disorder with anxiety. Depakote has been resumed. The anxiety is still pretty significant and so Xanax is added as needed. 4. Hypertensive urgency. She gets up to as high as the 200s, could be pain related as well, but her Norvasc has been resumed and she has p.r.n. Apresoline for systolic over 190. Her Lopressor has been resumed. 5. Enterocolitis and multiple spells of diarrhea. Will send off stool studies and start her on Flagyl and Levaquin. 6. Chronic pain, specifically phantom pain in the lower extremities, but she has also got acute pain in the abdomen at this time, but again she is on the Percocet that she takes at home. The home dosing and the Dilaudid and the Neurontin been added that she takes at home as well p.r.n. Tylenol. 7. History of asthma with current hypoxemic respiratory insufficiency. She is on 2 L nasal cannula on room air. She was 91 saturation. With 2 L she is 97 saturation and she has p.r.n. nebulizers if she needs it. 8. Gastroesophageal reflux disease. We will do Prilosec 40 mg p.o. twice a day. 9. Hyperlipidemia. Looks like we are discontinuing the statin for now. 10. Deep venous thrombosis prophylaxis, Lovenox. Dictated by LARISSA Chand for Carlos Patel MD cc: LARISSA Chand agree with the above. the following is my own face to face assessment. patient is agitated and somewhat confused at the time of my exam so history is per family and the medical record. patient presented complaining of abdominal pain, nausea, and vomiting that occured after eating. patient has a known history of severe arterial disease and has been noted to have a 70% SMA occlusion on CTA abdomen several years ago. CT today showing no definite pathology but I suspect mesenteric ischemia, likely exacerbated by markedly uncontrolled hypertension with SBP >230 on presentation. Patient also with severe psychomotor agitation, some pressured speech and tangentiality. she may be getting into a manic episode. will control BP with goal 160-190 initially. give haldol and ativan to try and calm her down some. will see if we can get a dedicated CTA of the abdomen tomorrow but we can't tonight as she's already had dye. MTDD
[2019-05-03] MEDS ORDERED: ATIVAN ONE (11:40)
[2019-05-03] MEDS ORDERED: HALDOL IM PRN (11:44)
[2019-05-03] MEDS ORDERED: HALDOL IV PRN (13:23)
[2019-05-03] MEDS ORDERED: ATIVAN IV PRN (13:32)
[2019-05-03] MEDS: HALDOL IV PRN (13:46)
[2019-05-03] MEDS: FLAGYL 500 MG/NS 500 MG/100 ML IVPB IV SCH ×2 (14:19→20:48)
[2019-05-03] MEDS: PRAVACHOL PO SCH (22:47)
[2019-05-04] MEDS ORDERED: VANCOMYCIN IV PER PHARMACY MISC SCH (03:15)
[2019-05-04] MEDS: FLAGYL 500 MG/NS 500 MG/100 ML IVPB IV SCH ×3 (04:21→21:16)
[2019-05-04] MEDS: PERCOCET-5 PO PRN (04:21)
[2019-05-04] MEDS ORDERED: VANCOMYCIN 1,450 MG in NS 250 ML IV ONE (05:30)
[2019-05-04 05:42] LABS: BASO# 0.02 X1000 (0.0-0.2); BASO% 0.2 % (0.0-0.8); EOS# 0.01 X1000 (0.0-0.7); EOS% 0.1 % (0.0-10.0); HEMATOCRIT 44.3 % (37.0-47.0); HEMOGLOBIN 14.1 g/dL (12.0-16.0); IMM GRAN# 0.04 X1000 (0.0-0.04); IMM GRAN% 0.4 % (0.0-0.5); LYMPH# 2.82 X1000 (1.2-3.4); LYMPH% 26.7 % (20.5-51.1); MCH 28.3 PG (27-31); MCHC 31.8 g/dL (33-37); MONO# 0.99 X1000 (0.11-0.59); MONO% 9.4 % (1.7-9.3); MPV 10.4 FL (7.4-10.4); NEUT# 6.68 X1000 (1.4-6.5); NEUT% 63.2 % (42.2-75.2); PLT 214 X1000 (130-400); RBC 4.98 XMIL (4.2-5.4); RDW 15.6 % (11.5-14.5); WBC 10.56 X1000 (4.8-10.8)
[2019-05-04 05:50] LABS: URINE SOURCE CATH
[2019-05-04 05:52] LABS: BILIRUBIN URINE NEGATIVE (NEGATIVE); BLOOD URINE MODERATE (NEGATIVE); COLOR YELLOW; GLUCOSE URINE NEGATIVE (NEGATIVE); KETONE URINE 10 mg/dL (NEGATIVE); LEUKOCYTES URINE NEGATIVE (NEGATIVE); NITRITE URINE NEGATIVE (NEGATIVE); PH URINE 6.5; PROTEIN URINE 200 mg/dL (NEGATIVE); TURBIDITY URINE CLEAR (CLEAR); UROBILINOGEN URINE NORMAL (NORMAL)
[2019-05-04 05:53] LABS: UR EPITHELIAL CELLS <10 /HPF (<10); URINE BACTERIA NEGATIVE /HPF; URINE RBC <10 /HPF (<10); URINE WBC <10 /HPF (<10)
[2019-05-04 06:46] LABS: SP GRAVITY URINE 1.015
[2019-05-04 06:48] LABS: AGAP 16; ALB/GLOB RATIO 1.3; ALBUMIN 3.9 g/dL (3.5-5.0); ALKALINE PHOSPHATASE 89 U/L (32-104); BUN 19 mg/dL (8-22); CALCIUM 8.6 mg/dL (8.8-10.2); CHLORIDE 106 mmol/L (98-107); CK TOTAL 400 U/L (24-173); COSMO 280; CREATININE 0.9 mg/dL (0.5-0.9); ESTIMATED GFR > 60; GLUCOSE 106 mg/dL (70-104); GOT 21 U/L (10-30); GPT 10 U/L (10-36); MAGNESIUM 1.6 mg/dL (1.5-2.7); POTASSIUM 3.9 mmol/L (3.5-5.1); SODIUM 139 mmol/L (136-145); TCO2 17 mmol/L (25-35); TOTAL BILIRUBIN 0.27 mg/dL (0.20-1.00)
[2019-05-04] MEDS: LOPRESSOR PO SCH ×2 (08:23→21:16)
[2019-05-04] MEDS: LOVENOX SUBQ SCH (08:23)
[2019-05-04] MEDS: NEURONTIN PO SCH ×2 (08:23→21:16)
[2019-05-04] MEDS: ASPIRIN PO SCH (08:23)
[2019-05-04] MEDS: DEPAKOTE PO SCH (08:23)
[2019-05-04] MEDS: PRILOSEC PO SCH ×2 (08:23→21:16)
[2019-05-04] MEDS: NORVASC PO SCH (08:23)
[2019-05-04] MEDS: DILAUDID IV PRN ×3 (09:13→21:19)
[2019-05-04] MEDS ORDERED: NS 1,000 ML IV SCH (10:25)
[2019-05-04] MEDS ORDERED: CALMOSEPTINE OINTMENT TOP PRN (11:19)
--- NOTE | 2019-05-04 12:11 | PROGRESS NOTE ---
DATE: 05/04/2019 SUBJECTIVE: This patient is still complaining of abdominal pain but she seems to be a little bit better compared with yesterday. She is still having diarrhea, at least 5 bowel movements since midnight. She is getting IV fluids. Her kidney function has been stable. We have a positive blood culture that showed gram-positive cocci and she has been placed on vancomycin. C difficile antigen and C difficile toxin negative. OBJECTIVE: Vital signs: Temperature 98.3 degrees, pulse 125, respiratory rate 16, blood pressure 141/73, oxygen saturation 97% on 3 L of nasal cannula. HEENT: Head normocephalic, no trauma. PERRLA. Neck: Supple. No JVD. No masses. Central trachea. Chest: Clear to auscultation. No wheezing. No rales. Abdomen: Soft. Tenderness to palpation at the level of the lower abdomen, especially the left lower quadrant. No signs of peritoneal irritation. Positive bowel sounds actually hyperactive. Extremities: Bilateral lower extremity amputation. LABORATORY DATA: WBC 10.5, hemoglobin 14.1, hematocrit 44.3, platelets 214,000. Sodium 139, potassium 3.9, chloride 106, bicarbonate 17, BUN 19, creatinine 0.9, glucose 106, calcium 8.6. ASSESSMENT AND PLAN: 1. Abdominal pain, likely due to gastroenteritis, but this patient has really bad vasculature, so the possibility of abdominal angina secondary to superior mesenteric artery stenosis is present, but I do believe given her diarrhea, this is likely enterocolitis. She seems to be feeling better but I will keep an eye on her. 2. Renal artery stenosis with preserved kidney function, aware. Continue with IV fluids. 3. Bipolar disorder with anxiety. Continue with Depakote. 4. Hypertensive urgency. Blood pressure is better controlled. We will continue with same treatment. 5. Enterocolitis. She is still having diarrhea. Clostridium difficile toxin and antigen are negative. Continue with Flagyl and Levaquin. 6. Gram-positive cocci blood culture. Continue vancomycin for now. 7. History of asthma with hypoxemic respiratory failure. Continue with oxygen supplementation. 8. Gastroesophageal reflux disease. Continue proton pump inhibitors. 9. Hyperlipidemia, aware. She is on statins. 10. Deep vein thrombosis prophylaxis with Lovenox. cc: Ye Gutierrez MD
--- NOTE | 2019-05-04 12:27 | EKG Report ---
Test Performed on : 05/04/2019 06:52:58 AM Test Reason : chest pain Blood Pressure : / mmHG Vent. Rate : 126 BPM Atrial Rate : 126 BPM P-R Int : 166 ms QRS Dur : 088 ms QT Int : 300 ms P-R-T Axes : 046 036 025 degrees QTc Int : 434 ms Sinus tachycardia. Possible Anterior infarct , age undetermined Abnormal ECG When compared with ECG of 03-MAY-2019 11:18, (Unconfirmed) ST no longer depressed in Lateral leads Nonspecific T wave abnormality now evident in Inferior leads Confirmed by Cedric IVAN, Nitish Rivas ([id number]) on 05/06/2019 9:28:19 AM
[2019-05-04] MEDS: ZYVOX 600 MG/D5W 600 MG/300 ML IVPB IV SCH (17:03)
[2019-05-04] MEDS: NS 1,000 ML IV SCH (17:03)
[2019-05-04] MEDS: PRAVACHOL PO SCH (21:16)
[2019-05-05] MEDS: NS 1,000 ML IV SCH ×3 (01:09→08:22)
[2019-05-05] MEDS: PERCOCET-5 PO PRN ×3 (01:36→17:07)
[2019-05-05] MEDS: FLAGYL 500 MG/NS 500 MG/100 ML IVPB IV SCH ×3 (03:08→19:34)
[2019-05-05] MEDS: ZYVOX 600 MG/D5W 600 MG/300 ML IVPB IV SCH (04:46)
[2019-05-05] MEDS: DILAUDID IV PRN ×4 (04:58→19:35)
[2019-05-05] MEDS ORDERED: VANCOMYCIN 1,150 MG in NS 250 ML IV SCH (05:30)
[2019-05-05 07:20] LABS: BASO# 0.05 X1000 (0.0-0.2); BASO% 0.6 % (0.0-0.8); EOS# 0.07 X1000 (0.0-0.7); EOS% 0.8 % (0.0-10.0); HEMATOCRIT 40.6 % (37.0-47.0); HEMOGLOBIN 12.5 g/dL (12.0-16.0); IMM GRAN# 0.02 X1000 (0.0-0.04); IMM GRAN% 0.2 % (0.0-0.5); LYMPH# 3.18 X1000 (1.2-3.4); LYMPH% 38.6 % (20.5-51.1); MCH 28.5 PG (27-31); MCHC 30.8 g/dL (33-37); MCV 92.5 FL (81-99); MONO# 0.68 X1000 (0.11-0.59); MONO% 8.3 % (1.7-9.3); MPV 10.7 FL (7.4-10.4); NEUT# 4.24 X1000 (1.4-6.5); NEUT% 51.5 % (42.2-75.2); PLT 172 X1000 (130-400); RBC 4.39 XMIL (4.2-5.4); RDW 15.6 % (11.5-14.5); WBC 8.24 X1000 (4.8-10.8)
[2019-05-05 07:43] LABS: ESTIMATED GFR > 60
[2019-05-05 07:53] LABS: AGAP 17; ALB/GLOB RATIO 1.3; ALBUMIN 3.3 g/dL (3.5-5.0); ALKALINE PHOSPHATASE 70 U/L (32-104); BUN 16 mg/dL (8-22); CALCIUM 8.4 mg/dL (8.8-10.2); CHLORIDE 109 mmol/L (98-107); COSMO 284; CREATININE 0.7 mg/dL (0.5-0.9); GLUCOSE 118 mg/dL (70-104); GOT 16 U/L (10-30); GPT 7 U/L (10-36); MAGNESIUM 1.4 mg/dL (1.5-2.7); POTASSIUM 3.8 mmol/L (3.5-5.1); SODIUM 141 mmol/L (136-145); TCO2 15 mmol/L (25-35); TOTAL BILIRUBIN 0.25 mg/dL (0.20-1.00); TOTAL PROTEIN 5.8 g/dL (6.3-8.3)
[2019-05-05] MEDS: NORVASC PO SCH (08:21)
[2019-05-05] MEDS: DEPAKOTE PO SCH (08:21)
[2019-05-05] MEDS: PRILOSEC PO SCH ×2 (08:21→21:04)
[2019-05-05] MEDS: ASPIRIN PO SCH (08:21)
[2019-05-05] MEDS: NEURONTIN PO SCH ×2 (08:21→21:08)
[2019-05-05] MEDS: LOPRESSOR PO SCH ×2 (08:21→21:04)
[2019-05-05] MEDS: LOVENOX SUBQ SCH (08:22)
[2019-05-05] MEDS ORDERED: MAGNESIUM SULFATE 2 GM/S.W.I. 2 GM/50 ML IVPB IV ONE (09:03)
--- NOTE | 2019-05-05 10:17 | PROGRESS NOTE ---
DATE: 05/05/2019 SUBJECTIVE: This patient is still complaining of some abdominal pain, mostly in the lower area. No more bowel movements since yesterday night and they were watery. Her urine output is low, even though he her BUN and creatinine are normal, and it looks like it has been that way for the past few days. We have been irrigating the Serrano catheter. I will get the nephrology department to evaluate this patient. Due to her severe atherosclerotic changes and possible stenosis of the renal arteries, I am hesitant to decrease her blood pressure drastically. OBJECTIVE: Vital Signs: Temperature 98 degrees, pulse 87, respiratory rate 20, blood pressure 173/65, oxygen saturation 99 on 3 L nasal cannula. HEENT: Head normocephalic, no trauma. PERRLA. Neck: Supple. No JVD. No masses. Central trachea. Chest: Clear to auscultation. No wheezing. No rales. Abdomen: Soft. Tenderness to palpation at the level of the lower abdomen, especially the left lower quadrant. No signs of peritoneal irritation. Positive bowel sounds. Extremities: Bilateral lower extremity amputation. No edema. LABORATORY: WBC 8.2, hemoglobin 12.5, hematocrit 40.6, platelets 172,000, sodium 141, potassium 3.8, chloride 109, bicarbonate 15, BUN 16, creatinine 0.7, glucose 118, calcium 8.4, magnesium 1.4, and albumin 3.3. ASSESSMENT AND PLAN: 1. Abdominal pain, likely due to gastroenteritis, but this patient also has had really bad vasculature, so the possibility of abdominal angina secondary to superior mesenteric artery stenosis is possible, but I do believe given her diarrhea, this is likely enterocolitis and she seems to be feeling better. There was no diarrhea during the night. 2. Renal artery stenosis with preserved kidney function. The urine output is significantly low. Even though the BUN and creatinine are within normal limits, it is a bit higher from baseline, and also this patient is acidotic, so I have requested an evaluation by the nephrology department. 3. Bipolar disorder with anxiety. Continue with Depakote. 4. Hypertensive urgency. The blood pressure is better controlled. 5. Enterocolitis. She is still having some diarrhea, especially yesterday. No more diarrhea during the night. C difficile colitis has been ruled out. 6. Gram-positive cocci in blood culture, that showed coagulase-negative staphylococci, this is a contamination. 7. History of asthma with hypoxemic respiratory failure. Continue with oxygen supplementation. 8. Gastroesophageal reflux disease. Continue PPI. 9. Hyperlipidemia, aware. She is on a statin. 10. Deep vein thrombosis (DVT) prophylaxis with Lovenox. cc: Ye Gutierrez MD
[2019-05-05] MEDS: XANAX PO PRN ×2 (10:25→21:12)
[2019-05-05] MEDS: 1/2 NS 1,000 ML IV SCH ×2 (12:45→23:10)
[2019-05-05] MEDS: PRAVACHOL PO SCH (21:04)
[2019-05-06] MEDS: DILAUDID IV PRN ×3 (00:21→20:08)
[2019-05-06] MEDS ORDERED: BENADRYL IV ONE (00:57)
[2019-05-06 01:27] LABS: URINE SOURCE CATH
[2019-05-06 01:29] LABS: BILIRUBIN URINE NEGATIVE (NEGATIVE); BLOOD URINE LARGE (NEGATIVE); COLOR YELLOW; GLUCOSE URINE NEGATIVE (NEGATIVE); KETONE URINE NEGATIVE (NEGATIVE); LEUKOCYTES URINE MODERATE (NEGATIVE); NITRITE URINE NEGATIVE (NEGATIVE); PH URINE 6.5; PROTEIN URINE TRACE mg/dL (NEGATIVE); SP GRAVITY URINE 1.008; TURBIDITY URINE CLEAR (CLEAR); UROBILINOGEN URINE NORMAL (NORMAL)
[2019-05-06 01:30] LABS: UR EPITHELIAL CELLS <10 /HPF (<10); URINE BACTERIA NEGATIVE /HPF
[2019-05-06] MEDS: 1/2 NS 1,000 ML IV SCH (03:08)
[2019-05-06] MEDS: FLAGYL 500 MG/NS 500 MG/100 ML IVPB IV SCH ×3 (03:09→20:44)
[2019-05-06 06:44] LABS: BASO# 0.01 X1000 (0.0-0.2); BASO% 0.1 % (0.0-0.8); EOS# 0.16 X1000 (0.0-0.7); HEMATOCRIT 38.2 % (37.0-47.0); HEMOGLOBIN 11.7 g/dL (12.0-16.0); IMM GRAN# 0.02 X1000 (0.0-0.04); IMM GRAN% 0.2 % (0.0-0.5); LYMPH# 2.08 X1000 (1.2-3.4); LYMPH% 25.6 % (20.5-51.1); MCH 27.5 PG (27-31); MCHC 30.6 g/dL (33-37); MCV 89.9 FL (81-99); MONO# 0.87 X1000 (0.11-0.59); MONO% 10.7 % (1.7-9.3); MPV 10.6 FL (7.4-10.4); NEUT# 4.98 X1000 (1.4-6.5); NEUT% 61.4 % (42.2-75.2); PLT 156 X1000 (130-400); RBC 4.25 XMIL (4.2-5.4); WBC 8.12 X1000 (4.8-10.8)
--- NOTE | 2019-05-06 07:18 | Diag Imaging Result Doc PS360 ---
EXAM: CHEST-PORTABLE HISTORY: dyspnea TECHNIQUE: Single view COMPARISON: 05/03/2019 FINDINGS: Poor inspiratory effort. The heart is mildly enlarged. Mild central vascular prominence. Pleural effusions identified. IMPRESSION: Mild cardiomegaly and pulmonary edema. Electronically signed by Griffin Almodovar 05/06/2019 7:16 AM
[2019-05-06 07:23] LABS: AGAP 12; ALB/GLOB RATIO 1.4; ALBUMIN 3.4 g/dL (3.5-5.0); ALKALINE PHOSPHATASE 75 U/L (32-104); BUN 12 mg/dL (8-22); CALCIUM 8.1 mg/dL (8.8-10.2); CHLORIDE 110 mmol/L (98-107); COSMO 284; CREATININE 0.6 mg/dL (0.5-0.9); ESTIMATED GFR > 60; GLUCOSE 89 mg/dL (70-104); GOT 20 U/L (10-30); GPT 12 U/L (10-36); MAGNESIUM 1.7 mg/dL (1.5-2.7); POTASSIUM 3.7 mmol/L (3.5-5.1); SODIUM 143 mmol/L (136-145); TCO2 21 mmol/L (25-35); TOTAL BILIRUBIN 0.23 mg/dL (0.20-1.00); TOTAL PROTEIN 5.8 g/dL (6.3-8.3)
[2019-05-06] MEDS: DUONEB (A & A) INH PRN ×3 (08:07→16:19)
[2019-05-06] MEDS: COREG PO SCH ×2 (08:51→20:07)
[2019-05-06] MEDS: DEPAKOTE PO SCH (08:51)
[2019-05-06] MEDS: PRILOSEC PO SCH ×2 (08:53→20:07)
[2019-05-06] MEDS: ASPIRIN PO SCH (08:54)
[2019-05-06] MEDS: LOVENOX SUBQ SCH (08:54)
[2019-05-06] MEDS: NEURONTIN PO SCH ×2 (08:54→20:07)
[2019-05-06] MEDS: NORVASC PO SCH (08:54)
[2019-05-06] MEDS: XANAX PO PRN ×3 (09:12→22:26)
--- NOTE | 2019-05-06 12:04 | NEPHROLOGY CONSULTATION ---
DATE: 05/06/2019 REASON FOR ADMISSION: Abdominal discomfort associated with nausea and diarrhea. Date of consult is 05/06/2019. REASON FOR CONSULT: Oliguria with decreased urinary output. Consulting physician: Dr. Patel. HISTORY OF PRESENT ILLNESS: Ms. Castillo is a 64-year-old female with a strong medical history of severe arterial disease with bilateral [id number] amputation. She has chronic pain secondary to her phantom limb pain noted. She has recently had complaints for 2 to 3 days prior to her admission of nausea, vomiting, and chronic diarrhea of anywhere from 4 to 5 episodes daily. She states that it is just water. She had also developed some lower abdominal discomfort. She states that it is associated with cramping prior to having her diarrheal episodes. She has been nauseated with this stating that her diarrheal stools had been green in color, watery. Does not smell. She states that she has had a fever though none noted during her hospitalization. She had a elevated lactate during her hospital stay which had resolved after IV fluid resuscitation. She had a lower abdominal CT showing nonspecific fluid in the colon which represents enteric colitis suggestion of ischemic colitis present, though not really now abdominal angina. She states that she is feeling much better at this time. Able to eat and drink, though her diarrhea stools continue though lessened since hospitalization. PAST MEDICAL HISTORY: Renal artery stenosis with preserved kidney function, superior mesenteric artery stenosis, severe peripheral arterial disease with bilateral [id number] amputations, hypertension, asthma, bipolar disorder with primary anxiety, GERD, hyperlipidemia, peripheral neuropathy, chronic pain secondary to phantom pain to lower extremities and diverticulosis. PREVIOUS SURGICAL HISTORY: Bilateral above the knee amputation, exploratory laparotomy with hysterectomy and cholecystectomy, total knee replacement. SOCIAL HISTORY: She currently lives with her youngest daughter, wheelchair- bound. Does not use prosthesis. Previous smoker every day. Quit smoking in 2013. Rare occasion for alcohol content. Mostly beer if drinks. No illicit drug use documented. FAMILY HISTORY: Mother with medical disease with hypertension and heart. No medical conditions with her father who was when she was born. MEDICATIONS: Reviewed for home have been Tricor, Depakote, Percocet, Neurontin, Pravachol, Lopressor, and Norvasc. ALLERGIES: Amoxicillin. REVIEW OF SYSTEMS: Times 10 with pertinent positives listed above in the HP. MOST RECENT VITAL SIGNS: Blood pressure 179/66, heart rate 87, respirations are 16. She is on 2 L nasal cannula. Last recorded saturation 100%. She has had 2182 in and 875 out to Serrano catheter. LABORATORY DATA: Sodium is 143, potassium 3.7, chloride 110, CO2 21, BUN 12, creatinine 0.6, glucose is 89. Her anion gap is 12, calcium 8.1, albumin 3.4 with a magnesium of 1.7. Previous hemoglobin of 12.5. Her plasma lactate is 0.9. The patient is positive for coag-negative staphylococcus on blood cultures. Urinalysis shows trace proteinuria. PHYSICAL EXAMINATION: General: This is a 64-year-old female resting quietly in bed. She appears chronically ill. No acute distress. Skin: Warm and dry. HEENT: Normocephalic, atraumatic. Conjunctiva is pale pink. She has MARIALUISA. Mucous membranes are moist. Neck: Supple. Trachea midline. She has positive JVD with no hepatic jugular reflux. Cardiovascular: Regular rate and rhythm. S4 is present. Lungs: Clear to auscultation bilaterally. Equal excursion. She is on O2. Abdomen: Large, round, soft, no tenderness noted to soft palpation. Genitourinary: Not inspected Serrano catheter is in place. Extremities: Bilateral AKA. Neurological: She is alert and oriented x3. Able to follow commands. Integumentary: No rashes or lesions evident. ASSESSMENT: Oliguria. The patient's urine output has improved secondary to increased fluid volume status. We have discussed stopping her IV fluids. PLAN: We will change her Lopressor to Coreg 25 mg b.i.d. to manage her blood pressure. BUN and creatinine are stable secondary to her improvement in her fluid volume status. We will sign off at this time and remain available during her hospital stay if needed. I would like to thank you for allowing us to follow with this patient. Dictated by LARISSA Argueta for Jeyson Brown MD Face to face encounter, data reviewed, discussed with Sofía Guardado on 05/06/19. I agree with the above assessment and plan of care. cc: LARISSA Argueta MD [facility]
[2019-05-06] MEDS ORDERED: DIFLUCAN PO ONE (15:07)
--- NOTE | 2019-05-06 15:46 | PROGRESS NOTE ---
DATE: 05/06/2019 SUBJECTIVE: Today, Ms. Castillo referred to be doing well. She referred to have some pains in the right shoulder. According to her, the abdominal pain has significantly improved. OBJECTIVE: Vital signs: Blood pressure is 161/61, pulse of 88, respiration is 15, temperature 98.8 degrees. General: Ms. Castillo is a 64-year-old female. She is in bed. No distress. HEENT: Mucosa is pink and moist. Anicteric. Acyanotic. Neck: Supple. No JVD. Chest: Good air entry bilaterally. No crepitations. No rhonchi. Cardiovascular: Regular rate and rhythm. Gastrointestinal: Abdomen is soft. Bowel sounds present. Extremities: Patient is a double amputee. She has a left BKA and a right AKA. Central Nervous System: Patient is awake and alert. LABORATORY DATA: CBC is completely normal. Chemistry is also within normal range. IMAGING STUDIES: Have all been reviewed. A CT scan of the abdomen and pelvis did make mention of severe vascular atherosclerotic changes. ASSESSMENT: 1. Abdominal pain on admission secondary to gastroenteritis under background of possible mesenteric angina. 2. Renal artery stenosis on CT scan. 3. Bipolar disorder with anxiety. 4. Hypertensive urgency. Blood pressure has improved. 5. Enterocolitis. 6. Bilateral amputee due to severe peripheral vascular disease. PLAN: In general, I think Ms. Castillo is doing a lot better. Abdominal pain has significantly improved. The patient has not had anymore bowel movement documented since admission. She has been advanced to GI soft diet and has been evaluated by Nephrology today. We have changed her pravastatin to Crestor as a high-intensity statin. We are going to discontinue the Serrano catheter. Re-evaluate Ms. Castillo tomorrow. If she continues to be stable, she will be able to be discharged. We have added Culturelle as a probiotic. Ms. Castillo and the son have already been notified and have shown both of them her abdomen and pelvic image which made reference of the severe vascular atherosclerosis and the need for further outpatient evaluation by vascular surgeon at a later date. cc: Jm Bell MD
[2019-05-06] MEDS: PERCOCET-5 PO PRN (17:37)
[2019-05-06] MEDS: CULTURELLE PO SCH (20:07)
[2019-05-07] MEDS: HALDOL IV PRN (01:16)
[2019-05-07] MEDS: FLAGYL 500 MG/NS 500 MG/100 ML IVPB IV SCH ×2 (04:42→11:50)
[2019-05-07 07:51] LABS: BASO# 0.01 X1000 (0.0-0.2); BASO% 0.1 % (0.0-0.8); EOS# 0.16 X1000 (0.0-0.7); EOS% 2.2 % (0.0-10.0); HEMATOCRIT 36.5 % (37.0-47.0); HEMOGLOBIN 11.5 g/dL (12.0-16.0); LYMPH# 2.51 X1000 (1.2-3.4); MCH 27.6 PG (27-31); MCHC 31.5 g/dL (33-37); MCV 87.7 FL (81-99); MONO# 0.81 X1000 (0.11-0.59); MPV 11.7 FL (7.4-10.4); NEUT# 3.89 X1000 (1.4-6.5); NEUT% 52.7 % (42.2-75.2); PLT 142 X1000 (130-400); RBC 4.16 XMIL (4.2-5.4); RDW 14.9 % (11.5-14.5); WBC 7.38 X1000 (4.8-10.8)
[2019-05-07] MEDS: APRESOLINE IV PRN (07:57)
[2019-05-07] MEDS: NEURONTIN PO SCH (08:00)
[2019-05-07] MEDS: ASPIRIN PO SCH (08:01)
[2019-05-07] MEDS: PRILOSEC PO SCH (08:01)
[2019-05-07] MEDS: NORVASC PO SCH (08:02)
[2019-05-07] MEDS: COREG PO SCH (08:02)
[2019-05-07] MEDS: CULTURELLE PO SCH (08:03)
[2019-05-07] MEDS: LOVENOX SUBQ SCH (08:03)
[2019-05-07 08:13] LABS: AGAP 13; ALB/GLOB RATIO 1.3; ALBUMIN 3.4 g/dL (3.5-5.0); ALKALINE PHOSPHATASE 74 U/L (32-104); BUN 9 mg/dL (8-22); CALCIUM 8.3 mg/dL (8.8-10.2); CHLORIDE 110 mmol/L (98-107); COSMO 289; CREATININE 0.5 mg/dL (0.5-0.9); ESTIMATED GFR > 60; GLUCOSE 86 mg/dL (70-104); GOT 15 U/L (10-30); GPT 11 U/L (10-36); MAGNESIUM 1.4 mg/dL (1.5-2.7); POTASSIUM 3.3 mmol/L (3.5-5.1); SODIUM 146 mmol/L (136-145); TCO2 23 mmol/L (25-35); TOTAL BILIRUBIN 0.21 mg/dL (0.20-1.00)
[2019-05-07] MEDS: DUONEB (A & A) INH PRN ×2 (08:23→11:44)
[2019-05-07] MEDS ORDERED: KLOR-CON PO ONE (08:29)
[2019-05-07] MEDS ORDERED: MAGNESIUM SULFATE 2 GM/S.W.I. 2 GM/50 ML IVPB IV ONE (08:29)
[2019-05-07 08:35] LABS: CHOLESTEROL 115 mg/dL (0-200); HDL 41 mg/dL (45-65); LDL 53 mg/dL; TRIGLYCERIDES 107 mg/dL (35-135); VLDL 21 mg/dL
[2019-05-07] MEDS ORDERED: CRESTOR PO SCH (09:00)
[2019-05-07] MEDS: PERCOCET-5 PO PRN (09:30)
[2019-05-07] MEDS: XANAX PO PRN (09:31)
[2019-05-07 11:55] VITALS: BP 166/57
--- NOTE | 2019-05-09 07:51 | DISCHARGE SUMMARY ---
ADMISSION DATE: 05/03/2019 DISCHARGE DATE: 05/07/2019 DISPOSITION: Is home. FOLLOW-UP: 1. Dr. Houser. 2. Dr. Tucker Calero. CONSULTATION DURING THIS ADMISSION: None. INVASIVE PROCEDURES DONE DURING THIS ADMISSION: 1. CT scan of the abdomen shows severe vascular atherosclerotic changes. 2. Chest x-ray was stable. 3. A repeat chest x-ray shows mild cardiomegaly and pulmonary congestion. ADMISSION DIAGNOSES: 1. Abdominal pain. Possible abdominal angina. 2. Renal artery stenosis. 3. Hypertension urgency. 4. Enterocolitis. DIAGNOSES AT THE TIME OF DISCHARGE: 1. Abdominal pain secondary to gastroenteritis on background of possible mesenteric angina. 2. Renal artery stenosis on CT scan with normal renal functions. 3. Bipolar disorder with anxiety. 4. Hypertensive urgency. 5. Enterocolitis. 6. Bilateral amputee due to severe peripheral vascular disease. 7. Dyslipidemia. 8. Hypertension. PRESENTING COMPLAINT: Abdominal pain. HISTORY OF PRESENTING COMPLAINT: Ms. Castillo is a 64-year-old female who is a double amputee because of severe peripheral vascular disease, came to the emergency department because of abdominal pain and diarrhea. She was evaluated including a CT scan that suggested possible enterocolitis and mesenteric angina. Ms. Castillo was admitted to the medical floor. HOSPITAL COURSE: Ms. Castillo was admitted to the medical floor under tele monitoring. Her stools were sampled for studies and she was started on antimicrobial coverage. She was also found to be extremely hypertensive on admission. Home medications were started and titrated. Blood pressure was better controlled. During the hospital course Ms. Castillo' diarrhea resolved. Abdominal pain also improved. Her CT scan does suggest severe atherosclerosis of the aorta and its branches. Ms. Castillo has been advised to follow up with a vascular surgeon to determine if anything can be done in terms of intervention for this severe aortic atherosclerosis. At the time of the discharge Ms. Castillo was completely asymptomatic. Diarrhea has resolved. Abdominal pain is also resolved. Discharge vitals: Blood pressure was 166/57, pulse of 89, respirations 18, temperature is 99 degrees. We think Ms. Castillo is stable to be discharged. She needs to follow up with her primary care doctor as well as a vascular surgeon. DISCHARGE MEDICATION: List includes 1. Gabapentin 300 b.i.d. 2. Fenofibrate. 3. Valproic acid 125 p.o. daily. 4. Oxycodone. 5. Carvedilol 12.5 b.i.d. 6. Crestor 40 mg p.o. daily. 7. Metronidazole 250 three times per day. 8. Amlodipine 10 mg p.o. daily. 9. Omeprazole 40 mg b.i.d. 10. Aspirin 81 mg p.o. daily. 11. Lactobacillus 1 tablet b.i.d. All the discharge instructions have been discussed with her and she voiced understanding. Time spent for discharge is 38 minutes. cc: Jm Bell MD
== END 2019-05-07 16:08 | disposition home or self-care (01) | DRG 872 ==
LOC: ED 00:45 → EDIPHOLD 08:49 → SUATTDRO 08:49 → 2N 11:54 → 4N 05-06 20:32
PROVIDERS: ATTEND Internal Medicine